=== PATIENT | female | born 1965 | race Caucasian/White ===

== ENCOUNTER 2022-11-18 12:31 | Emergency (ER) | payer BC, SELFPAY ==
[2022-11-18 12:32] VITALS: BP 146/99; PULSE 105; RESP 22; TEMP 36.8; O2SAT 97; BMI 36.6
--- NOTE | 2022-11-18 12:46 | CT_ITS ---
STUDY: CT ABDOMEN AND PELVIS WITH CONTRAST - URINARY TRACT REASON FOR EXAM: Female, 57 years old. Abdominal pain, diarrhea RADIATION DOSAGE (If Supplied By Facility): CTDIvol = ( 13.89 ) mGy, DLP = ( 1054.05 ) mGycm TECHNIQUE: IV 100mL Isovue-300 was administered. Transaxial images were obtained from the dome of the diaphragm to the symphysis pubis subsequent to intravenous contrast administration Multiplanar coronal and sagittal images were reformatted. Individualized Dose Optimization Techniques Were Used For This CT. COMPARISON: Prior study dated: May 07, 2016 FINDINGS: The visualized lung bases are unremarkable. The visualized portions of the heart are within normal limits. Normal liver. There is non-visualization of the gallbladder, which may be secondary to either contraction or a prior cholecystectomy. Normal spleen. Normal pancreas. Normal bilateral adrenal glands. There is a small hiatal hernia. Normal small intestine. There is diverticulosis, with thickening of the sigmoid colon wall, and pericolonic inflammation changes consistent with acute diverticulitis. The appendix is visualized and appears normal. There is diffuse atherosclerotic calcification of the abdominal aorta, without a demonstrated aneurysm. No retroperitoneal adenopathy. Normal right kidney. Normal left kidney. Normal urinary bladder. Normal abdominal wall. Normal osseous structures. CT/Abdomen/Pelvis W IV Cont ONLY IMPRESSION: Acute diverticulitis of the sigmoid colon. Atherosclerosis. Hiatal hernia. Electronically Signed: Deisi Falcon MD at 14:16 EDT ,
--- NOTE | 2022-11-18 12:50 | EX.ED.DYSGE1 ---
HPI <HAYDEN Mendez - Last Filed: 11/18/22 16:02> History of Present Illness Chief Complaint: Nausea/Vomiting/Diarrhea Narrative Narrative: 57-year-old female presents with diarrhea x5 weeks. After she eats anything she will have loose yellow/green stools about 10 minutes later. She states it looks watery with some sediment. She also has upper abdominal discomfort and occasional nausea and vomiting x1 every couple days. She has lost 20 pounds over the last 5 weeks. She saw her primary care doctor a week ago and had normal blood work. She cannot get in with GI until December. She had 1 episode of diverticulitis in 2009 and reports having a normal colonoscopy about 2 years ago. She is also had a cholecystectomy and bilateral tubal ligation. She denies antibiotic use or travel. No blood in her stool. <Dr. Kvng Roper DO - Last Filed: 11/18/22 16:25> History of Present Illness Informant: patient [facility] <HAYDEN Mendez - Last Filed: 11/18/22 16:02> [facility] Home Medications Darleen's wort 150 mg capsule 150 mg PO DAILY 05/07/16 [History Last Taken Unknown] ascorbic acid (vitamin C) 500 mg tablet (Vitamin C) 500 mg PO DAILY 05/07/16 [History Last Taken Unknown] omega-3s 360 ca-ljv-dft-fish oil 1,200 mg-D3 1,000 unit capsule (Fish Oil-Vit D3) 1 ea PO DAILY 05/07/16 [History Last Taken Unknown] oxycodone-acetaminophen 5 mg-325 mg tablet 1 - 2 tab PO Q4H PRN PRN Pain #20 tabs 05/07/16 [Rx Last Taken Unknown] amoxicillin 875 mg-potassium clavulanate 125 mg tablet 1 tab PO BID 7 days #14 tabs 11/18/22 [Rx Last Taken Unknown] Allergy/AdvReac Type Severity Reaction Status Date / Time avocado Allergy Mild Other Verified 11/18/22 12:38 Social History Smoking Status: Former smoker ROS <HAYDEN Mendez - Last Filed: 11/18/22 16:02> ROS ED ROS Narrative Constitutional: Negative for fever, chills, malaise. CVS: Negative for chest pain Respiratory: Negative for shortness of breath. GI: Positive for abdominal pain, nausea, vomiting, diarrhea. Negative for melena, hematochezia. : Negative for dysuria, hematuria or frequency. EXAM <HAYDEN Mendez - Last Filed: 11/18/22 16:02> Physical Exam Narrative Exam Narrative: CONST: Patient sitting in no acute distress. EYES: Normal inspection. NECK: Normal inspection. RESP: No respiratory distress, CTAB. CVS: Regular rate and rhythm, no murmur, no gallop. ABD: Soft with epigastric and left upper quadrant tenderness, no guarding or rebound, nondistended, no hepatosplenomegaly. Normal bowel sounds x4. SKIN: Color normal, no rash, warm, dry, intact. EXTREMITIES: Normal appearance, no pedal edema. NEURO: Oriented x4. PSYCH: Normal affect. Const Vital Signs: 11/18/22 12:32 11/18/22 14:46 Temperature 98.3 F Temperature Source Temporal Pulse Rate 105 H 88 Respiratory Rate 22 H 16 Blood Pressure 146/99 H 126/76 H Blood Pressure Mean 114 92 Pulse Ox 97 97 Oxygen Delivery Method Room Air Room Air <Dr. Kvng Roper DO - Last Filed: 11/18/22 16:25> Physical Exam Const Vital Signs: 11/18/22 12:32 11/18/22 14:46 Temperature 98.3 F Temperature Source Temporal Pulse Rate 105 H 88 Respiratory Rate 22 H 16 Blood Pressure 146/99 H 126/76 H Blood Pressure Mean 114 92 Pulse Ox 97 97 Oxygen Delivery Method Room Air Room Air MDM <HAYDEN Mendez - Last Filed: 11/18/22 16:02> [facility] Narrative Medical decision making narrative: Patient has 5 weeks of upper abdominal pain occasional nausea and vomiting and daily diarrhea. She appears well nontoxic. Heart rate is 105 with otherwise normal vital signs. She has mild upper abdominal tenderness with no peritoneal signs. Blood work only notable for mild hypokalemia at 3.3. She was given IV fluids and oral potassium. CT shows acute uncomplicated sigmoid diverticulitis. She was treated with Augmentin with first dose given here. I provided a GI referral to see if she can get in sooner than her other referral in December as she also should get a colonoscopy. Patient was discharged in stable condition. Differential: Cancer, stool infection, pancreatitis, electrolyte abnormalities Attending note: Patient seen and evaluated with fern cutter. I perform my own peet-ha-hock evaluation. I agree with the plan of work-up. Presents to the ED for evaluation. She states she is told to go to the ED. 5 weeks OR abdominal pain nausea and vomiting no hematemesis. She has been having diarrhea daily yellow-green in color. No blood. States when she eats within 15 minutes she did have loose stools. Colonoscopy 2 years ago. She had diverticulitis 2009 with her for colonoscopy has had a few colonoscopies since then. Her GI doctor moved to [place]. She had cholecystectomy tubal ligation. She seen her doctor a week ago had stool studies ordered however no collection kit. CT scan ordered of abdomen ordered however cannot get till the . She was referred to GI however appointment not till December through the [facility]. She states she new job position recurrent to work. She has a 20 pound weight loss in 5 weeks. Currently not nauseated. Presents here for evaluation. Exam mild tenderness mid abdomen. There is no guarding or rebound. Moist mucosal membranes. IV established we will give fluids stool studies ordered. Abdominal labs. Will obtain CT scan for further evaluation with mother's history of pancreatic cancer. Lab Data Attestation: I reviewed the patient's lab results. Labs: Laboratory Results - last 24 hr 11/18/22 12:50 WBC 10.9 RBC 5.28 Hgb 13.8 Hct 43.5 MCV 82.4 MCH 26.1 L MCHC 31.7 L RDW Std Deviation 42.3 RDW Coeff of Jose 14.3 Plt Count 298 MPV 11.1 Immature Gran % (Auto) 0.500 Neut % (Auto) 67.8 Lymph % (Auto) 22.0 [place] % (Auto) 7.6 Eos % (Auto) 1.3 Baso % (Auto) 0.8 Absolute Neuts (auto) 7.4 Absolute Lymphs (auto) 2.40 Nucleated RBC % 0 Sodium 139 Potassium 3.3 L Chloride 107 Carbon Dioxide 23.0 Anion Gap 9 BUN 8 Creatinine 0.79 Estim Creat Clear Calc 71.55 Est GFR (MDRD) Af Amer 96 Est GFR (MDRD) Non-Af 80 BUN/Creatinine Ratio 10.1 Glucose 92 Calcium 8.8 Total Bilirubin 0.60 AST 27 ALT 54 Alkaline Phosphatase 111 Total Protein 7.4 Albumin 3.6 Globulin 3.8 Albumin/Globulin Ratio 0.9 Lipase 23 Radiography Diagnostic Testing: Clinical Impression(s) from Imaging Studies Abdomen/Pelvis CT 11/18/22 12:46 IMPRESSION: Acute diverticulitis of the sigmoid colon. Atherosclerosis. Hiatal hernia. Electronically Signed: Deisi Falcon MD at 14:16 EDT , <Dr. Kvng Roper, DO - Last Filed: 11/18/22 16:25> [facility] MDM Narrative Medical decision making narrative: Patient has 5 weeks of upper abdominal pain occasional nausea and vomiting and daily diarrhea. She appears well nontoxic. Heart rate is 105 with otherwise normal vital signs. She has mild upper abdominal tenderness with no peritoneal signs. Blood work only notable for mild hypokalemia at 3.3. She was given IV fluids and oral potassium. CT shows acute uncomplicated sigmoid diverticulitis. She was treated with Augmentin with first dose given here. I provided a GI referral to see if she can get in sooner than her other referral in December as she also should get a colonoscopy. Patient was discharged in stable condition. Differential: Cancer, stool infection, pancreatitis, electrolyte abnormalities Attending note: Patient seen and evaluated with fern cutter. I perform my own nktm-yn-gtmy evaluation. I agree with the plan of work-up. Presents to the ED for evaluation. She states she is told to go to the ED. 5 weeks OR abdominal pain nausea and vomiting no hematemesis. She has been having diarrhea daily yellow-green in color. No blood. States when she eats within 15 minutes she did have loose stools. Colonoscopy 2 years ago. She had diverticulitis 2009 with her for colonoscopy has had a few colonoscopies since then. Her GI doctor moved to [place]. She had cholecystectomy tubal ligation. She seen her doctor a week ago had stool studies ordered however no collection kit. CT scan ordered of abdomen ordered however cannot get till the . She was referred to GI however appointment not till December through the [facility]. She states she new job position recurrent to work. She has a 20 pound weight loss in 5 weeks. Currently not nauseated. Presents here for evaluation. Exam mild tenderness mid abdomen. There is no guarding or rebound. Moist mucosal membranes. IV established we will give fluids stool studies ordered. Abdominal labs. Will obtain CT scan for further evaluation with mother's history of pancreatic cancer. CT findings concerning for sigmoid diverticulitis. Labs are all stable. She started on antibiotics, she is given GI referral locally to call if she wishes to see in on [facility] GI. Otherwise she will coordinate with her PCP. Lab Data Labs: Laboratory Results - last 24 hr 11/18/22 12:50 WBC 10.9 RBC 5.28 Hgb 13.8 Hct 43.5 MCV 82.4 MCH 26.1 L MCHC 31.7 L RDW Std Deviation 42.3 RDW Coeff of Jose 14.3 Plt Count 298 MPV 11.1 Immature Gran % (Auto) 0.500 Neut % (Auto) 67.8 Lymph % (Auto) 22.0 [place] % (Auto) 7.6 Eos % (Auto) 1.3 Baso % (Auto) 0.8 Absolute Neuts (auto) 7.4 Absolute Lymphs (auto) 2.40 Nucleated RBC % 0 Sodium 139 Potassium 3.3 L Chloride 107 Carbon Dioxide 23.0 Anion Gap 9 BUN 8 Creatinine 0.79 Estim Creat Clear Calc 71.55 Est GFR (MDRD) Af Amer 96 Est GFR (MDRD) Non-Af 80 BUN/Creatinine Ratio 10.1 Glucose 92 Calcium 8.8 Total Bilirubin 0.60 AST 27 ALT 54 Alkaline Phosphatase 111 Total Protein 7.4 Albumin 3.6 Globulin 3.8 Albumin/Globulin Ratio 0.9 Lipase 23 Radiography Diagnostic Testing: Clinical Impression(s) from Imaging Studies Abdomen/Pelvis CT 11/18/22 12:46 IMPRESSION: Acute diverticulitis of the sigmoid colon. Atherosclerosis. Hiatal hernia. Electronically Signed: Deisi Falcon MD at 14:16 EDT , Discharge Plan Triage Chief Complaint: Nausea/Vomiting/Diarrhea ED Midlevel Provider: Nannette Meza ED Provider: Kvng Roper Dx/Rx/DC Orders Clinical Impression: Chronic diarrhea, Diverticulitis, Hypokalemia Instructions: Diverticulitis Dc Prescriptions: New amoxicillin-pot clavulanate 875-125 mg tablet 1 tab PO BID 7 Days Qty: 14 0RF No Action ascorbic acid (vitamin C) [Vitamin C] 500 MG tablet 500 mg PO DAILY Darleen's wort 150 MG capsule 150 mg PO DAILY qtwmt-[id number]-fip-epa-fish oil-D3 [Fish Oil-Vit D3] 1 EACH capsule 1 ea PO DAILY oxycodone-acetaminophen 1 TABLET tablet 1 - 2 tab PO Q4H PRN PRN (Reason: Pain) Qty: 20 0RF Primary Care Provider: Mady Covarrubias Referrals: Juan R Haddad DO [Med Staff - Active Staff] - Care Physician,No Primary [Non-Staff] - Activity Restrictions/Additional Instructions: There is diverticulitis so I prescribed an antibiotic called Augmentin. Please follow up with GI for a colonoscopy. Disposition Disposition: Home, Self Care Discharge Date/Time: 11/18/22 14:57
[2022-11-18] MEDS: 0.9% Normal Saline 1,000 ML 999 ML IV (13:07)
[2022-11-18 13:14] LABS: Absolute Neutrophil Count 7.4 X10^3/uL (2.0-7.7); Basophil# 0.09 X10^3/uL; Basophil% 0.8 % (0-1); Eosinophil# 0.14 X10^3/uL; Eosinophils% 1.3 % (0-5); Hematocrit 43.5 % (37-47); Hemoglobin 13.8 g/dL (12.0-15.0); Mean Corp Hgb Conc 31.7 g/dL (32-36); Mean Corpuscular Hgb 26.1 pg (27.0-32.0); Mean Corpuscular Volume 82.4 fL (81-99); Mean Platelet Vol. 11.1 fl (6.2-12.0); Monocyte# 0.83 X10^3/uL; Monocyte% 7.6 % (0-10); NRBC Flagged by Analyzer 0 % (0-5); Neutrophil # 7.38 X10^3/uL (2.7-7.7); Neutrophil % 67.8 % (47-70); Platelet Count 298 K/mm3 (150-450); RBC Distribution Width CV 14.3 % (11.6-14.6); RBC Distribution Width SD 42.3 fl (35.1-43.9); Red Blood Count 5.28 M/mm3 (4.2-5.4); White Blood Count 10.9 K/mm3 (4.4-11.0)
[2022-11-18 13:27] LABS: ALB/GLOB Ratio 0.9 RATIO (0.9-2.4); AST(SGOT) 27 U/L (15-37); Alanine Aminotransfer ALT/SGPT 54 U/L (13-56); Albumin, Serum 3.6 g/dL (3.2-5.0); Alkaline Phosphatase 111 U/L (45-117); Anion Gap 9 (5-15); BUN 8 mg/dL (7-18); BUN/Creat Ratio 10.1 RATIO (10-20); Calcium,Total 8.8 mg/dL (8.5-10.1); Chloride 107 mmol/L (98-107); Creatinine, Serum 0.79 mg/dL (0.55-1.02); EST Glomerular Filtration Rate 80 mL/min (>60); Est Glom Filt Rate - Afr Amer 96 mL/min (>60); Estimated Creatinine Clearance 71.55 ml/min; Globulin 3.8 g/dL (2.2-4.2); Glucose 92 mg/dL (74-106); Lipase 23 U/L (13-75); Potassium 3.3 mmol/L (3.5-5.1); Protein, Total 7.4 g/dL (6.4-8.2); Sodium Level 139 mmol/L (136-145)
[2022-11-18] MEDS: Potassium Chloride Oral Tablet 20 MEQ 40 MEQ PO (13:42)
[2022-11-18 14:46] VITALS: BP 126/76; PULSE 88; RESP 16; O2SAT 97
[2022-11-18] MEDS: Amox/Clavulanate 875 MG Tablet PO (14:49)
== END 2022-11-18 14:57 | disposition home or self-care (01) ==
PROVIDERS: Physician Assistant; Emergency Provider Emergency Medicine; PCP Physician Assistant; Visit Provider Emergency Medicine
DX: K57.32 Diverticulitis of large intestine without perforation or abscess without bleeding (principal); Z87.891 Personal history of nicotine dependence; Z90.49 Acquired absence of other specified parts of digestive tract
CPT/HCPCS: 74177; 80053; 83690; 85025; 96360; 96361; 99284; J7030; Q9967; A4216

== ENCOUNTER 2024-09-03 05:24 | Day surgery (SDC) | payer OTHER, SELFPAY ==
[2024-09-03] VITALS (8 sets, daily range): BP systolic 109–135; BP diastolic 68–91; PULSE 63–89; RESP 14–18; TEMP 36–36.9; O2SAT 93–98; BMI 38.7
[2024-09-03] MEDS: Lactated Ringers 1,000 ML 15 ML IV (06:14)
--- NOTE | 2024-09-03 06:20 | PRE.ANES_ITS ---
ASA Classification* ASA Classification ASA Classification: 2 Assessment & Plan Anesthesia* Anesthesia Assessment Anesthesia Assessment: Discussed sedation and/or anesthesia options, risks, benefits, and alternatives with patient/parents/legal guardian/POA. Questions invited. The patient/parents/legal guardian/POA seems to understand and agrees to proceed with anesthesia plan. Reviewed the physical assessment, medical history, allergy history and patient home medications list prior to surgery/procedure/anesthetic and documented any changes. Performed airway and anesthesia risk assessments. Anesthesia Type Anesthesia Type: General History Source History Obtained from:: Patient and Chart Anesthesia Focused Assessment* Temperature: 97.5 F Pulse Rate: 89 Blood Pressure: 135/91 Respiratory Rate: 18 Pulse Ox: 97 Oxygen Delivery Method: Room Air Airway Assessment Mouth opens: >3 cm Mallampati Score: III Teeth Condition: Intact Neck Range of motion (ROM): Full ROM Focused Labs Anesthesia Preop lab: CBC WBC 10.9 K/mm3 (4.4-11.0) 11/18/22 12:50 11/18/22 RBC 5.28 M/mm3 (4.2-5.4) 11/18/22 12:50 11/18/22 Hgb 13.8 g/dL (12.0-15.0) 11/18/22 12:50 11/18/22 Hct 43.5 % (37-47) 11/18/22 12:50 11/18/22 Plt Count 298 K/mm3 (150-450) 11/18/22 12:50 11/18/22 CHEMISTRY Potassium 3.3 mmol/L (3.5-5.1) L 11/18/22 12:50 11/18/22 Sodium 139 mmol/L (136-145) 11/18/22 12:50 11/18/22 BUN 8 mg/dL (7-18) 11/18/22 12:50 11/18/22 Creatinine 0.79 mg/dL (0.55-1.02) 11/18/22 12:50 11/18/22 Glucose 92 mg/dL (74-106) 11/18/22 12:50 11/18/22 COAG Pre-Assessment Diagnosis/Proposed Procedure Planned Operative Procedure(s): COLONOSCOPY/EGD Anesthesia History Anesthesia History - needle polisher: Anesthesia History - needle polisher Hx Hospitalization No 08/29/24 10:48 Any Problems With Anesthesia No 08/29/24 10:48 Cholinesterase deficiency No 08/29/24 10:48 You/Your Family Experience No 08/29/24 10:48 fever (hyperthermia) with Relationship Recent Exposure to Contagious No 09/03/24 06:03 Disease Does patient have nerve No 08/29/24 10:48 stimulator Patient instructed to have device shut off --Does patient have Pacemaker No 09/03/24 06:03 or ICD? When Was Last Pacemaker Check QUESTION #4 FULL TEXT: You/Your Family Experience fever (hyperthermia) with Anesthesia Last Oral Intake Last Oral intake: Last Oral Intake NPO since 02:15 09/03/24 06:03 Meds taken in AM with sips of No 09/03/24 06:03 water? Meds patient instructed to take am of surgery PONV PONV - needle polisher: PONV - needle polisher Female Yes 08/29/24 10:48 HX of Motion Sickness Yes 08/29/24 10:48 HX of N/V After Surgery No 08/29/24 10:48 Non-Smoker Yes 08/29/24 10:48 Duration of Surgery greater No 08/29/24 10:48 than 60 minutes Number of Risk Factors 3 08/29/24 10:48 PONV Score Moderate Risk 08/29/24 10:48 Height & Weight Height & Weight: Anesthesia: Height & Weight Height 5 ft 5 in 09/03/24 06:03 Weight: 105.5 kg 09/03/24 06:03 Body Mass Index (BMI) 38.7 09/03/24 06:03 Respiratory Assessment Respiratory Assessment - needle polisher: Respiratory Tract Infection Hx - needle polisher Hx Respiratory Tract Infection No 08/29/24 10:48 STOP Sleep Apnea STOP Sleep Apnea - needle polisher: STOP Sleep Apnea - needle polisher Hx Hypertension No 08/29/24 10:48 Hx Sleep Apnea No 08/29/24 10:48 CPAP BIPAP Do you snore loudly (louder No 08/29/24 10:48 than talking or can be heard Do you often feel tired/ No 08/29/24 10:48 fatigued/ sleepy during daytime? Has anyone observed you stop No 08/29/24 10:48 breathing during sleep? STOP Results Negative 08/29/24 10:48 QUESTION #5 FULL TEXT : Do you snore loudly (louder than talking or can be heard through closed doors)? Tobacco Use History Tobacco Use History - needle polisher: Tobacco Use History - needle polisher Tobacco Use Smoking Status Former smoker 08/29/24 10:48 Hx Tobacco Use No 08/29/24 10:48 Years Smoking Packs Smoked per Day Smoking Cessation Date was No - quit smoking greater 08/29/24 10:48 within the last 15 years than 15 years ago Hx Smoking Cessation Date Hx Smoking Cessation Counseling Hematologic Medial History Hematologic Hx - needle polisher: Hematologic Medical Hx - edge finisher Hx of Blood Transfusion No 08/29/24 10:48 Hx of Transfusion in last 3 No 08/29/24 10:48 Months Date of Last Transfusion (if within last 3 months) Ever experience any problems No 08/29/24 10:48 with transfusion(s)? Specify any problems Hx of Preganancy in last 3 No 08/29/24 10:48 Months Nurse Filling Out Transfusion VCHRISTIN 08/29/24 10:48 & Questions: Date: 08/29/24 08/29/24 10:48 Time: 10:49 08/29/24 10:48 Patient unable to answer at this time (ie. confused, unrespo /Reproduction History /Reproductive History - needle polisher: /Reproductive Hx- needle polisher Hx Now Gestational Age (in weeks): EDC: Hx Hx Para Hx Section SAB Active Medications Active Medications: Current Medications Generic Name Dose Route Start Last Admin Trade Name Freq PRN Reason Stop Dose Admin Lactated Ringer's 1,000 mls @ 15 mls/hr 09/03/24 06:15 09/03/24 06:14 IV 15 mls/hr .Q48H JOEY Administration PFSH Medical History (Updated 08/29/24 @ 10:48 by Lizeth Ríos) Wears glasses Post-menopausal History of Clostridium difficile infection Kidney stone History of diverticulitis Former smoker History of colon polyps GERD (gastroesophageal reflux disease) Bloating Headaches due to old head injury Back pain Diverticulitis Home Medications ?Medication ?Instructions ?Recorded ?Last Taken ?Type loratadine 10 mg tablet (Claritin) 10 mg PO QDAY 06/2809/02/24 History ropinirole 2 mg tablet 2 mg PO QDAY 06/28/24 History topiramate 50 mg tablet 50 mg PO QDAY 06/28/2409/02 History Allergy/AdvReac Type Severity Reaction Status Date / Time avocado Allergy Mild Other Verified 09/03/24 06:02 Family History Brother Cancer kidney Mother Cancer pancreatic Father Heart disease Grandmother Thyroid disorder Surgical History (Updated 08/29/24 @ 10:48 by Lizeth Ríos) Hx of colonoscopy S/P tubal ligation S/P knee surgery S/P shoulder surgery S/P laparoscopic cholecystectomy Social History Smoking Status: Former smoker alcohol intake: current details: occasional Review of Systems (Anesthesia) ROS Narrative System reviewed and no additional complaints, except as documented. Physical Exam Const alert, oriented x3 and average body habitus Resp normal respiratory effort, normal air movement and clear to auscultation bilaterally Cardio regular rate, regular rhythm, no murmurs and diaphoretic
--- NOTE | 2024-09-03 06:30 | EGD_PTH ---
PATIENT: WANG HENDRICKS LOC: EN U#:[id number] AGE/SX: 59/F ROOM: RE09/03/[address]: Dr. Juan R Haddad DO : 1965 BED: DIS: 09/03/2024 SPEC #: [id number] RECD: 09/03/24 10:48 STATUS: GEOVANI HOPSON #: [id number] MARICRUZ: 09/03/24 06:[address]: Juan R Haddad DEPT: SURGICAL PATHOLOGY RECD BY: Lebron Bridges ENTERED: 09/03/24 11:51 SP TYPE: EGD BIOPSY OTHR DR: HAYDEN Carrasco Tissues: A - Esophagus, NOS B - Ileum, NOS Procedures: Surgery Specimen Level IV HEADER OPERATION: Colonoscopy with biopsies, EGD with biopsy PRE-OP DIAGNOSIS: GERD and with history of polyps in colon TISSUE SUBMITTED: A- Distal esophagus biopsy, B- Terminal ileum biopsy MICROSCOPIC DIAGNOSIS A. Esophagus, distal, biopsy: * Squamous mucosa with mild reactive change. * Columnar mucosa negative for goblet cell metaplasia. * Negative for dysplasia. B. Small bowel, terminal ileum, biopsy: * Normal villous architecture with mild acute inflammation. * Small mucosal lymphoid aggregates, favor reactive process. MICROSCOPIC DESCRIPTION Slides are reviewed. GROSS DESCRIPTION A. Received in formalin in a container labeled with the patient's name, date of , and distal esophagus biopsy are multiple early-pink fragments of mucosal tissue measuring 0.8 x 0.6 x 0.2 cm in aggregate. Submitted in toto in A1. B. Received in formalin in a container labeled with the patient's name, date of , and terminal ileum are multiple small early-pink fragments of mucosal tissue measuring 1.3 x 0.5 x 0.2 cm in aggregate. Submitted in toto in B1. [facility] 09-03-2024 CPT:33501b6
--- NOTE | 2024-09-03 06:38 | PCM.HP.STD ---
HPI - General General Date of Admission: 09/03/24 Date of Service: 09/03/24 Chief Complaint: GERD and h/o polyps in the colon HPI Narrative WANG HENDRICKS, is a 59 F who presents for an EGD and colonoscopy. Over the past year pt has been struggling with heartburn, bloating and and vomiting. Pt heartburn symptoms are worse in the evening and it often takes her hours to fall asleep. She will take TUMs on occasion but is not on daily PPI. SHe vomits in the morning on occasion but does not ever feel nauseous prior. When she eats she feels bloated and like the food is not digesting. She eats a healthy diet as she is trying to lose weight. She only drinks water, no carbonated or sugary drinks. It does not matter what she eats she will get these symptoms. She has never had an EGD. Last colonoscopy was a about years ago with hx of polyps. She is s/p cholecystectomy in 2007. Since then she has had soft stools up to 9x per day. This does not bother her because its not liquid. [facility] Medical History Wears glasses Post-menopausal History of Clostridium difficile infection Kidney stone History of diverticulitis Former smoker History of colon polyps GERD (gastroesophageal reflux disease) Bloating Headaches due to old head injury Back pain Diverticulitis Home Medications ?Medication ?Instructions ?Recorded ?Last Taken ?Type loratadine 10 mg tablet (Claritin) 10 mg PO QDAY 06/28/24 09/02/24 History ropinirole 2 mg tablet 2 mg PO QDAY 06/28/24 09/02/24 History topiramate 50 mg tablet 50 mg PO QDAY 06/28/24 09/02/24 History Allergy/AdvReac Type Severity Reaction Status Date / Time avocado Allergy Mild Other Verified 09/03/24 06:02 Family History Brother Cancer kidney Mother Cancer pancreatic Father Heart disease Grandmother Thyroid disorder Surgical History Hx of colonoscopy S/P tubal ligation S/P knee surgery S/P shoulder surgery S/P laparoscopic cholecystectomy Social History Smoking Status: Former smoker alcohol intake: current details: occasional ROS Constitutional Constitutional: Denies fatigue, fever(s), poor appetite, weight gain or weight loss Gastrointestinal Gastrointestinal: Denies belching, bloating, change in bowel habits, change in stool character, chewing difficulty, coffee ground emesis, constipation, cramping, diarrhea, dyspepsia, dysphagia, early satiety, excessive flatus, fecal incontinence, heartburn, hematemesis, hematochezia, hemorrhoids, loose stools, melena, nausea, odynophagia, rectal bleeding, tenesmus, vomiting or weight changes Vital Signs Vital Signs Vital Signs: 09/03/24 06:03 09/03/24 06:03 09/03/24 06:22 Temperature 97.5 F L 97.5 F L Temperature Source Temporal Pulse Rate 89 89 Respiratory Rate 18 18 Respiratory Pattern Normal Blood Pressure 135/91 H 135/91 H Blood Pressure Mean 105 Blood Pressure Source Monitor Blood Pressure Position Semi-Fowlers Blood Pressure Location Left Arm Pulse Ox 97 97 Oxygen Delivery Method Room Air Room Air Weight Weight: 232 lb 9.403 oz Body Mass Index (BMI) 38.7 Physical Exam Const alert, oriented x3, no apparent distress and healthy appearing General Appearance: cooperative GI normal to inspection, nondistended, normoactive bowel sounds, soft to palpation, non-tender and non-distended Percussion: normal to percussion Rectal Exam: deferred Assessment & Plan Assessment/Plan (1) Nausea: (2) History of colon polyps: (3) Bloating: (4) GERD (gastroesophageal reflux disease): PLAN: Assessment and Plan Assessment and Plan (1) GERD (gastroesophageal reflux disease): Status: Acute Plan: Pt is a 59 yo female pt here today for evaluation of heartburn, nausea and bloating worsening over the past year. She has never had an EGD and does not take daily PPI. She will be scheduled for an EGD to rule out inflammation in her esophagus or stomach. I started her on pantoprazole 40 mg daily. She will take famotidine as needed. She will have a GES to rule out gastroparesis. She has a hx of colonic polyps with last colonoscopy about 5 years ago. She will undergo colonoscopy at the same time as her EGD for colon cancer screening. -Start pantoprazole 40 mg daily -Famotidine PRN -GES -EGD and Colonoscopy -f/u after procedures (2) Bloating: Status: Acute (3) History of colon polyps: Status: Acute (4) Nausea: Status: Acute Orders: Orders Gastric Emptying Study Today K21.9 - Gastro-esophageal reflux disease without esophagitis, R14.0 - Abdominal distension (gaseous) Medications: New pantoprazole 40 mg PO QDAY 60 tabs 2RF Discontinued oxycodone-acetaminophen 5-325 mg Discontinued Reason: Pt no longer taking 1 - 2 tabs PO Q4H PRN PRN 20 tabs Pain amoxicillin-pot clavulanate 875-125 mg Discontinued Reason: Pt no longer taking 1 TAB PO BID 7 days 14 tabs 0RF
--- NOTE | 2024-09-03 07:22 | PCM.POST.ANE ---
Anesthesia: Postop Eval I Current Vital Signs Temperature: 98.4 F Pulse Rate: 64 Blood Pressure: 113/68 Respiratory Rate: 16 Pulse Ox: 97 Oxygen Delivery Method: Room Air Assessment Airway patent: Yes Spontaneous unlabored respirations: Yes Mental status: Awake nausea: No Vomiting: No Anesthesia Complication: No Fluid Hydration Crystalloid volume administer (ml): 600 Total IV fluid infused: 600 Progress Note Anesthesia document: Postop Eval 1 completed: Yes
--- NOTE | 2024-09-03 07:24 | OP.EGD_ITS ---
Patient Name: Elisabeth Foster Procedure Date: 09/03/2024 6:33 AM Date of : 1965 Age: 59 Procedure: Upper GI endoscopy Indications: Epigastric abdominal pain, Functional Dyspepsia, Indigestion, Heartburn, Esophageal reflux Providers: Juan R Haddad DO Referring MD: Mady Covarrubias Medicines: Monitored Anesthesia Care Patient Profile: This is a 59 year old female. Refer to note in patient chart for documentation of history and physical. Patient has symptoms of chronic abdominal distention, chronic epigastric abdominal pain, chronic dyspepsia, chronic heartburn, acute nausea, chronic nausea and chronic vomiting. Complications: No immediate complications. Procedure: Pre-Anesthesia Assessment: - Prior to the procedure, a History and Physical was performed, and patient medications and allergies were reviewed. The patient is competent. The risks and benefits of the procedure and the sedation options and risks were discussed with the patient. All questions were answered and informed consent was obtained. Patient identification and proposed procedure were verified by the physician in the pre-procedure area. Mental Status Examination: alert and oriented. Airway Examination: normal oropharyngeal airway and neck mobility. Respiratory Examination: clear to auscultation. CV Examination: normal. Prophylactic Antibiotics: The patient does not require prophylactic antibiotics. Prior Anticoagulants: The patient has taken no anticoagulant or antiplatelet agents except for NSAID medication. ASA Grade Assessment: II - A patient with mild systemic disease. After reviewing the risks and benefits, the patient was deemed in satisfactory condition to undergo the procedure. The anesthesia plan was to use monitored anesthesia care (MAC). Immediately prior to administration of medications, the patient was re-assessed for adequacy to receive sedatives. The heart rate, respiratory rate, oxygen saturations, blood pressure, adequacy of pulmonary ventilation, and response to care were monitored throughout the procedure. The physical status of the patient was re-assessed after the procedure. After obtaining informed consent, the endoscope was passed under direct vision. Throughout the procedure, the patient's blood pressure, pulse, and oxygen saturations were monitored continuously. The pediatric colonoscope was introduced through the mouth, and advanced to the third part of the duodenum. Small bowel enteroscopy was deemed necessary. The upper GI endoscopy was accomplished without difficulty. The patient tolerated the procedure well. Scope In: 6:53:55 AM Scope Out: 6:58:29 AM Total Procedure Duration Time 0 hours 4 minutes 34 seconds Findings: LA Grade B (one or more mucosal breaks greater than 5 mm, not extending between the tops of two mucosal folds) esophagitis with no bleeding was found 40 to 42 cm from the incisors. Biopsies were taken with a cold forceps for histology. Verification of patient identification for the specimen was done. Estimated blood loss was minimal. Bilious fluid was found in the gastric body and in the gastric antrum. No gross lesions were noted in the entire examined duodenum. Impression: - LA Grade B reflux esophagitis with no bleeding. Biopsied. - Bilious gastric fluid. - No gross lesions in the entire examined duodenum. Recommendation: - Discharge patient to home. - Resume previous diet. - Continue present medications. - Await pathology results. Procedure Code(s): --- Professional --- 86132, Small intestinal endoscopy, enteroscopy beyond second portion of duodenum, not including ileum; with biopsy, single or multiple CPT copyright 2021 [employer]. All rights reserved. The codes documented in this report are preliminary and upon tool shaper set up operator review may be revised to meet current compliance requirements. Juan R Haddad DO 09/03/2024 7:23:41 AM This report has been signed electronically. Number of Addenda: 0 Note Initiated On: 09/03/2024 6:33 AM
--- NOTE | 2024-09-03 07:24 | OP.CCLET_ITS ---
09/03/2024 Mady Covarrubias Re : Upper GI endoscopy procedure for Elisabeth Foster Dear Satish This procedure was performed on Tuesday, September 03, 2024. My impressions and recommendations are as follows: Impressions : - LA Grade B reflux esophagitis with no bleeding. Biopsied. - Bilious gastric fluid. - No gross lesions in the entire examined duodenum. Recommendations : - Discharge patient to home. - Resume previous diet. - Continue present medications. - Await pathology results. My findings are described in the full procedure note, which is enclosed. If I can be of further assistance, please feel free to contact me at . Sincerely, Juan R Haddad, 09/03/2024 7:23:41 AM This report has been signed electronically.
--- NOTE | 2024-09-03 07:58 | OP.COLON_ITS ---
Patient Name: Elisabeth Foster Procedure Date: 09/03/2024 6:58 AM Date of : 1965 Age: 59 Procedure: Colonoscopy Indications: Chronic diarrhea Providers: Juan R Haddad DO Referring MD: Mady Covarrubias Medicines: Propofol per Anesthesia, Monitored Anesthesia Care Patient Profile: This is a 59 year old female. Refer to note in patient chart for documentation of history and physical. Patient has symptoms of chronic abdominal distention, chronic epigastric abdominal pain, chronic dyspepsia, chronic heartburn, acute nausea, chronic nausea and chronic vomiting. Last Colonoscopy: 5 years ago. Complications: No immediate complications. Procedure: Pre-Anesthesia Assessment: - Prior to the procedure, a History and Physical was performed, and patient medications and allergies were reviewed. The patient is competent. The risks and benefits of the procedure and the sedation options and risks were discussed with the patient. All questions were answered and informed consent was obtained. Patient identification and proposed procedure were verified by the physician in the pre-procedure area. Mental Status Examination: alert and oriented. Airway Examination: normal oropharyngeal airway and neck mobility. Respiratory Examination: clear to auscultation. CV Examination: normal. Prophylactic Antibiotics: The patient does not require prophylactic antibiotics. Prior Anticoagulants: The patient has taken no anticoagulant or antiplatelet agents except for NSAID medication. ASA Grade Assessment: II - A patient with mild systemic disease. After reviewing the risks and benefits, the patient was deemed in satisfactory condition to undergo the procedure. The anesthesia plan was to use monitored anesthesia care (MAC). Immediately prior to administration of medications, the patient was re-assessed for adequacy to receive sedatives. The heart rate, respiratory rate, oxygen saturations, blood pressure, adequacy of pulmonary ventilation, and response to care were monitored throughout the procedure. The physical status of the patient was re-assessed after the procedure. After I obtained informed consent, the scope was passed under direct vision. Throughout the procedure, the patient's blood pressure, pulse, and oxygen saturations were monitored continuously. The pediatric colonoscope was introduced through the anus and advanced to the terminal ileum. The colonoscopy was performed without difficulty. The patient tolerated the procedure well. The quality of the bowel preparation was adequate. The terminal ileum, ileocecal valve, appendiceal orifice, and rectum were photographed. Scope In: 6:59:28 AM Scope Withdrawal Time 0 hours 7 minutes 47 seconds Scope Out: 7:09:45 AM Total Procedure Duration Time 0 hours 10 minutes 17 seconds Findings: The perianal and digital rectal examinations were normal. Pertinent negatives include normal sphincter tone. Multiple small and large-mouthed diverticula were found in the recto-sigmoid colon, sigmoid colon, descending colon, splenic flexure and transverse colon. A patchy area of the terminal ileum was congested. Estimated blood loss: none. Biopsies were taken with a cold forceps for histology. Verification of patient identification for the specimen was done by the nurse. Estimated blood loss was minimal. Impression: - Diverticulosis in the recto-sigmoid colon, in the sigmoid colon, in the descending colon, at the splenic flexure and in the transverse colon. - Congested mucosa in the terminal ileum. Biopsied. Recommendation: - Discharge patient to home. - Resume previous diet. - Continue present medications. - Await pathology results. - Repeat colonoscopy in 5 years for surveillance. Procedure Code(s): --- Professional --- 68004, Colonoscopy, flexible; with biopsy, single or multiple CPT copyright 2021 [employer]. All rights reserved. The codes documented in this report are preliminary and upon voucher clerk review may be revised to meet current compliance requirements. Juan R Haddad DO 09/03/2024 7:58:24 AM This report has been signed electronically. Number of Addenda: 0 Note Initiated On: 09/03/2024 6:58 AM
--- NOTE | 2024-09-03 07:59 | OP.CCLET_ITS ---
09/03/2024 Mady Covarrubias Re : Colonoscopy procedure for Elisabeth Foster Dear Satish This procedure was performed on Tuesday, September 03, 2024. My impressions and recommendations are as follows: Impressions : - Diverticulosis in the recto-sigmoid colon, in the sigmoid colon, in the descending colon, at the splenic flexure and in the transverse colon. - Congested mucosa in the terminal ileum. Biopsied. Recommendations : - Discharge patient to home. - Resume previous diet. - Continue present medications. - Await pathology results. - Repeat colonoscopy in 5 years for surveillance. My findings are described in the full procedure note, which is enclosed. If I can be of further assistance, please feel free to contact me at . Sincerely, Juan R Haddad, 09/03/2024 7:58:24 AM This report has been signed electronically.
--- NOTE | 2024-09-03 08:24 | PCM.POSTANE2 ---
Anesthesia Postop Eval I Sum Postop Eval Completion status Anesthesia document: Postop Eval 1 completed: Yes Anesthesia Postop Eval I Summary Anesthesia Postop Eval I Summary: Anesthesia Postop Eval I: Assessment Summary Airway patent Yes 09/03/24 07:23 [email or web address] Spontaneous unlabored Yes 09/03/24 07:23 [email or web address] respirations Mental status Awake 09/03/24 07:23 [email or web address] nausea No 09/03/24 07:23 [email or web address] Vomiting No 09/03/24 07:23 [email or web address] Anesthesia Postop Eval I: Fluid Summary Crystalloid volume administer 600 09/03/24 07:23 [email or web address] (ml) Colloids volume administered ( ml) Blood Product volume administered (ml) Total IV fluid infused 600 09/03/24 07:23 [email or web address] Anesthesia Postop Eval I: Summary Notes Anesthesia Complication No 09/03/24 07:23 [email or web address] Anesthesia Complication Comment: Post-operative progress note Anesthesia: Postop Eval II Evaluation Mental status: Awake Pain Level: 0 nausea: No Vomiting: No Complications Anesthesia Complication: No
== END 2024-09-03 08:15 | disposition home or self-care (01) ==
LOC: EN 05:24 → AC 05:25
PROVIDERS: PCP Physician Assistant; Referring Provider Physician Assistant; Visit Provider Internal Medicine Gastroenterology
PROC: 0DJD8ZZ Inspection of Lower Intestinal Tract, Via Natural or Artificial Opening Endoscopic (ICD-10-PCS; CPT 45378; principal; 2024-09-03 06:25)
DX: Z12.11 Encounter for screening for malignant neoplasm of colon (principal); K21.00 Gastro-esophageal reflux disease with esophagitis, without bleeding; K57.30 Diverticulosis of large intestine without perforation or abscess without bleeding; Z86.0100 Personal history of colon polyps, unspecified; Z87.891 Personal history of nicotine dependence; Z79.899 Other long term (current) drug therapy; K52.9 Noninfective gastroenteritis and colitis, unspecified
CPT/HCPCS: 45380; 43239; 88305; J2405

== ENCOUNTER → 2024-09-21 | Outpatient (CLI) | payer OTHER, SELFPAY ==
[2024-09-21 08:20] LABS: Erythrocyte Sedimentation Rate 13 mm/hr (0-30)
[2024-09-26 14:08] LABS: ACCA 21 units (0-90); ALCA 2 units (0-60); AMCA 52 units (0-100); gASCA 9 units (0-50)
== END | disposition home or self-care (01) ==
LOC: LAB 07:30
PROVIDERS: PCP Physician Assistant; Referring Provider Student in an Organized Health Care Education/Training Program; Visit Provider Student in an Organized Health Care Education/Training Program
DX: R19.5 Other fecal abnormalities (principal)
CPT/HCPCS: 36415; 83516; 85652; 86036; 86140; 86671

== ENCOUNTER → 2024-09-25 | Outpatient (CLI) | payer OTHER, SELFPAY ==
[2024-09-26 13:08] LABS: Calprotectin, Stool 48 ug/g (0-120)
== END | disposition home or self-care (01) ==
LOC: LABSPEC 07:25
PROVIDERS: PCP Physician Assistant; Referring Provider Student in an Organized Health Care Education/Training Program; Visit Provider Student in an Organized Health Care Education/Training Program
DX: R19.5 Other fecal abnormalities (principal)
CPT/HCPCS: 83993

== ENCOUNTER 2024-11-03 14:35 | Emergency (ER) | payer OTHER, SELFPAY ==
[2024-11-03 14:36] VITALS: BP 155/90; PULSE 94; RESP 16; TEMP 36.7; O2SAT 97; BMI 38.4
--- NOTE | 2024-11-03 15:27 | EX.ED.UPPERE ---
HPI History of Present Illness HPI Narrative: Healthy 59-year-old female was getting out of her shower yesterday she was cleaning it she slipped she fell out of the shower hit her right shoulder right hip. Said the hip feels fine she has small bruise. She does not want it x-rayed she has been walking on it. Her right shoulder and upper arm she has pain. Limited range of motion due to pain. She has had bilateral labral tears that have been surgically repaired in the past. No head injury. No LOC. No back pain. No chest or abdominal pain. This occurred around 5:00 yesterday. Chief Complaint: Upper Extremity Injury Informant: patient and spouse/S.O. Occured/Mechanism Mechanism/Context: Yes injury and Yes blunt trauma Onset/Context/Timing Onset: Yesterday Context: Sudden Onset Timing: Continuous Quality of Pain: Sharp Current Severity: Moderate Maximum Severity: Moderate Associated Symptoms Associated Symptoms: Negative for Parasthesia, Weakness or Loss of Funtion Narrative Narrative: 59-year-old [id number] female fell yesterday complaining of right shoulder and upper arm pain. Prior labral tears repaired in both upper shoulders in the past. Denies any other injuries. No head injury. No LOC. She did bruise her right hip but she has been walking on it and does not want it x-rayed. Prior similar symptoms: No Recent Illness/Hospitalization: No PFSH PFSH Medical History Wears glasses Post-menopausal History of Clostridium difficile infection Kidney stone History of diverticulitis Former smoker History of colon polyps GERD (gastroesophageal reflux disease) Bloating Headaches due to old head injury Back pain Diverticulitis Home Medications ?Medication ?Instructions ?Recorded ?Last Taken ?Type loratadine 10 mg tablet (Claritin) 10 mg PO QDAY 06/28/24 09/02/24 History ropinirole 2 mg tablet 2 mg PO QDAY 06/28/24 09/02/24 History topiramate 50 mg tablet 50 mg PO QDAY 06/28/24 09/02/24 History famotidine 40 mg tablet 40 mg PO QDAY #30 tabs 10/18/24 Unknown Rx metformin 500 mg tablet,extended 500 mg PO BID 10/24/24 Unknown History release 24 hr Allergy/AdvReac Type Severity Reaction Status Date / Time avocado Allergy Mild Other Verified 11/03/24 14:36 Family History Brother Cancer kidney Mother Cancer pancreatic Father Heart disease Grandmother Thyroid disorder Surgical History Hx of colonoscopy S/P tubal ligation S/P knee surgery S/P shoulder surgery S/P laparoscopic cholecystectomy Social History Smoking Status: Former smoker alcohol intake: current details: occasional ROS ROS ED ROS Narrative Denies recent illness. Constitutional Constitutional ED: Denies chills or fever(s) Eyes Eyes: Denies blurry vision ENT ENT ED: Denies ear pain Cardiovascular Cardiovascular: Denies chest pain Respiratory/Chest Respiratory/Chest: Denies cough or dyspnea Gastrointestinal Gastrointestinal: Denies abdominal pain Genitourinary Genitourinary ED: Denies dysuria or hematuria Musculoskeletal Musculoskeletal: Denies back pain Integumentary Denies abscess Neurologic Neurologic: Denies headache(s) Psychiatric Psychiatric: Denies anxiety Endocrine Endocrinology: Denies cold intolerance Hematologic/Lymphatic Hematologic/Lymphatic: Denies easy bleeding Allergic/Immunologic Allergic/Immunologic ED: Denies mouth swelling, tongue swelling or urticaria EXAM Physical Exam Narrative Exam Narrative: Well-appearing 59-year-old female. Vital signs are stable afebrile. Sitting up right in bed. is in a chair beside her. No distress. H EENT exam pupils round reactive light. No signs of trauma to her face or scalp. Nontender no hematoma. C-spine and neck nontender. Back and spine nontender. Lungs clear to auscultation bilaterally. Heart regular rhythm rate about 90 no murmur. Chest wall ribs nontender. Abdomen soft nontender. Pelvic girdle intact. Moving all 4 extremities. Limited range of motion of the right shoulder due to pain. I can passively raise her right shoulder over head and she can keep it up. I think the rotator cuff is intact. 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 Normal radial pulse. Left upper extremity and left lower extremity nontender she has a mild bruise on her right hip but has full flexion extension there is no shortening or rotation she can stand on it. Neurologically she is awake alert. GCS 15. Const Vital Signs: 11/03/24 14:36 Temperature 98.1 F Temperature Source Oral Pulse Rate 94 Respiratory Rate 16 Blood Pressure 155/90 H Blood Pressure Mean 111 Pulse Ox 97 Oxygen Delivery Method Room Air Positive well nourished and well developed; Negative for cachectic, contractures or unkempt General Appearance ED: well developed and NAD; Negative for unkempt, cachectic, contractures, cyanotic or diaphoretic Nutritional Appearance: Negative for cachectic HEENT Reports moist mucous membranes normocephalic and atraumatic Eyes PERRL and EOMs intact bilaterally Neck full ROM and supple General: Negative for tenderness Lymph Lymphatic: Negative for other Chest Wall inspection of chest normal and palpation of chest normal Resp normal respiratory effort Cardio regular rate, regular rhythm, S1 normal heart sound, S2 normal heart sound and no murmurs GI non-tender, non-distended and no masses Auscultation: normoactive bowel sounds Palpation: soft; Negative for tender, guarding or rebound tenderness present Back/Spine no CVA tenderness Extremity normal to inspection and full ROM Extremity Narrative: Except right shoulder proximal humerus tender. Limited range of motion. No deformity. Elbow, forearm, wrist and hand are nontender. 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 Normal radial pulse. Right hip is a small bruise. But full flexion extension. She can stand on it. There is no shortening or rotation. Neuro oriented x3, CN's II-XII intact bilaterally, moves all extremities, no focal motor deficits and no sensory deficits noted Sensorium / Orientation: alert, oriented to person, oriented to place and oriented to time Motor Exam: strength 5/5 throughout Psych mental status grossly normal Appearance: Negative for unkempt Mood & Affect: Negative for depressed, anxious or tearful Skin General Skin Exam: Negative for petechiae Lesions: no lesions Rashes: no rashes MDM MDM MDM Narrative Medical decision making narrative: 59-year-old female slipped and fell getting out of her shower today when she was cleaning up. Landed on her right shoulder complaining of pain. X-rays are being obtained of the shoulder and humerus. No other injuries other than a hip contusion. She has been walking on that and does not want an x-ray. Repeat exam patient doing well at 4:45 PM. I went over her x-rays with her. Is being treated as a shoulder contusion. Ice. Rest. Motrin and Tylenol. Follow-up if not improving. History & Record Review Discussion w/independent historian: Patient and Family Additional record(s) reviewed:: Prior inpatient record, Prior outpatient record, Prior ED visit and Prior labs Radiography Diagnostic Testing: Right shoulder x-ray, 4 views myself and radiologist shows no acute abnormality. Right humerus x-rays, 2 views, interpreted myself and radiologist shows no acute abnormality. Discharge Plan Triage Chief Complaint: Upper Extremity Injury ED Provider: Diogo Harrison Dx/Rx/DC Orders Clinical Impression: Fall, Contusion of right shoulder, Contusion of hip, right Instructions: ED Contusion, Upper Extremity Prescriptions: No Action loratadine [Claritin] 10 mg tablet 10 mg PO QDAY ropinirole 2 mg tablet 2 mg PO QDAY topiramate 50 mg tablet 50 mg PO QDAY metformin 500 mg tablet extended release 24 hr 500 mg PO BID famotidine 40 mg tablet 40 mg PO QDAY Qty: 30 2RF Primary Care Provider: Mady Covarrubias Referrals: Rosendo Mann MD [Non-Staff] - 10-14 Days if not better Mady Covarrubias PA [Primary Care Provider] - Activity Restrictions/Additional Instructions: Motrin for pain and swelling. Tylenol for pain Ice to your shoulder. Increase activity as tolerated. If not improving follow-up with orthopedics. Print Language: [place] Disposition Disposition: Home, Self Care
--- NOTE | 2024-11-03 15:40 | RAD_ITS ---
EXAM: XR Right Shoulder Complete, 2 or More Views CLINICAL INDICATION: FALL, PAIN TECHNIQUE: Two or more views of the right shoulder. COMPARISON: No relevant prior studies available. FINDINGS: BONES/JOINTS: Mild degenerative changes of the acromioclavicular and glenohumeral joints. No acute fracture. No dislocation. SOFT TISSUES: Soft tissue swelling. RAD/Shoulder min 2 Views IMPRESSION: Degenerative changes as above. Reading Location: [id number]
--- NOTE | 2024-11-03 15:40 | RAD_ITS ---
EXAM: XR Right Humerus, 2 or More Views CLINICAL INDICATION: FALL, PAIN TECHNIQUE: Frontal and lateral views of the right humerus. COMPARISON: No relevant prior studies available. FINDINGS: BONES/JOINTS: Mild degenerative changes of the visualized elbow and shoulder joints. No dislocation. No acute fracture. SOFT TISSUES: Unremarkable. RAD/Humerus min 2 Views IMPRESSION: No acute fracture. Reading Location: [id number]
--- OUTSIDE RECORDS SUMMARY | 2024-11-03 15:44 | XMS RPT_ITS | CCD ---
Author Organization [facility] CliniSyms Care Team Providers Care Management And Budget Analyst Name Role Phone Enoc Oliveira MD Primary Care Provider [phone] PHYSICIAN, NONE Primary Care Physician Frank Bashir DO, DR. MARY Attending Frank ford PHYSICIAN, NONE Primary Care Unavailable AMY PENA, DR. MARY Attending Frank ford PHYSICIAN, NONE Primary Care Unavailable Enoc Oliveira MD Primary Care Provider Enoc Oliveira MD Primary Care Provider Eric CERTIFIED MASTER SAFECRACKER.Nimco DAILEY Unavailable Mady Covarrubias PA-C Unavailable Mady Sauceda Primary Care Provider Mady Sauceda Referring Provider Vira Toribio Attending Provider Catie PENA, Dr. Pete Attending Provider Catie PENA, Dr. Pete Other Provider Vira Toribio Referring Provider ENOC OLIVEIRA Primary Care Unavailable MADY COVARRUBIAS Attending Unavailable ENOC OLIVEIRA Primary Care Unavailable SHAN VARGAS Referring Unavailable ENOC OLIVEIRA Primary Care Unavailable SELF Referring Unavailable SHAN VARGAS Attending Unavailable CAMI VENEGAS Attending Unavailable ENOC OLIVEIRA Primary Care Unavailable MADY COVARRUBIAS Referring Unavailable ENOC OLIVEIRA Primary Care Unavailable ENOC OLIVEIRA Referring Unavailable ENOC OLIVEIRA Primary Care Unavailable Knlivier CERTIFIED MASTER SAFECRACKER.Nimco DAILEY Unavailable Mady Covarrubias PA-C Unavailable Eric CERTIFIED MASTER SAFECRACKER.MOTOR VEHICLE TECHNICIAN, Nimco Unavailable Satish MARLOWC, Mady Unavailable Covarrubias PA, Mady Primary Care Unavailable Covarrubias PA, Mady Referring Unavailable Pranay Baum Attending Unavailable Covarrubias PA, Mady Primary Care Unavailable Covarrubias PA, Mady Referring Unavailable Dana PAPranay Attending Unavailable Vira Valderrama Attending Unavailable Covarrubias PA, Mady Primary Care Unavailable Covarrubias PA, Mady Referring Unavailable Covarrubias PA, Mady Primary Care Unavailable Covarrubias PA, Mady Referring Unavailable FriendJuan R Attending Unavailable Covarrubias PA, Mady Referring Unavailable Covarrubias PA, Mady Primary Care Unavailable Vira Valderrama Attending Unavailable Vira Valderrama Attending Unavailable Covarrubias PA, Mady Referring Unavailable Covarrubias PA, Mady Primary Care Unavailable Covarrubias PA, Mady Primary Care Unavailable Covarrubias PA, Mady Referring Unavailable FriendJuan R Consulting Unavailable FriendJuan R Attending Unavailable Vira Valderrama Referring Unavailable Covarrubias PA, Mady Primary Care Unavailable Vira Valderrama Attending Unavailable Vira Valderrama Attending Unavailable Vira Valderrama Referring Unavailable Covarrubias PA, Mady Primary Care Unavailable Allergies Allergy Classification Reported Allergen(s) Allergy Type Date of Onset Reaction(s) Facility (20 sources) avocado allergenic extract; Translations: [AVOCADO] Drug Allergy 12-05-2014 Anaphylaxis [facility] (1 source) avocado oil Drug Allergy 09-21-2024 [facility] Repository Medications Current Medications Medication Drug Class(es) Dates Sig (Normalized) Sig (Original) clobetasol propionate 0.0005 mg/mg topical ointment (20 sources) Corticosteroid Start: 08-06-2020 clobetasol (TEMOVATE) 0.05 % ointment Indications: Lichen sclerosus et atrophicus TO AFFECTED AREA.twice daily x 4 weeks then at night x 4 weeks then every other day x 4 weeks then taper to 1-2 times/week. 60 g 3 08/06/2020 Active Comment on above: TO AFFECTED AREA.twi ce daily x 4 weeks then at night x 4 weeks then every other day x 4 weeks then taper to 1-2 times/week. enteric contrast (will be provided with radiology test) (1 source) Start: 11-12-2022 End: 11-13-2022 enteric contrast (will be provided with radiology test) Indications: Diarrhea, unspecified type , Generalized abdominal pain , Bloating , Left lower quadrant abdominal pain , Hx of diverticulitis of colon For CT ABD/PEL W IVCON Routine order Administer, As Directed One Time Only, via Oral, Rectal, both Oral and Rectal, Enteric Tube, Stoma or Indwelling Catheter, Enteric Contrast as designated per enteric contrast guidelines 1 Each 0 11/12/2022 11/13/2022 Active Comment on above: For CT ABD/PEL W IVC ON Routine order Administer, As Directed One Time Only, via Oral, Rectal, both Oral and Rectal, Enteric Tube, Stoma or Indwelling Catheter, Enteric Contrast as designated per enteric contrast guidelines famotidine 40 mg oral tablet (4 sources) Histamine-2 Receptor Antagonist Start: 09-21-2024 End: 10-18-2024 take 1 tablet by mouth once daily Famotidine 40 mg tablet Active 40 mg PO daily October 18, 2024 3:07pm iv contrast (will be provided with radiology test) (1 source) Start: 11-12-2022 End: 11-13-2022 iv contrast (will be provided with radiology test) Indications: Diarrhea, unspecified type , Generalized abdominal pain , Bloating , Left lower quadrant abdominal pain , Hx of diverticulitis of colon CT ABD/PEL -Inject, intravenously, once for 1 dose.No IV access, insert saline lock prior to the beginning of sedation, infusion, injection of imaging exam. Discontinue saline lock post exam. If Pt. has a central line or IVAD, may access for administration according to line specific nursing protocol. Once exam is complete flush line and de-access according to line specific nursing protocol in the CT contrast administration guidelines link. 1 Each 0 11/12/2022 11/13/2022 Active Comment on above: CT ABD/PEL -Inject, intravenously, once for 1 dose.No IV access, insert saline lock prior to the beginning of sedation, infusion, injection of imaging exam. Discontinue saline lock post exam. If Pt. has a central line or IVAD, may access for administration according to line specific nursing protocol. Once exam is complete flush line and de-access according to line specific nursing protocol in the CT contrast administration guidelines link. loratadine 10 mg oral tablet (20 sources) Start: 06-09-2019 take 1 tablet by mouth once daily Loratadine (Claritin) 10 mg tablet Active 10 mg PO daily June 28, 2024 1:00am Comment on above: Take 1 tablet by chapo th once daily. As needed. 24 hr metFORMIN hydrochloride 500 mg extended release oral tablet (1 source) Biguanide Start: 10-24-2024 take 1 tablet by mouth twice daily Metformin 500 mg tablet extended release 24 hr Active 500 mg PO TWICE A DAY October 24, 2024 12:00am rOPINIRole 2 mg oral tablet (20 sources) Nonergot Dopamine Agonist Start: 05-12-2023 End: 08-16-2024 take 1 tablet by mouth once daily Ropinirole 2 mg tablet Active 2 mg PO daily June 28, 2024 1:00am Start: 08-13-2022 End: 08-16-2024 rOPINIRole (REQUIP) 1 mg tab let Take one tab 1/2 hr before long vehicle rides as needed. 90 tablet 1 08/16/2024 Active Start: 04-08-2021 End: 08-13-2022 take 1 tablet by mouth once daily at bedtime rOPINIRole (REQUIP) 2 mg tablet Take 1 tablet by mouth daily at bedtime. 90 tablet 3 08/13/2022 Active Comment on above: Take 1 tablet by chapo th daily at bedtime. Take one tab 1/2 hr before long vehicle rides as needed. topiramate 50 mg oral tablet (12 sources) Start: 06-28-2024 take 1 tablet by mouth once daily Topiramate 50 mg tablet Active 50 mg PO daily June 28, 2024 1:00am Start: 05-07-2024 End: 11-04-2024 take 1 tablet by mouth once daily at bedtime, then take 2 tablets by mouth once daily at bedtime topiramate (TOPAMAX) 25 mg tablet Indications: Prediabetes , Class 3 severe obesity with serious comorbidity and body mass index (BMI) of 40.0 to 44.9 in adult, unspecified obesity type (HCC) TAKE 1 TABLET BY MOUTH DAILY AT BEDTIME FOR 7 DAYS, THEN 2 TABLETS DAILY AT BEDTIME. 187 tablet 07/30/2024 11/04/2024 Active Completed/Discontinued Medications Medication Drug Class(es) Dates Sig (Normalized) Sig (Original) acetaminophen 325 mg / oxyCODONE hydrochloride 5 mg oral tablet (4 sources) Opioid Agonist Start: 05-07-2016 End: 06-28-2024 Oxycodone-Acetamino phen 1 TABLET tablet Discontinued 1 - 2 {tbl} PO EVERY 4 HOURS NEEDED as needed for Pain May 07, 2016 1:00am June 28, 2024 8:52am Start: 05-07-2016 take 1 tablet by chapo th every four hours as needed Oxycodone-Acetaminophen Active 1 - 2 TABLET PO EVERY 4 HOURS NEEDED May 07, 2016 1:00am amoxicillin 875 mg / clavulanate 125 mg oral tablet (4 sources) Penicillin-class Antibacterial Start: 11-18-2022 End: 06-28-2024 Amoxicillin-Pot Clavulanate 875-125 mg tablet Discontinued 1 {tbl} PO TWICE A DAY 14 November 18, 2022 12:00am June 28, 2024 8:52am Start: 11-18-2022 take 1 tablet by chapo th twice daily Amoxicillin-Pot Clavulanate Active 1 TABLET PO TWICE A DAY 14 November 18, 2022 12:00am ascorbic acid 500 mg oral tablet (4 sources) Vitamin C Start: 05-07-2016 End: 06-28-2024 take 1 tablet by mouth once daily Ascorbic Acid (Vitamin C) (Vitamin C) 500 MG tablet Discontinued 500 mg PO DAILY May 07, 2016 1:00am June 28, 2024 8:52am cephalexin 500 mg oral capsule (2 sources) Cephalosporin Antibacterial Start: 07-11-2014 End: 07-16-2014 cephalexin 500 mg oral capsule Dose : 500 mg = 1 cap(s), Oral, BID, # 10 cap(s), 0 Refill(s) Start Date: 07/11/14 Stop Date: 07/16/14 Status: Ordered colestipol hydrochloride 1000 mg oral tablet (8 sources) Bile Acid Sequestrant Start: 09-21-2024 End: 10-24-2024 Colestipol 1 gram tablet Discontinued 1 g PO daily October 18, 2024 3:05pm October 24, 2024 4:31pm Start: 11-12-2022 End: 08-16-2023 take 1 tablet by mouth twice daily colestipol (COLESTID) 1 gram tablet Take 1 tablet by mouth twice daily. 60 tablet 1 11/12/2022 08/16/2023 Discontinued Comment on above: Take 1 tablet by [facility] twice daily. dicyclomine hydrochloride 10 mg oral capsule (4 sources) Anticholinergic Start: 11-13-19 23 End: 08-16-19 24 take 1 capsule by mouth at bedtime dicyclomine (BENTYL) 10 mg capsule Take 1 capsule by mouth before meals and at bedtime. 60 capsule 0 11/12/2022 08/16/2023 Discontinued Comment on above: Take 1 capsule by [facility] before meals and at bedtime. Yulov-9s-Tif-Epa-Fish Oil-D3 (Fish Oil + D3 Softgel) 1 EACH capsule (4 sources) Start: 05-07-19 End: 06-28-19 25 take 1 capsule by mouth once daily Hvcsl-1h-Akp-Epa-Fi sh Oil-D3 (Fish Oil + D3 Softgel) 1 EACH capsule Discontinued 1 NMA PO DAILY May 07, 2016 1:00am June 28, 2024 8:52am Start: 05-07-2016 take 1 capsule by [facility] once daily Ouvix-9o-Sbn-Epa-Fish Oil-D3 (Fish Oil + D3 Softgel) 1 EACH capsule Active 1 EACH PO DAILY May 07, 2016 1:00am pantoprazole 40 mg delayed release oral tablet (3 sources) Proton Pump Inhibitor Start: 06-28-2024 End: 08-29-2024 take 1 tablet by mouth once daily Pantoprazole 40 mg tablet,delayed release (DR/EC) Discontinued 40 mg PO daily 60 June 28, 2024 1:00am August 29, 2024 10:42am Pseudoephedrine (12 sources) alpha-Adrenergi c Agonist End: 08-16-2023 PSEUDOEPHEDRINE HCL (SUDAFED ORAL) Take by mouth as needed. 0 08/16/2023 Discontinued PSEUDOEPHEDRINE HCL (SUDAFED ORAL) Take by mouth as needed. 0 Active Comment on above: Take by mouth as nee ded. Darleen's Wort (4 sources) Start: 05-07-2016 End: 06-28-2024 take 1 capsule by mouth once daily Darleen's Wort 150 MG capsule Discontinued 150 mg PO DAILY May 07, 2016 1:00am June 28, 2024 8:52am Start: 05-07-2016 take 150 mg by mouth once melania y Darleen's Wort Active 150 MG PO DAILY May 07, 2016 1:00am Problems Active Problems Problem Classification Problem Date Documented Da te Episodic/Chronic Abdominal pain (7 sources) Generalized abdominal pain; Translations: [Generalized abdominal pain] 11-12-2022 Episodic Diverticulosis and diverticulitis (20 sources) Diverticulosis of colon; Translations: [Diverticulosis of large intestine without perforation or abscess without bleeding] Onset: 0 06-25-2019 Chronic Esophageal disorders (14 sources) Gastroesophageal reflux disease; Translations: [Gastro-esophageal reflux disease without esophagitis] Onset: 5 06-28-2024 Chronic Fluid and electrolyte disorders (4 sources) Hypokalemia; Translations: [Hypokalemia] 11-18-2022 Episodic Gastritis and duodenitis (1 source) Gastritis; Translations: [Gastritis, unspecified, without bleeding] Onset: 5 09-04-2024 Episodic Headache; including migraine (3 sources) Headache; Translations: [Post-traumatic headache, unspecified, not intractable] 06-28-2024 Episodic Miscellaneous mental health disorders (20 sources) Primary insomnia; Translations: [Primary insomnia] Onset: 0 Chronic Nausea and vomiting (10 sources) Nausea; Translations: [Nausea] Onset: 5 06-28-2024 Episodic Noninfectious gastroenteritis (4 sources) Chronic diarrhea; Translations: [Noninfective gastroenteritis and colitis, unspecified] 11-18-2022 Episodic Osteoarthritis (20 sources) Arthritis of right knee; Translations: [Unilateral primary osteoarthritis, right knee] Onset: 0 06-25-2019 Chronic Other and unspecified benign neoplasm (20 sources) History of polyp of colon; Translations: [Personal history of colonic polyps] Onset: 4 08-16-2023 Episodic Other gastrointestinal disorders (2 sources) Diarrhea; Translations: [Diarrhea, unspecified] 11-12-2022 Episodic Other gastrointestinal disorders (11 sources) Abdominal bloating; Translations: [Abdominal distension (gaseous)] 11-12-2022 Episodic Other gastrointestinal disorders (1 source) History of diverticulitis; Translations: [Personal history of other diseases of the digestive system] 11-12-2022 Episodic Other gastrointestinal disorders (6 sources) Loose stool; Translations: [Other fecal abnormalities] 09-21-2024 Episodic Other gastrointestinal disorders (1 source) Other fecal abnormalities; Translations: [Other fecal abnormalities] Onset: 5 Episodic Other gastrointestinal disorders (2 sources) Abdominal distension (gaseous); Translations: [Abdominal distension (gaseous)] Onset: 5 Episodic Other hereditary and degenerative nervous system conditions (20 sources) Restless legs; Translations: [Restless legs syndrome] Onset: 0 Chronic Other hereditary and degenerative nervous system conditions (1 source) Restless legs syndrome; Translations: [RLS (restless legs syndrome)] Onset: 1 Chronic Other nutritional; endocrine; and metabolic disorders (20 sources) Obese class II; Translations: [Obesity, unspecified] Onset: 0 Chronic Other nutritional; endocrine; and metabolic disorders (1 source) Severe obesity; Translations: [Class 3 severe obesity with serious comorbidity and body mass index (BMI) of 40.0 to 44.9 in adult, unspecified obesity type (HCC)] 07-28-2024 Chronic Other nutritional; endocrine; and metabolic disorders (1 source) Body mass index 40+ - severely obese; Translations: [Obesity, Class III, BMI 40-49.9 (morbid obesity)] Onset: 5 09-21-2024 Chronic Other nutritional; endocrine; and metabolic disorders (1 source) Weight gain; Translations: [Abnormal weight gain] Episodic Regional enteritis and ulcerative colitis (1 source) Crohn's disease of large intestine without complications; Translations: [Crohn's disease of colon without complication (HCC)] Onset: 5 Chronic Spondylosis; intervertebral disc disorders; other back problems (3 sources) Backache; Translations: [Dorsalgia, unspecified] 06-28-2024 Episodic Unclassified (1 source) Patient encounter status 07-23-2024 Unclassified (1 source) Obesity, Class III, BMI 40-49.9 (morbid obesity); Translations: [Obesity, Class III, BMI 40-49.9 (morbid obesity)] Onset: 5 Unclassified (1 source) Obesity, Class II, BMI 35-39.9; Translations: [Obesity, Class II, BMI 35-39.9] Onset: 0 Unclassified (1 source) History of colonic polyps; Translations: [History of colonic polyps] Onset: 4 Unclassified (2 sources) Personal history of colon polyps, unspecified; Translations: [Personal history of colon polyps, unspecified] Onset: 5 Past or Other Problems Problem Classification Problem Date Documented Da te Episodic/Chronic Diabetes mellitus without complication (20 sources) High hemoglobin A1c level; Translations: [Other abnormal glucose] Onset: 08-07-2020 Episodic Other connective tissue disease (20 sources) Trochanteric bursitis; Translations: [Trochanteric bursitis, left hip] Onset: 07-30-2020 07-30-2020 Episodic Other infections; including parasitic (20 sources) History of Clostridium difficile intestinal infection; Translations: [Personal history of other infectious and parasitic diseases] Onset: 06-25-2019 06-25-2019 Episodic Other non-traumatic joint disorders (20 sources) Pain in left knee; Translations: [Pain in joint, lower leg] Onset: 08-03-2021 Episodic Other screening for suspected conditions (not mental disorders or infectious disease) (20 sources) Patient encounter status; Translations: [Encounter for screening mammogram for malignant neoplasm of breast] Onset: 06-09-2019 Episodic Residual codes; unclassified (20 sources) FH: Thyroid disorder; Translations: [Family history of other endocrine, nutritional and metabolic diseases] Onset: 06-09-2019 Episodic Residual codes; unclassified (19 sources) Family history of malignant neoplasm of pancreas; Translations: [Family history of malignant neoplasm of digestive organs] Onset: 08-13-2022 Episodic Residual codes; unclassified (1 source) Family history of other endocrine, nutritional and metabolic diseases; Translations: [Family history of thyroid disease] Onset: 06-09-2019 Episodic Screening and history of mental health and substance abuse codes (20 sources) Ex-smoker; Translations: [Personal history of nicotine dependence] Onset: 06-09-2019 Episodic Results Test Name Value Interpretation Reference Range Facility Gastroenterology Visit Repor ton 10-24-2024 Gastroenterology Visit Report [facility] [place] [address] OFFICE VISIT Date of Service: 10/24/24 MR#: [id number] Acct: [id number] Name: ELISABETH HENDRICKS Rep #: [id number] : 1965 Provider: HAYDEN Rain Age/Sex: 59/F Location[place] [facility] [email or web address] Status: Signed Intake Vital Signs 09/03/24 06:03 Height 5 ft 5 in Intake Visit Reasons: 1 M FU Chief Complaint: heartburn Allergies avocado Allergy (Mild, Verified 09/21/24 06:54) Other Medications ???Medication ???Instructions ???Recorded ???Confirmed ???Type loratadine 10 mg tablet (Claritin) 10 mg PO QDAY 06/28/24 10/24/24 History ropinirole 2 mg tablet 2 mg PO QDAY 06/28/24 10/24/24 His tory topiramate 50 mg tablet 50 mg PO QDAY 06/28/24 09/21/24 Hi story famotidine 40 mg tablet 40 mg PO QDAY #30 tabs 10/18/24 Rx metformin 500 mg tablet,extended 500 mg PO BID 10/24/24 10/24/24 Hi story release 24 hr Nurse's Note: OV 10/24/24 Pt here for a f/u and reports she is doing well. Reports she has diarrhea depending on what she eats but otherwise is feeling well. Continues famotidine as needed. [facility] Medical History Wears glasses Post-menopausal History of Clostridium difficile infection Kidney stone History of diverticulitis Former smoker History of colon polyps GERD (gastroesophageal reflux disease) Bloating Headaches due to old head injury Back pain Diverticulitis Surgical History Hx of colonoscopy S/P tubal ligation S/P knee surgery S/P shoulder surgery S/P laparoscopic cholecystectomy Family History Brother Cancer kidney Mother Cancer pancreatic Father Heart disease Grandmother Thyroid disorder Social History Smoking Status: Former smoker alcohol intake: current details: occasional HPI HPI Chief Complaint: heartburn Details: ELISABETH HENDRICKS, is a 59 F who presents to the office today for f/u. [facility] established in Jun 2024 with heartburn, bloating and vomiting. Symptoms worse in the evening and affect her ability to sleep. Takes Tums PRN. Hx of colonoscopy with polyps. S/p cholecystomy in 2007 with loose stools since but does not bother her. EGD .09.23; LA Grade B reflux esophagitis with no bleeding. Biopsied. - Bilious gastric fluid. - No gross lesions in the entire examined duodenum. Colonoscopy .09.23: - Diverticulosis in the recto-sigmoid colon, in the sigmoid colon, in the descending colon, at the splenic flexure and in the transverse colon. - Congested mucosa in the terminal ileum. Biopsied OV 09.21.24 Pt here today to review results of her upper and lower endoscopy. Pt continues to struggle with epigastric pain and intermittent diarrhea. SHe started PPI but it gave her severe urgent loose stools so she discontinued it. SHe is still recovering from the loose stools but feels it is getting back to normal. She endorses flares of diarrhea intermittently for many years. Start famotidine and colestipol Biochemical work up 09.26.24; CRP H, ESR wnl IBD serology wnl OV 10.24.25 Pt doing well today. She has episodes of heartburn a few times per week which resolves with Pepcid 40 mg daily. She did not start the colestipol. She has been working on her diet which she feels has helped with her reflux symptoms. ROS Const Constitutional: No anorexia, fatigue, fever(s), weight change or sleep problems Eyes Eyes: No change in vision ENT ENT: No abnormal hearing, difficulty swallowing, mouth lesions, tongue swelling or throat swelling Resp Respiratory: No cough or shortness of breath Cardio Cardiology: No chest pain at rest, chest pain with exertion, shortness of breath or dyspnea on exertion Gastro GI: Positive for heartburn; No difficulty swallowing Genitourinary-Female: No difficulty urinating or burning urination Musc Musculoskeletal: Positive for restless legs and leg pain at night Skin Skin: No hair loss in leg, yellowing of the eye, itchy eyes, rash, skin ulcer or skin swelling Neuro Neurology: Positive for restless legs; No abnormal hearing, confusion or memory loss Psych Psychiatric: No anxiety, No confusion and No memory loss Endo Endocrine: No fatigue or weight change Aller/Imm Allergy/Immunologic: No itchy eyes, throat swelling or tongue swelling Jeff/Lymp Hematologic/Lymphatic : No easy bleeding, easy bruising or enlarged lymph nodes Exam Const General: cooperative and healthy appearing Orientation: alert HENSD Head: normal to inspection Eyes General: appearance normal, both eyes and all related structures Neck Neck: normal visual inspecti (more content not included)... Normal [facility] Calprotectin, Stoolon [address] 48 ug/g Normal 0-120 [facility] Comment on above: Result Comment: Conc entration Interpretation Follow-Up < 5 - 50 ug/g Normal None >50 -120 ug/g Borderline Re-evaluate in 4-6 weeks >120 ug/g Abnormal Repeat as clinically indicated Performed at: [facility] Lab[address] [id number] Shank Piece Tacker: Marah Arreaga MD, Phone: [phone] Performed By: #### L [id number] #### [facility] [address] [place], [address] [id number] 09-26-2024 ACCA 21 units Normal 0-90 [facility] Comment on above: Result Comment: Nega tive: <80 Equivocal: 80-90 Positive: >90 Performed By: #### L [id number], L2100.0000, [id number] #### [facility] [address] [place], [address] ALCA 2 units Normal 0-60 [facility] Comment on above: Result Comment: Nega tive:<55 Equivocal: 55-60 Positive: >60 Performed By: #### L [id number], L2100.0000, [id number] #### [facility] [address] [place], [address] AMCA 52 units Normal 0-100 [facility] Comment on above: Result Comment: Nega tive: <90 Equivocal: 90-100 Positive: >100 This test was developed and its performance characteristics determined by [facility]. It has not been cleared or approved by the Food and Drug Administration. The FDA has determined that such clearance or approval is not necessary. Performed By: #### L [id number], L2100.0000, L101.9900 #### [facility] [address] [place], [address] Atypical pANCA Negative Normal Negative [facility] Comment on above: Performed By: #### L [id number], L2100.0000, [id number] #### [facility] [address] [place], [address] COMMENT Comment Normal . [facility] Comment on above: Result Comment: Rosa kassie is not suggestive of Inflammatory Bowel Disease Performed at: [address] [id number] Shank Piece Tacker: Marah Arreaga MD, Phone: [id number] Performed By: #### L 501.6710, L2100.0000, L101.9900 #### [facility] [address] [place], [address] Deepak 9 units Normal 0-50 [facility] Comment on above: Result Comment: Nega tive: <45 Equivocal: 45-50 Positive: >50 Performed By: #### L 501.6710, L2100.0000, L101.9900 #### [facility] [address] [place], [address] Calprotectin stoolOrdered By : Vira Valderrama on 09-25-2024 Calprotectin stool 48 ug/g 0-120 [facility] Comment on above: Concentration Interp retation Follow-Up< 5 - 50 ug/g Normal None>50 -120 ug/g Borderline Re-evaluate in 4-6 weeks >120 ug/g Abnormal Repeat as clinically indicatedPerformed at: [address] [id number] Director: Marah Arreaga MD, Phone: [phone] Atypical P-ANCA titerOrdered By: Vira Valderrama on 09-21-2024 Neutrophil cytoplasmic Ab.perinuclear.atypica l IF (S) [Titer] Negative Negative [facility] CNOVon 09-21-2024 CNOV Office Visit (ENDOCC ) RUTHIEELISABETH Tiffany ([id number]) 1965 F Date Time Provider Department 09/21/24 4:30 PM CAMI VENEGAS [facility] During your visit today, we recorded the following information about you: Pulse Blood pressure Weight Height 85/minute 120/84 108.7 kg 1.61 m Cami Venegas, 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 Pertinent associated health conditions include RLS, elevated A1c, former smoker, insomnia From initial consult 05/07/2024: Previous attempt for weight loss: eating healthy lost weigh tin 2022, went down to 213 but regained weight (more sedentary work ) Current weight: 240 lbs Lifestyle Factors Diet and Eating behaviors 24h food recall: -- B: skips -- L: left over -- D: chicken or pork salad -- S: sweets -- sugary beverages: --Can improve reducing sugar Appetite Control -- --appetite control/portion control: she feels she overeats -- cravings sweets -- binge eating: n -- late night eating: n -- emotional eating: n Exercise -- no -- physical limitations: no 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 Snoring Do you snore loudly (louder than talking or loud enough to be heard through closed doors)? NO 2. Tired Do you often feel tired, fatigued, or sleepy during daytime? NO 3. Observed Has anyone observed you stop breathing during your sleep? NO 4. Blood Pressure Do you have or are you being treated for high blood pressure? NO 5. BMI BMI more than 35 kg/m2? 41 YES 6. Age Age over 50 yr old? 59 year old YES 7. Neck circumference Neck circumference greater than 40 cm? NO 8. Gender Gender male? female NO * Neck circumference is measured by staff High risk of FELISHA: answering yes to three or more items Low risk of FELISHA: answering yes to less than three items Stress -- manageable Social History Alcohol: y Smoking: Tobacco Use: .5 packs/day Quit 05/02/2007. Types: Cigarettes Recreational Drugs: n Starting weight - 05/07/2024 : 240 lb Recommended metformin or phentermine Previous experience with weight loss medication(s): Topamax Contraindications to weight loss medication(s): Interval HPI Last seen by endocrinology weight management 05/07/2024 - by Dr Vargas Current HPI Weight Management: - Previously prescribed Topamax with no perceived benefit. - Engages in regular exercise, including walking 1.5 miles daily and using the Merku po for chair aerobics. - Reports frustration with lack of weight loss despite consistent exercise and dietary efforts. - Consumes a high-protein diet, including protein shakes and bars, lean proteins, and vegetables. - Avoids eating after 19:00. - Experiences cravings for sweets, particularly after dinner. - Drinks at least 120 oz of water daily, sometimes flavored with sugar-free additives. - Family history of obesity; sister underwent bariatric surgery. - has lost significant weight on metformin and an injectable medication for diabetes. - Recent colonoscopy led to a diagnosis of Crohn's disease. - Previously tried a gluten-free diet with no significant improvement in symptoms. Current weight loss medication(s): Topamax Side effects with treatment: Na Weight graph: Cooking healthy for Diabetic 24 hr recall: B- 45 g protein shake and coffee S - protein bar - choice brand L- left overs - chicken veggie/rice D- cooking at home protein, starch, veggie Snacks: Desserts: Beverages: water Exercise / Physical Activity: Walking neighborhood - [place] Exercise bands Lazy fit po Knee pain Sleep: Sleeping ok Stress: Manageable / functional Review of Systems: Per HPI and/or patient questionnaire. Past History, Allergies, Medications PAST MEDICAL HISTORY Diagnosis Date Adhesive capsulitis of right shoulder 12/26/2014 Arthritis of right knee 06/25/2019 Bankart lesion of right shoulder 12/26/2014 Diverticulosis of colon 06/25/2019 Ex-smoker 06/09/2019 Started at age 15 up to 1 PPD and quit at 33 Family history of thyroid disease 06/09/2019 History of Clostridioides difficile colitis 06/25/2019 Impingement syndrome of right shoulder 12/26/2014 Obesity, Class II, BMI 35-39.9 06/25/2019 Other specified disorder of gallbladder 04/16/2008 Primary insomnia 06/25/2019 RLS (restless legs syndrome) 11/05/2019 Well adult exam 06/09/2019 PAST SURGICAL HISTORY Procedure Laterality Date ABDOMINAL SURGERY HX COLONOSCOPY 09/03/2024 diverticulosis- Dr. Haddad COLONOSCOPY GEN ANES 09/22/2020 Repeat in 3 years DIAGNOSTIC ARTHROSCOPY SHOULDER +- SYNOVIAL BX Right 12/25/2014 Right shoulder (more content not included)... Normal [facility] CRPon 09-21-2024 C-REACTIVE PROT 23.00 mg/L High 0.0-3.0 [facility] Comment on above: Performed By: #### L 501.6710, L2100.0000, L101.9900 #### [facility] [address] [place], [place], [id number] Chitobioside IgA antibody as sayOrdered By: Vira Valderrama on 09-21-2024 Chitobioside IgA IA Qn 21 units 0-90 [facility] Comment on above: Negative: <80 Equivo deangelo: 80-90 Positive: >90 Erythrocyte Sed Rateon 09-21 SED RATE 13 mm/hr Normal 0-30 [facility] Comment on above: Performed By: #### L 501.6710, L2100.0000, L101.9900 #### [facility] [address] [place], [place], [id number] Erythrocyte sedimentation ra teOrdered By: Vira Valderrama on 09-21-2024 ESR (Bld) [Velocity] 13 mm/h 0-30 [facility] Gastroenterology Visit Repor ton 09-21-2024 Gastroenterology Visit Report [facility] Gastroenterology [address] [place] [address] OFFICE VISIT Date of Service: 09/21/24 MR#: [id number] Acct: [id number] Name: ELISABETH HENDRICKS Rep #: [id number] : 1965 Provider: HAYDEN Rain Age/Sex: 59/F Location: [facility] Status: Signed Intake Vital Signs 09/03/24 06:03 Height 5 ft 5 in Intake Visit Reasons: Test Result Chief Complaint: heartburn Allergies avocado Allergy (Mild, Verified 09/21/24 06:54) Other Medications ???Medication ???Instructions ???Recorded ???Confirmed ???Type loratadine 10 mg tablet (Claritin) 10 mg PO QDAY 06/28/24 09/21/24 History ropinirole 2 mg tablet 2 mg PO QDAY 06/28/24 09/21/24 His tory topiramate 50 mg tablet 50 mg PO QDAY 06/28/24 09/21/24 Hi story colestipol 1 gram tablet 1 g PO QDAY #30 tabs 09/21/2408/31 Rx famotidine 40 mg tablet 40 mg PO QDAY #30 tabs 09/21/24 Rx Nurse's Note: Pt reports she stopped taking the Pantoprazole because it gave her uncontrollable diarrhea. Continues to have heartburn, belching and gas. PFSH Medical History Wears glasses Post-menopausal History of Clostridium difficile infection Kidney stone History of diverticulitis Former smoker History of colon polyps GERD (gastroesophageal reflux disease) Bloating Headaches due to old head injury Back pain Diverticulitis Surgical History Hx of colonoscopy S/P tubal ligation S/P knee surgery S/P shoulder surgery S/P laparoscopic cholecystectomy Family History Brother Cancer kidney Mother Cancer pancreatic Father Heart disease Grandmother Thyroid disorder Social History Smoking Status: Former smoker alcohol intake: current details: occasional HPI HPI Chief Complaint: heartburn Details: ELISABETH HENDRICKS, is a 59 F who presents to the office today for f/u. BGI established in Jun 2024 with heartburn, bloating and vomiting. Symptoms worse in the evening and affect her ability to sleep. Takes Tums PRN. Hx of colonoscopy with polyps. S/p cholecystomy in 2007 with loose stools since but does not bother her. EGD 09.03.24; LA Grade B reflux esophagitis with no bleeding. Biopsied. - Bilious gastric fluid. - No gross lesions in the entire examined duodenum. Colonoscopy 09.03.24: - Diverticulosis in the recto-sigmoid colon, in the sigmoid colon, in the descending colon, at the splenic flexure and in the transverse colon. - Congested mucosa in the terminal ileum. Biopsied OV 09.21.24 Pt here today to review results of her upper and lower endoscopy. Pt continues to struggle with epigastric pain and intermittent diarrhea. SHe started PPI but it gave her severe urgent loose stools so she discontinued it. SHe is still recovering from the loose stools but feels it is getting back to normal. She endorses flares of diarrhea intermittently for many years. ROS Const Constitutional: No fatigue, fever(s) or weight change ENT ENT: No difficulty swallowing Gastro GI: Positive for abdominal pain, bloating, heartburn and excessive flatus; No belching, change in bowel habits, change in stool character, coffee ground emesis, constipation, cramping, diarrhea, difficulty swallowing, feeling full early, incontinent of stools, Vomiting blood/hematemesis, Blood in stool, loose stools, Black,tarry stools, nausea/dyspepsia, pain with swallowing, vomiting or other Musc Musculoskeletal: Positive for joint pain, numbness, tingling, restless legs and leg pain at night Skin Skin: No yellowing of the eye or itchy eyes Neuro Neurology: Positive for numbness, tingling and restless legs Psych Psychiatric: No anxiety and No depression Endo Endocrine: No fatigue or weight change Aller/Imm Allergy/Immunologic: No itchy eyes Jeff/Lymp Hematologic/Lymphatic : No easy bleeding or easy bruising Exam Const General: cooperative and healthy appearing Orientation: alert HENMT Head: normal to inspection Eyes General: appearance normal, both eyes and all related structures Neck Neck: normal visual inspection Chest Chest palpation inspection: normal inspection of the chest Resp Effort Inspection: normal respiratory effort GI Inspection: normal to inspection Assessment and Plan Assessment and Plan (1) Loose stools: Status: Acute (2) GERD (gastroesophageal reflux disease): Status: Acute Plan: Elisabeth is a 59 yo female pt here today for f/u after her upper and lower endoscopy. EGD showing esophagitis and excess bile in her stomach. SHe was started on PPI however she was unable to tolerate due to loose stools. I have s (more content not included)... Normal [facility] - Miscellaneous t estsOrdered By: Vira Valderrama on 09-21-2024 Laboratory comment Francois (Report) Comment . [facility] Comment on above: Pattern is not sugge stive of Inflammatory Bowel DiseasePerformed at: [facility] [id number] Director: Marah Arreaga MD, Phone: [phone] Laminaribioside carbohydrate IgG antibody assayOrdered By: Vira Valderrama on 09-21-2024 Laminaribioside IgG IA Qn 2 units 0-60 [facility] Comment on above: Negative:<55 Equivoc al: 55-60 Positive: >60 Serum or plasma C reactive p rotein measurement (mass/volume)Ordered By: Vira Valderrama on 09-21-2024 CRP [Mass/Vol] 23.00 mg/L High 0.0-3.0 [facility] Serum or plasma mannobioside IgG antibody assay by immunoassay (units/volume)Ordered By: Vira Valderrama on 09-21-2024 Mannobioside IgG IA Qn 52 units 0-100 [facility] Comment on above: Negative: <90 Equivo deangelo: 90-100 Positive: >100 This test was developed and its performance characteristics determined by [facility]. It has not been cleared or approved by the Food and Drug Administration. The FDA has determined that such clearance or approval is not necessary. Colonoscopy Reporton 025 Colonoscopy Report [facility] Medical Records Department [address] [place] [address] Colonoscopy Report MR#: [id number] Acct: [id number] Name: ELISABETH HENDRICKS Rep #: [id number] : 1965 59 From: Juan R Haddad DO PCP: HAYDEN Carrasco Status:REG [facility] Patient Name: Elisabeth Hendricks Procedure Date: 09/03/2024 6:58 AM Date of : 1965 Age: 59 Procedure: Colonoscopy Indications: Chronic diarrhea Providers: Juan R Haddad DO Referring MD: Mady Covarrubias Medicines: Propofol per Anesthesia, Monitored Anesthesia Care Patient Profile: This is a 59 year old female. Refer to note in patient chart for documentation of history and physical. Patient has symptoms of chronic abdominal distention, chronic epigastric abdominal pain, chronic dyspepsia, chronic heartburn, acute nausea, chronic nausea and chronic vomiting. Last Colonoscopy: 5 years ago. Complications: No immediate complications. Procedure: Pre-Anesthesia Assessment: - Prior to the procedure, a History and Physical was performed, and patient medications and allergies were reviewed. The patient is competent. The risks and benefits of the procedure and the sedation options and risks were discussed with the patient. All questions were answered and informed consent was obtained. Patient identification and proposed procedure were verified by the physician in the pre-procedure area. Mental Status Examination: alert and oriented. Airway Examination: normal oropharyngeal airway and neck mobility. Respiratory Examination: clear to auscultation. CV Examination: normal. Prophylactic Antibiotics: The patient does not require prophylactic antibiotics. Prior Anticoagulants: The patient has taken no anticoagulant or antiplatelet agents except for NSAID medication. ASA Grade Assessment: II - A patient with mild systemic disease. After reviewing the risks and benefits, the patient was deemed in satisfactory condition to undergo the procedure. The anesthesia plan was to use monitored anesthesia care (MAC). Immediately prior to administration of medications, the patient was re-assessed for adequacy to receive sedatives. The heart rate, respiratory rate, oxygen saturations, blood pressure, adequacy of pulmonary ventilation, and response to care were monitored throughout the procedure. The physical status of the patient was re-assessed after the procedure. After I obtained informed consent, the scope was passed under direct vision. Throughout the procedure, the patient's blood pressure, pulse, and oxygen saturations were monitored continuously. The pediatric colonoscope was introduced through the anus and advanced to the terminal ileum. The colonoscopy was performed without difficulty. The patient tolerated the procedure well. The quality of the bowel preparation was adequate. The terminal ileum, ileocecal valve, appendiceal orifice, and rectum were photographed. Scope In: 6:59:28 AM Scope Withdrawal Time 0 hours 7 minutes 47 seconds Scope Out: 7:09:45 AM Total Procedure Duration Time 0 hours 10 minutes 17 seconds Findings: The perianal and digital rectal examinations were normal. Pertinent negatives include normal sphincter tone. Multiple small and large-mouthed diverticula were found in the recto-sigmoid colon, sigmoid colon, descending colon, splenic flexure and transverse colon. A patchy area of the terminal ileum was congested. Estimated blood loss: none. Biopsies were taken with a cold forceps for histology. Verification of patient identification for the specimen was done by the nurse. Estimated blood loss was minimal. Impression: - Diverticulosis in the recto-sigmoid colon, in the sigmoid colon, in the descending colon, at the splenic flexure and in the transverse colon. - Congested mucosa in the terminal ileum. Biopsied. Recommendation: - Discharge patient to home. - Resume previous diet. - Continue present medications. - Await pathology results. - Repeat colonoscopy in 5 years for surveillance. Procedure Code(s): --- Professional --- 89052, Colonoscopy, flexible; with biopsy, single or multiple CPT copyright 2021 [employer]. All rights reserved. The codes documented in this report are preliminary and upon medical biller/coder review may be revised to meet current compliance requirements. Juan R Haddad DO 09/03/2024 7:58:24 AM This report has been signed electronically. Number of Addenda: 0 Note Initiated On: 09/03/2024 6:58 AM 09/03/24 0758 Date Juan R Haddad DO Cosigner Signature: Date (if indicated) CC: Juan R Haddad DO; HAYDEN Carrasco Date Dictated: 09/03/24 0658 Date Transcribed: Wood Engraver: BRIANA Signed Normal [facility] EGD Reporton 09-03-2024 EGD Report [facility] Medical Records Department [address] [place] [address] EGD Report MR#: [id number] Acct: [id number] Name: ELISABETH HENDRICKS Rep #: [id number] : 1965 59 From: Juan R Haddad DO PCP: HAYDEN Carrasco Status:REG [facility] Patient Name: Elisabeth Hendricks Procedure Date: 09/03/2024 6:33 AM Date of : 1965 Age: 59 Procedure: Upper GI endoscopy Indications: Epigastric abdominal pain, Functional Dyspepsia, Indigestion, Heartburn, Esophageal reflux Providers: Juan R Haddad DO Referring MD: Mady Covarrubias Medicines: Monitored Anesthesia Care Patient Profile: This is a 59 year old female. Refer to note in patient chart for documentation of history and physical. Patient has symptoms of chronic abdominal distention, chronic epigastric abdominal pain, chronic dyspepsia, chronic heartburn, acute nausea, chronic nausea and chronic vomiting. Complications: No immediate complications. Procedure: Pre-Anesthesia Assessment: - Prior to the procedure, a History and Physical was performed, and patient medications and allergies were reviewed. The patient is competent. The risks and benefits of the procedure and the sedation options and risks were discussed with the patient. All questions were answered and informed consent was obtained. Patient identification and proposed procedure were verified by the physician in the pre-procedure area. Mental Status Examination: alert and oriented. Airway Examination: normal oropharyngeal airway and neck mobility. Respiratory Examination: clear to auscultation. CV Examination: normal. Prophylactic Antibiotics: The patient does not require prophylactic antibiotics. Prior Anticoagulants: The patient has taken no anticoagulant or antiplatelet agents except for NSAID medication. ASA Grade Assessment: II - A patient with mild systemic disease. After reviewing the risks and benefits, the patient was deemed in satisfactory condition to undergo the procedure. The anesthesia plan was to use monitored anesthesia care (MAC). Immediately prior to administration of medications, the patient was re-assessed for adequacy to receive sedatives. The heart rate, respiratory rate, oxygen saturations, blood pressure, adequacy of pulmonary ventilation, and response to care were monitored throughout the procedure. The physical status of the patient was re-assessed after the procedure. After obtaining informed consent, the endoscope was passed under direct vision. Throughout the procedure, the patient's blood pressure, pulse, and oxygen saturations were monitored continuously. The pediatric colonoscope was introduced through the mouth, and advanced to the third part of the duodenum. Small bowel enteroscopy was deemed necessary. The upper GI endoscopy was accomplished without difficulty. The patient tolerated the procedure well. Scope In: 6:53:55 AM Scope Out: 6:58:29 AM Total Procedure Duration Time 0 hours 4 minutes 34 seconds Findings: LA Grade B (one or more mucosal breaks greater than 5 mm, not extending between the tops of two mucosal folds) esophagitis with no bleeding was found 40 to 42 cm from the incisors. Biopsies were taken with a cold forceps for histology. Verification of patient identification for the specimen was done. Estimated blood loss was minimal. Bilious fluid was found in the gastric body and in the gastric antrum. No gross lesions were noted in the entire examined duodenum. Impression: - LA Grade B reflux esophagitis with no bleeding. Biopsied. - Bilious gastric fluid. - No gross lesions in the entire examined duodenum. Recommendation: - Discharge patient to home. - Resume previous diet. - Continue present medications. - Await pathology results. Procedure Code(s): --- Professional --- 11622, Small intestinal endoscopy, enteroscopy beyond second portion of duodenum, not including ileum; with biopsy, single or multiple CPT copyright 2021 [employer]. All rights reserved. The codes documented in this report are preliminary and upon medical biller/coder review may be revised to meet current compliance requirements. Juan R Haddad DO 09/03/2024 7:23:41 AM This report has been signed electronically. Number of Addenda: 0 Note Initiated On: 09/03/2024 6:33 AM 09/03/24 0724 Date Juan R Rodriguez Signature: Date (if indicated) CC: Juan R Haddad DO; HAYDEN Carrasco Date Dictated: 09/03/24632 Date Transcribed: Wood Engraver: BRIANA Signed [facility] MR/POSTOP.ANEon 09-03-2024 MR/POSTOP.[facility] Medical Records Department [address] [place] [address] Anesthesia Postop Eval I 09/03/24721 MR#: [id number] Acct: [id number] Name: ELISABETH HENDRICKS Rep #: [id number] : 1965 59 From: Lincoln Varghese PCP: HAYDEN Carrasco Status:[facility] Y Race: C Location: [place] [address] Anesthesia: Postop Eval I Current Vital Signs Temperature: 98.4 F Pulse Rate: 64 Blood Pressure: 113/68 Respiratory Rate: 16 Pulse Ox: 97 Oxygen Delivery Method: Room Air Assessment Airway patent: Yes Spontaneous unlabored respirations: Yes Mental status: Awake nausea: No Vomiting: No Anesthesia Complication: No Fluid Hydration Crystalloid volume administer (ml): 600 Total IV fluid infused: 600 Progress Note Anesthesia document: Postop Eval 1 completed: Yes 09/03/24722 Date Lincoln Garcia Signature: Date CC: Signed [facility] [id number] 09-03-2024 MR/POSTOPAN2 [facility] Medical Records Department [address] [place] [address] Anesthesia Postop Eval II 09/03/24823 MR#: [id number] Acct: [id number] Name: ELISABETH HENDRICKS Rep #: [id number] : 1965 59 From: Nakul Nugent MD PCP: HAYDEN Carrasco Status:DEP [facility] Y Race: C Location: [place] Anesthesia Postop Eval I Sum Postop Eval Completion status Anesthesia document: Postop Eval 1 completed: Yes Anesthesia Postop Eval I Summary Anesthesia Postop Eval I Summary: Anesthesia Postop Eval I: Assessment Summary Airway patent Yes 09/03/24 07:23 [email or web address] Spontaneous unlabored Yes 09/03/24 07:23 [email or web address] respirations Mental status Awake 09/03/24 07:23 [email or web address] nausea No 09/03/24 07:23 [email or web address] Vomiting No 09/03/24 07:23 [email or web address] Anesthesia Postop Eval I: Fluid Summary Crystalloid volume administer 600 09/03/24 07:23 [email or web address] (ml) Colloids volume administered ( ml) Blood Product volume administered (ml) Total IV fluid infused 600 09/03/24 07:23 [email or web address] Anesthesia Postop Eval I: Summary Notes Anesthesia Complication No 09/03/24 07:23 [email or web address] Anesthesia Complication Comment: Post-operative progress note Anesthesia: Postop Eval II Evaluation Mental status: Awake Pain Level: 0 nausea: No Vomiting: No Complications Anesthesia Complication: No 09/03/24823 Date Nakul Nugent MD Cosigner Signature: Date CC: Signed Normal [facility] Surgery Specimen Level Ronni 09-03-2024 Surgery Specimen Level IV -------- Patient Age/Sex Location Account Attending Physician -------- ELISABETH HENDRICKS Tiffany 59/F EN [id number] Juan R Haddad DO -------- Specimen: [id number] Received: 09/03/24 Status: GEOVANI De Los Santos Num: [id number] Spec Type: EGD BIOPSY Subm Dr: Juan R Haddad DO HEADER OPERATION: Colonoscopy with biopsies, EGD with biopsy PRE-OP DIAGNOSIS: GERD and with history of polyps in colon TISSUE SUBMITTED: A- Distal esophagus biopsy, B- Terminal ileum biopsy -------- MICROSCOPIC DIAGNOSIS A. Esophagus, distal, biopsy: * Squamous mucosa with mild reactive change. * Columnar mucosa negative for goblet cell metaplasia. * Negative for dysplasia. B. Small bowel, terminal ileum, biopsy: * Normal villous architecture with mild acute inflammation. * Small mucosal lymphoid aggregates, favor reactive process. MICROSCOPIC DESCRIPTION Slides are reviewed. GROSS DESCRIPTION A. Received in formalin in a container labeled with the patient's name, date of , and distal esophagus biopsy are multiple early-pink fragments of mucosal tissue measuring 0.8 x 0.6 x 0.2 cm in aggregate. Submitted in toto in A1. B. Received in formalin in a container labeled with the patient's name, date of , and terminal ileum are multiple small early-pink fragments of mucosal tissue measuring 1.3 x 0.5 x 0.2 cm in aggregate. Submitted in toto in B1. [facility] 09-03-2024 CPT:[id number] -------- Patient Age/Sex Location Account Attending Physician -------- ELISABETH HENDRICKS 59/F EN [id number] Juan R Haddad DO -------- Signed (signature on file) Dr. Perri Walters MD 09/11/24 0816 -------- Normal [facility] Comment on above: Performed By: #### P SUIV #### [facility] Tommie Bolanos. [place], [place], [id number] CBC W Auto Differential pane l (Bld)on 08-16-2024 Basophils (Bld) [#/Vol] 0.1 10*3/uL [facility] Basophils/100 WBC (Bld) 1 % [facility] Differential cell count method Nom (Bld) Auto [facility] Eosinophils (Bld) [#/Vol] 0.32 10*3/uL [facility] Eosinophils/100 WBC (Bld) 3.2 % [facility] Erythrocyte distribution width (RBC) [Ratio] 15.5 % High 11.5 - 15.0 % [facility] Hematocrit (Bld) [Volume fraction] 40.9 % 36.0 - 46.0 % [facility] Hemoglobin (Bld) [Mass/Vol] 13.4 g/dL 11.5 - 15.5 g/dL [facility] Immature granulocytes (Bld) [#/Vol] 0.04 10*3/uL [facility] Immature granulocytes/100 WBC (Bld) 0.4 % [facility] Interpretation and review of laboratory results Abnormal [facility] Lymphocytes (Bld) [#/Vol] 2.7 10*3/uL [facility] Lymphocytes/100 WBC (Bld) 27.4 % [facility] MCH (RBC) [Entitic mass] 26.6 pg 26.0 - 34.0 pg [facility] MCHC (RBC) [Mass/Vol] 32.8 g/dL 30.5 - 36.0 g/dL [facility] MCV (RBC) [Entitic vol] 81.3 fL 80.0 - 100.0 fL [facility] Monocytes (Bld) [#/Vol] 0.78 10*3/uL [facility] Monocytes/100 WBC (Bld) 7.9 % [facility] Neutrophils (Bld) [#/Vol] 5.93 10*3/uL [facility] Neutrophils/100 WBC (Bld) 60.1 % [facility] Nucleated RBC (Bld) [#/Vol] [facility] Nucleated RBC/100 WBC (Bld) [Ratio] 0 % /100 WBC [facility] Platelet mean volume (Bld) [Entitic vol] 9.9 fL 9.0 - 12.7 fL [facility] Platelets (Bld) [#/Vol] 342 10*3/uL [facility] RBC (Bld) [#/Vol] 5.03 10*6/uL 3.90 - 5.2 0 m/uL [facility] WBC (Bld) [#/Vol] 9.87 10*3/uL [facility] Basophils (Bld) [#/Vol] 0.10 10*3/uL Normal <0.11 [facility] Comment on above: Order Comment: Speci men Type: BLOOD SPECIMEN Ordering Facility: [facility] Address: [address] [place] [address] Performed By: #### 5 7021-8 #### [facility] [id number] [address] [place] [address] [place] Basophils/100 WBC (Bld) 1.0 % Normal [facility] Comment on above: Order Comment: Speci men Type: BLOOD SPECIMEN Ordering Facility: [facility] Address: [address] [place] [address] Performed By: #### 5 7021-8 #### [facility] [id number] [address] [place] [address] [place] Differential cell count method Nom (Bld) Auto Normal [facility] Comment on above: Order Comment: Speci men Type: BLOOD SPECIMEN Ordering Facility: [facility] Address: [address] [place] [address] Performed By: #### 5 7021-8 #### [facility] [id number] [address] [place] [address] [place] Eosinophils (Bld) [#/Vol] 0.32 10*3/uL Normal <0.46 [facility] Comment on above: Order Comment: Speci men Type: BLOOD SPECIMEN Ordering Facility: [facility] Address: [address] [place] [address] [place] [address] Performed By: #### 5 7021-8 #### [facility] CLIA [id number] [address] [place] [address] [place] Eosinophils/100 WBC (Bld) 3.2 % Normal [facility] Comment on above: Order Comment: Speci men Type: BLOOD SPECIMEN Ordering Facility: [facility] Address: [address] [place] [address] Performed By: #### 5 7021-8 #### [facility] CLIA [id number] [address] [place] [address] [place] Erythrocyte distribution width (RBC) [Ratio] 15.5 % High 11.5-15.0 [facility] Comment on above: Order Comment: Speci men Type: BLOOD SPECIMEN Ordering Facility: [facility] Address: [address] [place] [address] Performed By: #### 5 7021-8 #### [facility] CLIA [id number] [address] [place] [address] [place] Hematocrit (Bld) [Volume fraction] 40.9 % Normal 36.0-46.0 [facility] Comment on above: Order Comment: Speci men Type: BLOOD SPECIMEN Ordering Facility: [facility] Address: [address] [place] [address] Performed By: #### 5 7021-8 #### [facility] CLIA [id number] [address] [place] [address] [place] Hemoglobin (Bld) [Mass/Vol] 13.4 g/dL Normal 11.5-15.5 [facility] Comment on above: Order Comment: Speci men Type: BLOOD SPECIMEN Ordering Facility: [facility] Address: [address] [place] [address] Performed By: #### 5 7021-8 #### [facility] CLIA [id number] [address] [place], [place] [address] [place] Immature granulocytes (Bld) [#/Vol] 0.04 10*3/uL Normal <0.10 [facility] Comment on above: Order Comment: Speci men Type: BLOOD SPECIMEN Ordering Facility: [facility] Address: [address] [place] [address] Performed By: #### 5 7021-8 #### [facility] CLIA [id number] [address] [place] [address] [place] Immature granulocytes/100 WBC (Bld) 0.4 % Normal [facility] Comment on above: Order Comment: Speci men Type: BLOOD SPECIMEN Ordering Facility: [facility] Address: [address] [place] [address] Performed By: #### 5 7021-8 #### [facility] CLIA [id number] [address] [place] [address] [place] Lymphocytes (Bld) [#/Vol] 2.70 10*3/uL Normal 1.00-4.00 [facility] Comment on above: Order Comment: Speci men Type: BLOOD SPECIMEN Ordering Facility: [facility] Address: [address] [place] [address] Performed By: #### 5 7021-8 #### [facility] CLIA [id number] [address] [place] [address] [place] Lymphocytes/100 WBC (Bld) 27.4 % Normal [facility] Comment on above: Order Comment: Speci men Type: BLOOD SPECIMEN Ordering Facility: [facility] Address: [address] [place] [address] Performed By: #### 5 7021-8 #### [facility] CLIA [id number] [address] [place] [address] [place] MCH (RBC) [Entitic mass] 26.6 pg Normal 26.0-34.0 [facility] Comment on above: Order Comment: Speci men Type: BLOOD SPECIMEN Ordering Facility: [facility] Address: [address] [place] [address] Performed By: #### 5 7021-8 #### [facility] CLIA [id number] [address] [place] [address] [place] MCHC (RBC) [Mass/Vol] 32.8 g/dL Normal 30.5-36.0 [facility] Comment on above: Order Comment: Speci men Type: BLOOD SPECIMEN Ordering Facility: [facility] Address: [address] [place] [address] Performed By: #### 5 7021-8 #### [facility] CLIA [id number] [address] [place] [address] [place] MCV (RBC) [Entitic vol] 81.3 fL Normal 80.0-100.0 [facility] Comment on above: Order Comment: Speci men Type: BLOOD SPECIMEN Ordering Facility: [facility] Address: [address] [place] [address] Performed By: #### 5 7021-8 #### [facility] CLIA [id number] [address] [place] [address] [place] Monocytes (Bld) [#/Vol] 0.78 10*3/uL Normal <0.87 [facility] Comment on above: Order Comment: Speci men Type: BLOOD SPECIMEN Ordering Facility: [facility] Address: [address] [place] [address] Performed By: #### 5 7021-8 #### [facility] CLIA [id number] [address] [place] [address] [place] Monocytes/100 WBC (Bld) 7.9 % Normal [facility] Comment on above: Order Comment: Speci men Type: BLOOD SPECIMEN Ordering Facility: [facility] Address: [address] [place] [address] Performed By: #### 5 7021-8 #### [facility] CLIA [id number] [address] [place] [address] [place] Neutrophils (Bld) [#/Vol] 5.93 10*3/uL Normal 1.45-7.50 [facility] Comment on above: Order Comment: Speci men Type: BLOOD SPECIMEN Ordering Facility: [facility] Address: [address] [place] [address] Performed By: #### 5 7021-8 #### [facility] CLIA [id number] [address] [place] [address] [place] Neutrophils/100 WBC (Bld) 60.1 % Normal [facility] Comment on above: Order Comment: Speci men Type: BLOOD SPECIMEN Ordering Facility: [facility] Address: [address] [place] [address] Performed By: #### 5 7021-8 #### [facility] CLIA [id number] [address] [place] [address] [place] Nucleated RBC (Bld) [#/Vol] 10*3/uL Normal <0.01 [facility] Comment on above: Order Comment: Speci men Type: BLOOD SPECIMEN Ordering Facility: [facility] Address: [address] [place] [address] Performed By: #### 5 7021-8 #### [facility] CLIA [id number] [address] [place] [address] [place] Nucleated RBC/100 WBC (Bld) [Ratio] 0.0 /100 WBC Normal [facility] Comment on above: Order Comment: Speci men Type: BLOOD SPECIMEN Ordering Facility: [facility] Address: [address] [place] [address] Performed By: #### 5 7021-8 #### [facility] CLIA [id number] [address] [place] [address] [place] Platelet mean volume (Bld) [Entitic vol] 9.9 fL Normal 9.0-12.7 [facility] Comment on above: Order Comment: Speci men Type: BLOOD SPECIMEN Ordering Facility: [facility] Address: [address] [place] [address] Performed By: #### 5 7021-8 #### [facility] CLIA [id number] [address] [place] [address] [place] Platelets (Bld) [#/Vol] 342 10*3/uL Normal 150-400 [facility] Comment on above: Order Comment: Speci men Type: BLOOD SPECIMEN Ordering Facility: [facility] Address: [address] [place] [address] Performed By: #### 5 7021-8 #### [facility] CLIA [id number] [address] [place] [address] [place] RBC (Bld) [#/Vol] 5.03 10*6/uL Normal 3.90-5.20 [facility] Comment on above: Order Comment: Speci men Type: BLOOD SPECIMEN Ordering Facility: [facility] Address: [address] [place] [address] Performed By: #### 5 7021-8 #### [facility] CLIA [id number] [address] [place] [address] [place] WBC (Bld) [#/Vol] 9.87 10*3/uL Normal 3.70-11.00 [facility] Comment on above: Order Comment: Speci men Type: BLOOD SPECIMEN Ordering Facility: [facility] Address: [address] [place] [address] Performed By: #### 5 7021-8 #### [facility] CLIA [id number] [address] [place] [address] [place] CNOVon 08-16-2024 CNOV Office Visit (FAMPWS ) ELISABETH HENDRICKS ([id number]) 1965 F Date Time Provider Department 08/16/24 1:20 PM MADY COVARRUBIAS During your visit today, we recorded the following information about you: Temperature Pulse Respiration Blood pressure 97.8 degrees 84/minute 18/minute 120/88 Weight Height Last Period 107.5 kg 1.61 m 06/02/21 Mady Covarrubias PA-C 08/16/2024 2:13 PM Signed Chief Complaint Patient presents with: Yearly Exam HPI Elisabeth Hendricks is a 59 year old female who presents here today for physical. Patient with RLS, elevated A1c, former smoker, RLS, insomnia, obesity, and those as below. Restless Leg Syndrome: - Currently managed with medication which is effective. - Uses an additional 1 mg dose PRN for long rides (>45 minutes) and flights. - Does not use the extra dose daily - 2 mg dose at night helps with sleep by relaxing legs. Weight Management: - Has lost 3 lbs since May while taking Topamax. - Frustrated with lack of significant weight loss; expected to lose 40 lbs by September. - Exercises 3-4 days a week, including walking a mile and doing stretching exercises. - Reports hip pain during exercise but continues to walk. - Diet includes high protein and fiber, with limited carbs and sugars. - Eats two hard-boiled eggs and V8 juice for breakfast, leftovers for lunch, and healthy dinners. - Rarely eats fast food or desserts; drinks alcohol occasionally. - has lost significant weight since being diagnosed with diabetes and starting Ozempic and metformin. - Denies smoking or e-cigarette use. Preventive Care: - Scheduled for a colonoscopy on September 03. - Mammogram scheduled for this afternoon. Past medical history, appointments, medications, allergies reviewed. Previous Medical History PAST MEDICAL HISTORY Diagnosis Date Adhesive capsulitis of right shoulder 12/26/2014 Arthritis of right knee 06/25/2019 Bankart lesion of right shoulder 12/26/2014 Diverticulosis of colon 06/25/2019 Ex-smoker 06/09/2019 Started at age 15 up to 1 PPD and quit at 33 Family history of thyroid disease 06/09/2019 History of Clostridioides difficile colitis 06/25/2019 Impingement syndrome of right shoulder 12/26/2014 Obesity, Class II, BMI 35-39.9 06/25/2019 Other specified disorder of gallbladder 04/16/2008 Primary insomnia 06/25/2019 RLS (restless legs syndrome) 11/05/2019 Well adult exam 06/09/2019 Previous Surgical History PAST SURGICAL HISTORY Procedure Laterality Date ABDOMINAL SURGERY HX COLONOSCOPY GEN ANES 09/22/2020 Repeat in 3 years DIAGNOSTIC ARTHROSCOPY SHOULDER +- SYNOVIAL BX Right 12/25/2014 Right shoulder arthroscopic labral repair SAD, Lysis of adhesions and manipulation under anethesia EYE SURGERY HX KNEE SURGERY HX Left 04/01/2022 LAPS SURG CHOLECYSTECTOMY W/CHOLANGIOGRAPHY 05/01/2008 Normal IOC LIG/TRNSXJ FLP TUBE ABDL/VAG APPR UNI/BI 1994 Tubal ligation PAST SURGICAL HISTORY OF Left 2017 labreal repair PAST SURGICAL HISTORY OF Right 12/25/2014 labreal repair Family History FAMILY HISTORY Problem Relation Age of Onset Pancreatic Cancer Mother other (AAA) Father GI Sister GB Thyroid Sister other (RLS) Sister GI Sister GB other (RLS) Sister Coronary Artery Disease Brother Heart Brother pacemaker Hypertension Brother Hyperlipidemia Brother other (kidney cancer) Brother Hypertension Brother Hyperlipidemia Brother other (AAA) Brother Hypertension Brother Alzheimer's Disease No Family History Colon Cancer No Family History Prostate Cancer No Family History Breast Cancer No Family History Ovarian cancer No Family History Diabetes No Family History Kidney Disease No Family History Seizures No Family History Stroke No Family History Patient Allergies ALLERGIES Allergen Reactions Avocado Anaphylaxis Current Medications Current Outpatient Medications on File Prior to Visit Medication Sig topiramate (TOPAMAX) 25 mg tablet TAKE 1 TABLET BY MOUTH DAILY AT BEDTIME FOR 7 DAYS, THEN 2 TABLETS DAILY AT BEDTIME. clobetasol (TEMOVATE) 0.05 % ointment TO AFFECTED AREA.twice daily x 4 weeks then at night x 4 weeks then every other day x 4 weeks then taper to 1-2 times/week. loratadine (CLARITIN) 10 mg tablet Take 1 tablet by mouth once daily. As needed. No current facility-administered medications on file prior to visit. Social History Social History Tobacco Use Smoking status: Former Current packs/day: 0.00 Types: Cigarettes Quit date: 05/02/2007 Years since quittin.3 Smokeless tobacco: Never Vaping Use Vaping status: Never Used Substance Use Topics Alcohol use: Yes Comment: occasional 1-2 per month Drug use: No Review of Symptoms REVIEW OF SYSTEMS GENERAL: No weight loss, malaise or fevers HEENT: No changes in hearing or vision, no nose bleeds or other nasal problems (more content not included)... Normal [facility] metabolic 2000 panelOrdered By: Shakila Car on 08-16-2024 Albumin [Mass/Vol] 4.2 g/dL 3.9 - 4.9 g/dL [facility] ALP [Catalytic activity/Vol] 121 U/L 34 - 123 U/L [facility] ALT [Catalytic activity/Vol] 15 U/L 7 - 38 U/L [facility] Anion gap [Moles/Vol] 8 mmol/L 8 - 15 mmol/L [facility] AST [Catalytic activity/Vol] 15 U/L 13 - 35 U/L [facility] Bilirubin [Mass/Vol] 0.3 mg/dL 0.2 - 1 .3 mg/dL [facility] Calcium [Mass/Vol] 9.3 mg/dL 8.5 - 10. 2 mg/dL [facility] Chloride [Moles/Vol] 108 mmol/L High 98 - 10 7 mmol/L [facility] CO2 [Moles/Vol] 21 mmol/L Low 22 - 30 mmol/L [facility] Creatinine [Mass/Vol] 0.72 mg/dL 0.58 - 0.96 mg/dL [facility] GFR/1.73 sq M.predicted among non-blacks MDRD (S/P/Bld) [Vol rate/Area] 97 mL/min/{1.73_m2} - PINF [facility] Comment on above: Estimated Glomerular Filtration Rate (eGFR) is calculated using the 2020 CKD-EPI creatinine equation. This equation utilizes serum creatinine, sex, and age as parameters. The creatinine assay has traceable calibration to isotope dilution-mass spectrometry. Refer to KDIGO guidelines for clinical interpretation. In patients with unstable renal function, e.g. those with acute kidney injury, the eGFR may not accurately reflect actual GFR. Glucose [Mass/Vol] 95 mg/dL 74 - 99 mg/dL [facility] Comment on above: The [place] [employer] (ADA) provides guidance for cutoff values for fasting glucose and random glucose. The ADA defines fasting as no caloric intake for at least 8 hours. Fasting plasma glucose results between 100 to 125 mg/dL indicate increased risk for diabetes (prediabetes). Fasting plasma glucose results greater than or equal to 126 mg/dL meet the criteria for diagnosis of diabetes. In the absence of unequivocal hyperglycemia, results should be confirmed by repeat testing. In a patient with classic symptoms of hyperglycemia or hyperglycemic crisis, random plasma glucose results greater than or equal to 200 mg/dL meet the criteria for diagnosis of diabetes. Reference: Standards of Medical Care in Diabetes 2016, [place] [employer]. Diabetes Care. 2016.39(Suppl 1). Interpretation and review of laboratory results Abnormal [facility] Potassium [Moles/Vol] 3.9 mmol/L 3.7 - 5.1 mmol/L [facility] Protein [Mass/Vol] 7.1 g/dL 6.3 - 8.0 g/dL [facility] Sodium [Moles/Vol] 137 mmol/L 136 - 144 mmol/L [facility] Urea nitrogen [Mass/Vol] 15 mg/dL 7 - 21 mg/dL [facility] Comprehensive metabolic 2000 panelon 08-16-2024 Albumin [Mass/Vol] 4.2 g/dL Normal 3.9-4.9 [facility] Comment on above: Order Comment: Speci riley Type: BLOOD SPECIMEN Order[facility] Facility[facility] Address: [address] [place] [address] Performed By: #### 5 7021-8 #### [facility] CLIA [id number] [address] [place] [address] [place] ALP [Catalytic activity/Vol] 121 U/L Normal 34-123 [facility] Comment on above: Order Comment: Speci men Type: BLOOD SPECIMEN Ordering Facility: [facility] Address: [address] [place] [address] Performed By: #### 5 7021-8 #### [facility] CLIA [id number] [address] [place] [address] [place] ALT [Catalytic activity/Vol] 15 U/L Normal 7-38 [facility] Comment on above: Order Comment: Speci men Type: BLOOD SPECIMEN Ordering Facility: [facility] Address: [address] [place] [address] Performed By: #### 5 7021-8 #### [facility] CLIA [id number] [address] [place] [address] [place] Anion gap [Moles/Vol] 8 mmol/L Normal 8-15 [facility] Comment on above: Order Comment: Speci men Type: BLOOD SPECIMEN Ordering Facility: [facility] Address: [address] [place] [address] Performed By: #### 5 7021-8 #### [facility] CLIA [id number] [address] [place] [address] [place] AST [Catalytic activity/Vol] 15 U/L Normal 13-35 [facility] Comment on above: Order Comment: Speci men Type: BLOOD SPECIMEN Ordering Facility: [facility] Address: [address] [place] [address] Performed By: #### 5 7021-8 #### [facility] CLIA [id number] [address] [place] [address] [place] Bilirubin [Mass/Vol] 0.3 mg/dL Normal 0.2-1.3 [facility] Comment on above: Order Comment: Speci men Type: BLOOD SPECIMEN Ordering Facility: [facility] Address: [address] [place] [address] Performed By: #### 5 7021-8 #### [facility] CLIA [id number] [address] [place] [address] [place] Calcium [Mass/Vol] 9.3 mg/dL Normal 8.5-10.2 [facility] Comment on above: Order Comment: Speci men Type: BLOOD SPECIMEN Ordering Facility: [facility] Address: [address] [place] [address] Performed By: #### 5 7021-8 #### [facility] CLIA [id number] [address] [place] [address] [place] Chloride [Moles/Vol] 108 mmol/L High 98-107 [facility] Comment on above: Order Comment: Speci men Type: BLOOD SPECIMEN Ordering Facility: [facility] Address: [address] [place] [address] Performed By: #### 5 7021-8 #### [facility] CLIA [id number] [address] [place] [address] [place] CO2 [Moles/Vol] 21 mmol/L Low 22-30 [facility] Comment on above: Order Comment: Speci men Type: BLOOD SPECIMEN Ordering Facility: [facility] Address: [address] [place] [address] Performed By: #### 5 7021-8 #### [facility] CLIA [id number] [address] [place] [address] [place] Creatinine [Mass/Vol] 0.72 mg/dL Normal 0.58-0.96 [facility] Comment on above: Order Comment: Speci men Type: BLOOD SPECIMEN Ordering Facility: [facility] Address: [address] [place] [address] Performed By: #### 5 7021-8 #### [facility] [id number] [address] [place] [address] [facility] Creatinine and Glomerular filtration rate.predicted panel (S/P/Bld) 97 mL/min/1.73m??? Normal >=60 [facility] Comment on above: Order Comment: Speci men Type: BLOOD SPECIMEN Ordering Facility: [facility] Address: [address] [place] [address] Result Comment: Luci mated Glomerular Filtration Rate (eGFR) is calculated using the 2020 CKD-EPI creatinine equation. This equation utilizes serum creatinine, sex, and age as parameters. The creatinine assay has traceable calibration to isotope dilution-mass spectrometry. Refer to KDIGO guidelines for clinical interpretation. In patients with unstable renal function, e.g. those with acute kidney injury, the eGFR may not accurately reflect actual GFR. Performed By: #### 5 7021-8 #### [facility] [id number] [address] [place] [address] [place] Glucose [Mass/Vol] 95 mg/dL Normal 74-99 [facility] Comment on above: Order Comment: Speci men Type: BLOOD SPECIMEN Ordering Facility: [facility] Address: [address] [place], [place] [address] Result Comment: The [place] Diabetes Association (ADA) provides guidance for cutoff values for fasting glucose and random glucose. The ADA defines fasting as no caloric intake for at least 8 hours. Fasting plasma glucose results between 100 to 125 mg/dL indicate increased risk for diabetes (prediabetes). Fasting plasma glucose results greater than or equal to 126 mg/dL meet the criteria for diagnosis of diabetes. In the absence of unequivocal hyperglycemia, results should be confirmed by repeat testing. In a patient with classic symptoms of hyperglycemia or hyperglycemic crisis, random plasma glucose results greater than or equal to 200 mg/dL meet the criteria for diagnosis of diabetes. Reference: Standards of Medical Care in Diabetes 2016, [place] Diabetes Association. Diabetes Care. 2016.39(Suppl 1). Performed By: #### 5 7021-8 #### [facility] [id number] [address] [place] [address] [place] Potassium [Moles/Vol] 3.9 mmol/L Normal 3.7-5.1 [facility] Comment on above: Order Comment: Haydeei men Type: BLOOD SPECIMEN Ordering Facility: [facility] Address: [address] [place] [address] Performed By: #### 5 7021-8 #### [facility] [id number] [address] [place] [address] [place] Protein [Mass/Vol] 7.1 g/dL Normal 6.3-8.0 [facility] Comment on above: Order Comment: Haydeei men Type: BLOOD SPECIMEN Ordering Facility: [facility] Address: [address] [place], [place] [address] Performed By: #### 5 7021-8 #### [facility] CLIA [id number] [address] [place] [address] [place] Sodium [Moles/Vol] 137 mmol/L Normal 136-144 [facility] Comment on above: Order Comment: Speci men Type: BLOOD SPECIMEN Ordering Facility: [facility] Address: [address] [place] [address] Performed By: #### 5 7021-8 #### [facility] [id number] [address] [place] [address] [place] Urea nitrogen [Mass/Vol] 15 mg/dL Normal 7-21 [facility] Comment on above: Order Comment: Speci men Type: BLOOD SPECIMEN Ordering Facility: [facility] Address: [address] [place] [address] Performed By: #### 5 7021-8 #### [facility] [id number] [address] [place] [address] [place] HbA1c (Bld)on 08-16-2024 Average glucose Estimated from glycated hemoglobin (Bld) [Mass/Vol] 123 mg/dL Normal [facility] Comment on above: Order Comment: Speci men Type: BLOOD SPECIMEN Ordering Facility: [facility] Address: [address] [place] [address] Result Comment: eAG: (Estimated average glucose) is a calculated value from HgbA1c and is petroleum products sales representative of the average blood glucose level in the last 2-3 month period. Performed By: #### 5 7021-8 #### [facility] [id number] [address] [place] [address] [place] HbA1c (Bld) [Mass fraction] 5.9 % High 4.3-5.6 [facility] Comment on above: Order Comment: Speci men Type: BLOOD SPECIMEN Ordering Facility: [facility] Address: [address] [place] [address] Result Comment: [facility] Diabetes Association guidelines indicate that patients with HgbA1c in the range 5.7-6.4% are at increased risk for development of diabetes, and intervention by lifestyle modification may be beneficial. HgbA1c greater or equal to 6.5% is considered diagnostic of diabetes. Performed By: #### 5 7021-8 #### [facility] CLIA [id number] [address] [place] [address] [place] LIPID PANEL, NONFASTINGon Cholesterol [Mass/Vol] 200 mg/dL High <200 [facility] Comment on above: Order Comment: Alber lin Type: BLOOD SPECIMEN Ordering Facility: [facility] Address: [address] [place] [address] Result Comment: <200 mg/dL, Desirable 200-239 mg/dL, Borderline high >239 mg/dL, High Performed By: #### 5 7021-8 #### [facility] CLIA [id number] [address] [place] [address] [place] HDL CHOLESTEROL, NF 46 mg/dL Normal >39 [facility] Comment on above: Order Comment: Alber lin Type: BLOOD SPECIMEN Ordering Facility: [facility] Address: [address] [place] [address] Result Comment: 40-5 9 mg/dL, Acceptable >59 mg/dL, High: Negative risk factor for coronary heart disease <40 mg/dL, Low: Positive risk factor for coronary heart disease Performed By: #### 5 7021-8 #### [facility] CLIA [id number] [address] [place] [address] [place] LDL CHOLESTEROL, NF 132 mg/dL High <100 [facility] Comment on above: Order Comment: Alber lin Type: BLOOD SPECIMEN Ordering Facility: [facility] Address: [address] [place] [address] Result Comment: <100 mg/dL, Optimal 100-129 mg/dL, Near optimal/above optimal 130-159 mg/dL, Borderline high 160-189 mg/dL, High >189 mg/dL, Very high Secondary prevention optimal LDL Cholesterol levels are recommended to be < 70 mg/dL Performed By: #### 5 7021-8 #### [facility] CLIA [id number] [address] [place] [address] [place] LDL/HDL RATIO, NF 2.87 mg/dL High <2.54 [facility] Comment on above: Order Comment: Alber lin Type: BLOOD SPECIMEN Ordering Facility: [facility] Address: [address] [place] [address] Result Comment: Refe rence: 1. National Cholesterol Education Program ATP III Guideline At-A-Glance Quick Desk Reference: National Heart, Lung, and Blood [place]. National Institutes of Health. 2001: NIH Publication No. 01-3305. 2. An International Atherosclerosis Society position paper: global recommendations for the management of dyslipidemia: executive summary, Atherosclerosis. 2014: 232(2):410-413. Performed By: #### 5 7021-8 #### [facility] [id number] [address] [place] [address] [place] NON HDL CHOL, NF 154 mg/dL High <130 [facility] Comment on above: Order Comment: Alber lin Type: BLOOD SPECIMEN Ordering Facility: [facility] Address: [address] [place] [address] Result Comment: <130 mg/dL, Optimal 130-159 mg/dL, Near optimal/above optimal 160-189 mg/dL, Borderline high 190-219 mg/dL, High >219 mg/dL, Very high Secondary prevention optimal non HDL Cholesterol levels are recommended to be <100 mg/dL Performed By: #### 5 7021-8 #### [facility] [id number] [address] [place] [address] [place] T CHOL/HDL RATIO NF 4.35 mg/dL Normal <5.10 [facility] Comment on above: Order Comment: Alber lin Type: BLOOD SPECIMEN Ordering Facility: [facility] Address: [address] [place] [address] Performed By: #### 5 7021-8 #### [facility] CLIA [id number] [address] [place] [address] [place] TRIGLYCERIDES, NF 108 mg/dL Normal <150 [facility] Comment on above: Order Comment: Speci men Type: BLOOD SPECIMEN Ordering Facility: [facility] Address: [address] [place], [place] [address] Result Comment: <150 mg/dL, Normal 150-199 mg/dL, Borderline high 200-499 mg/dL, High >499 mg/dL, Very high Performed By: #### 5 7021-8 #### [facility] [id number] [address] [place] [address] [place] VLDL CHOLESTEROL, NF 22 mg/dL Normal <30 [facility] Comment on above: Order Comment: Speci men Type: BLOOD SPECIMEN Ordering Facility: [facility] Address: [address] [place] [id number] Performed By: #### 5 7021-8 #### [facility] CLIA [id number] [address] [place] [address] [place] BEATRICE SCREENING W TOMOon 08-16 BEATRICE SCREENING W WALTER * * *Final Report* * * DATE OF EXAM: Aug 16 2024 2:51PM [facility] 0582 - BEATRICE SCREENING W WALTER / PROCEDURE REASON: Encounter for screening mammogram for breast cancer * * * * Physician Interpretation * * * * RESULT: [facility] [address] [place] [address] #[id number] - BEATRICE SCREENING W WALTER HISTORY: 59 year-old patient seen for screening. Patient is asymptomatic in both breasts. Patient states no personal history of breast cancer. COMPARISON STUDIES: The present examination has been compared to prior imaging studies dated 08/06/2020 (mammogram) and 08/07/2021 (mammogram). MAMMOGRAM TECHNIQUE: The study was acquired using full field digital technology and interpreted from soft copy. Digital Breast Tomosynthesis (DBT) images were obtained and used to assist in the interpretation of this examination. MAMMOGRAM FINDINGS: There are scattered areas of fibroglandular density. No suspicious masses, calcifications or other abnormalities are seen in either breast. There are no significant interval changes. IMPRESSION: There is no mammographic evidence of malignancy in either breast. Routine screening mammogram is recommended. Annual mammogram will be due in 1 year. BI-RADS Category 1: Negative RISK: Based on the Tyrer-Cuzick (TC) risk assessment model, this patient has a 7.3% lifetime risk of developing breast cancer, meaning they are at average risk for developing breast cancer. However, this is only an estimate based on available history provided on the patient's questionnaire. We encourage all patients to talk with their providers about these results, further recommendations for managing breast health, and appropriate supplemental screening options if the patient has dense breast tissue. Interpreting Radiologist: Blanca Vance M.D. Electronically signed on: 08/17/2024 Wood Engraver: ARISTEO Transcribe Date/Time: Aug 16 2024 2:29P Dictated by: BLANCA VANCE MD This examination was interpreted and the report reviewed and electronically signed by: BLANCA VANCE MD on Aug 17 2024 8:21AM EST [id number] Normal [facility] TSH SerPl-aCncon 08-16-2024 TSH Qn 1.630 m[IU]/L Normal 0.270-4.200 [facility] Comment on above: Order Comment: Speci men Type: BLOOD SPECIMEN Order[facility] Facility[facility] Address: [address] [place] [address] Performed By: #### 5 7021-8 #### [facility] [id number] [address] [place] [address] [place] Gastroenterology Visit Repor ton 06-28-2024 Gastroenterology Visit Report [facility] [address] [place] [id number] OFFICE VISIT Date of Service: 06/28/24 MR#: [id number] Acct: [id number] Name: ELISABETH HENDRICKS #: [id number] : 1965 Provider: HAYDEN Rain Age/Sex: 59/F [place] [facility] Status: Signed Intake Vital Signs 11/02/23 11:46 Height 5 ft 5 in Intake Visit Reasons: Hernia Chief Complaint: heartburn Investigative Research Specialist Required: No Is patient in pain?: No Allergies avocado Allergy (Mild, Verified 06/28/24 07:52) Other Medications ???Medication ???Instructions ???Recorded ???Confirmed ???Type loratadine 10 mg tablet (Claritin) 10 mg PO QDAY 06/28/24 History pantoprazole 40 mg tablet,delayed 40 mg PO QDAY #60 tabs 06/28/24 0 06/28/24 Rx release ropinirole 2 mg tablet 2 mg PO QDAY 06/28/24 History topiramate 50 mg tablet 50 mg PO QDAY 06/28/24 History Have you fallen in the past year?: No Nurse's Note: 06/28/24 OV- New pt needs EGD d/t bloating, belching, reflux issues but no PPI. Pt states she has a mid abd hernia she wants evaluated. Pt is past due for her 3 yr c-scope for hx of polyps. Last done approx 2019 at [facility]. Pt has no lower complaints. [facility] Medical History History of colon polyps GERD (gastroesophageal reflux disease) Bloating Headaches due to old head injury Back pain Diverticulitis Surgical History S/P tubal ligation S/P knee surgery S/P shoulder surgery S/P laparoscopic cholecystectomy Family History Brother Cancer kidney Mother Cancer pancreatic Father Heart disease Grandmother Thyroid disorder Social History Smoking Status: Former smoker alcohol intake: current details: occasional HPI HPI Chief Complaint: heartburn Details: ELISABETH HENDRICKS, is a 59 F who presents to the office today for establishment with [facility]. Over the past year pt has been struggling with heartburn, bloating and and vomiting. Pt heartburn symptoms are worse in the evening and it often takes her hours to fall asleep. She will take TUMs on occasion but is not on daily PPI. SHe vomits in the morning on occasion but does not ever feel nauseous prior. When she eats she feels bloated and like the food is not digesting. She eats a healthy diet as she is trying to lose weight. She only drinks water, no carbonated or sugary drinks. It does not matter what she eats she will get these symptoms. She has never had an EGD. Last colonoscopy was a about years ago with hx of polyps. She is s/p cholecystectomy in 2007. Since then she has had soft stools up to 9x per day. This does not bother her because its not liquid. ROS Const Constitutional: No anorexia, body ache, chills, excessive sweating, fatigue, fever(s), frequent falls, headache(s), decreased energy, malaise, night sweats, weakness, weight change, sleep problems, abnormal sleep pattern, change in appetite or other Eyes Eyes: No blurry vision, change in vision, double vision, irritation, discharge, vision loss, dry eyes, bulging eyes, floaters, visual disturbances, eye pain, Light sensitivity, spots in vision, tunnel vision or other ENT ENT: No abnormal hearing, ear or mastoid pain, ear discharge, ear pressure, hearing loss, tinnitus, dizziness/vertigo, balance problems, nosebleed/epistaxis, nasal congestion, nasal obstruction, nose pain, sinus pressure, sinus pain, nasal discharge, post nasal drip, headache(s), facial pain, dental pain, dry mouth, bad breath, hoarseness, lip swelling, mouth lesions, mouth pain, neck pain, sore throat, tongue swelling, throat swelling or other Cardio Cardiology: No excessive sweating Gastro GI: Positive for belching, bloating, heartburn and nausea/dyspepsia Musc Musculoskeletal: Positive for numbness and tingling; No neck pain Skin Skin: Positive for dry skin and itchy eyes Neuro Neurology: Positive for numbness and tingling; No abnormal hearing, weakness, frequent falls, headache(s) or visual disturbances Psych Psychiatric: No abnormal sleep pattern and No change in appetite Endo Endocrine: No excessive sweating, fatigue, weight change or other Aller/Imm Allergy/Immunologic: Positive for itchy eyes; No lip swelling, throat swelling or tongue swelling Exam Const General: cooperative and comfortable Nutritional Appearance: average body habitus and well nourished HENMT Head: normal to inspection Ears: hearing grossly normal bilaterally Nose: external nose normal Face and sinus: normal facial exam Eyes General: appearance normal, both eyes and all related structures Neck Neck: normal visual inspection Chest Chest palpation inspection: normal inspection of t (more content not included)... Normal [facility] HbA1c (Bld)on 05-12-2024 Average glucose Estimated from glycated hemoglobin (Bld) [Mass/Vol] 123 mg/dL Normal [facility] Comment on above: Order Comment: Alber lin Type: BLOOD SPECIMEN Order[facility] Address: [address] [place] [address] Result Comment: eAG: (Estimated average glucose) is a calculated value from HgbA1c and is petroleum products sales representative of the average blood glucose level in the last 2-3 month period. Performed By: #### 5 5454-3 #### [facility] CLIA [id number] [address] [place] [address] [place] HbA1c (Bld) [Mass fraction] 5.9 % High 4.3-5.6 [facility] Comment on above: Order Comment: Alber lin Type: BLOOD SPECIMEN Ordering Facility: [facility] Address: [address] [place] [address] Result Comment: [place] Diabetes Association guidelines indicate that patients with HgbA1c in the range 5.7-6.4% are at increased risk for development of diabetes, and intervention by lifestyle modification may be beneficial. HgbA1c greater or equal to 6.5% is considered diagnostic of diabetes. 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 Chief Complaint: work physical Allergies avocado Allergy (Mild, Verified 11/18/22 12:38) Other Office Procedures [facility] Billing Sheet Testing Breath Alcohol in [facility]: Yes Pre-Employment Drug Screen: Yes 11/07/23726 Date Pranay BLAKE Cosigner Signature: Date (if applicable) CC: Normal [facility] Office Visit Report [facility] [address] [place] [address] OFFICE VISIT Date of Service: 11/02/23 MR#: [id number] Acct: [id number] Patient: ELISABETH HENDRICKS Rep #: [id number] : 1965 Provider: HAYDEN Cai Age/Sex: 58/F Location: [facility] Status: Signed Intake Vital Signs 11/18/22 12:32 11/02/23 11:46 Height 1.65 m 1.65 m Weight: 99.875 kg BMI 36.6 BP 146/99 H Respiration 22 H Pulse 105 H Temp 98.3 F Temp Source Temporal Pulse Oximetry (%) 97 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 11/02/23 1257 Date Pranay BLAKE Cosigner Signature: Date (if applicable) CC: Normal [facility] Comprehensive metabolic 2000 panelon 08-16-2023 Albumin [Mass/Vol] 4.3 g/dL 3.9 - 4.9 g/dL [facility] ALP [Catalytic activity/Vol] 119 U/L 34 - 123 U/L [facility] ALT [Catalytic activity/Vol] 15 U/L 7 - 38 U/L [facility] Anion gap [Moles/Vol] 13 mmol/L 9 - 18 mmol/L [facility] AST [Catalytic activity/Vol] 23 U/L 13 - 35 U/L [facility] Bilirubin [Mass/Vol] 0.3 mg/dL 0.2 - 1 .3 mg/dL [facility] Calcium [Mass/Vol] 9.6 mg/dL 8.5 - 10. 2 mg/dL [facility] Chloride [Moles/Vol] 105 mmol/L 97 - 10 5 mmol/L [facility] CO2 [Moles/Vol] 23 mmol/L 22 - 30 mmol/L [facility] Creatinine [Mass/Vol] 0.66 mg/dL 0.58 - 0.96 mg/dL [facility] Estimated Glomerular Filtration Rate 102 mL/min/1.73m >=60 mL/min/1.73m [facility] Glucose [Mass/Vol] 90 mg/dL 74 - 99 mg/dL [facility] Potassium [Moles/Vol] 4.1 mmol/L 3.7 - 5.1 mmol/L [facility] Protein [Mass/Vol] 7.1 g/dL 6.3 - 8.0 g/dL [facility] Sodium [Moles/Vol] 141 mmol/L 136 - 144 mmol/L [facility] Urea nitrogen [Mass/Vol] 10 mg/dL 7 - 21 mg/dL [facility] LIPID PANEL, NONFASTINGon Cholesterol [Mass/Vol] 200 mg/dL High <200 mg/dL [facility] HDL Cholesterol, Nonfasting 48 mg/dL >39 mg/dL [facility] LDL Cholesterol, Nonfasting 136 mg/dL High <100 mg/dL [facility] LDL/HDL Ratio, Nonfasting 2.83 mg/dL High <2.54 mg/dL [facility] Non HDL Cholesterol, Nonfasting 152 mg/dL High <130 mg/dL [facility] Total Chol/HDL Ratio, Nonfasting 4.17 mg/dL <5.10 mg/dL [facility] Triglycerides, Nonfasting 80 mg/dL <150 mg/dL [facility] VLDL Cholesterol, Nonfasting 16 mg/dL <30 mg/dL [facility] THYROID STIMULATING HORMONEo n 08-16-2023 TSH Qn 1.330 m[IU]/L 0.270 - 4.200 mIU/L [facility] Absolute lymphocyte countOrd ered By: Nannettecyndy Meza on 11-18-2022 Lymphocytes Auto (Unsp spec) [#/Vol] 2.40 10*3/uL 0.83-4.51 [facility] Basophil percentageOrdered B y: Nannette Susana on 11-18-2022 Basophils/100 WBC (Bld) 0.8 % 0-1 [facility] Bilirubin [Mass/Vol] 0.60 mg/dL 0.20-1.00 [facility] Comment on above: For patients on eltr ombopag therapy, use of Dimension [place] TBIL is not recommended. Chloride [Moles/Vol] 107 mmol/L 98-107 [facility] Eosinophils/100 WBC (Bld) 1.3 % 0-5 [facility] Glucose [Mass/Vol] 92 mg/dL 74-106 [facility] Neutrophils (Bld) [#/Vol] 7.4 10*3/uL 2.0-7.7 [facility] Neutrophils/100 WBC (Bld) 67.8 % 47-70 [facility] Potassium [Moles/Vol] 3.3 mmol/L 3.5-5.1 [facility] Protein [Mass/Vol] 7.4 g/dL 6.4-8.2 [facility] Sodium [Moles/Vol] 139 mmol/L 136-145 [facility] WBC (Bld) [#/Vol] 10.9 10*3/uL 4.4-11.0 [facility] Blood erythrocytes count (nu mber/volume)Ordered By: Nannette Meza on 11-18-2022 RBC (Bld) [#/Vol] 5.28 10*6/uL 4.2-5.4 [facility] Blood hemoglobin measurement (mass/volume)Ordered By: Nannette Meza on 11-18-2022 Hemoglobin (Bld) [Mass/Vol] 13.8 g/dL 12.0-15.0 [facility] Blood lymphocytes/100 leukoc ytesOrdered By: Nannette Meza on 11-18-2022 Lymphocytes/100 WBC (Bld) 22.0 % 19-41 [facility] Blood monocytes/100 leukocyt esOrdered By: Nannette Meza on 11-18-2022 Monocytes/100 WBC (Bld) 7.6 % 0-10 [facility] Blood platelet mean volumeOr dered By: Nannette Meza on 11-18-2022 Platelet mean volume (Bld) [Entitic vol] 11.1 fL 6.2-12.0 [facility] Determination of erythrocyte mean corpuscular volume (MCV)Ordered By: Nannette Meza on 11-18-2022 MCV (RBC) [Entitic vol] 82.4 fL 81-99 [facility] Hematocrit Auto (Bld) [Volum e fraction]Ordered By: Nannette Meza on 11-18-2022 Hematocrit (Bld) [Volume fraction] 43.5 % 37-47 [facility] Laboratory - Chemistry and C hemistry - challengeOrdered By: Nannette Meza on 11-18-2022 ALP [Catalytic activity/Vol] 111 U/L 45-117 [facility] ALT [Catalytic activity/Vol] 54 U/L 13-56 [facility] CO2 [Moles/Vol] 23.0 mmol/L 21.0-32.0 [facility] Globulin (S) [Mass/Vol] 3.8 g/dL 2.2-4.2 [facility] Lipase [Catalytic activity/Vol] 23 U/L 13-75 [facility] Comment on above: Please note:LIPASE r evised reference range effective 22. New Lipase methodology. Expected to produce lower values than the previous assay method. NEW Reference Range: 13 - 75 U/L Urea nitrogen/Creatinine [Mass ratio] 10.1 mg/mg 10-20 [facility] Laboratory - Hematology and Cell countsOrdered By: Nannette Meza on 11-18-2022 Erythrocyte distribution width (RBC) [Entitic vol] 42.3 fL 35.1-43.9 [facility] Erythrocyte distribution width (RBC) [Ratio] 14.3 % 11.6-14.6 [facility] Immature granulocytes/100 WBC (Bld) 0.500 % 0.0-0.9 [facility] Comment on above: IG% - Immature Granu locytes (promyelocytes, myelocytes and metamyelocytes) > 1% indicates that a LEFT SHIFT is Present. MCH (RBC) [Entitic mass] 26.1 pg 27.0-32.0 [facility] Nucleated RBC/100 WBC (Bld) [Ratio] 0 % 0-5 [facility] MCHC Auto (RBC) [Mass/Vol]Or dered By: Nannette Meza on 11-18-2022 MCHC (RBC) [Mass/Vol] 31.7 g/dL 32-36 [facility] No Panel InformationOrdered By: Nannette Meza on 11-18-2022 Estimated Creatinine Clearance Calc 71.55 ml/min [facility] Estimated GFR (MDRD) Amer 96 mL/min >60 [facility] Comment on above: GFR Calc Estimated GFR (MDRD) Non-Af Amer 80 mL/min >60 [facility] Comment on above: Non- GFR Calc Platelets bldOrdered By: Genna Meza on 11-18-2022 Platelets (Bld) [#/Vol] 298 10*3/uL 150-450 [facility] Serum or plasma albumin nishant urement (mass/volume)Ordered By: Nannette Meza on 11-18-2022 Albumin [Mass/Vol] 3.6 g/dL 3.2-5.0 [facility] Serum or plasma albumin/glob ulin mass ratioOrdered By: Nannette Meza on 11-18-2022 Albumin/Globulin [Mass ratio] 0.9 {ratio} 0.9-2.4 [facility] Serum or plasma calcium nishant urement (mass/volume)Ordered By: Nannette Meza on 11-18-2022 Calcium [Mass/Vol] 8.8 mg/dL 8.5-10.1 [facility] Serum or plasma creatinine m easurement (mass/volume)Ordered By: Nannette Meza on 11-18-2022 Creatinine [Mass/Vol] 0.79 mg/dL 0.55-1.02 [facility] Comment on above: The validity of the calculated GFR & GFRAA in patients over 70 years has not been determined. Clinical correlation is essential. Serum or plasma urea nitroge n measurement (mass/volume)Ordered By: Nannette Meza on 11-18-2022 Urea nitrogen [Mass/Vol] 8 mg/dL 7-18 [facility] Thin prep Papanicolaou smear with manual screeningOrdered By: Nannette Meza on 11-18-2022 Thin prep Papanicolaou smear with manual screening 27 U/L 15-37 [facility] Thin prep Papanicolaou smear with manual screening 9 5-15 [facility] CBC W Auto Differential pane l (Bld)on 11-12-2022 Basophils (Bld) [#/Vol] 0.09 10*3/uL <0.11 k/uL [facility] Basophils/100 WBC (Bld) 1.0 % [facility] Differential cell count method Nom (Bld) Auto [facility] Eosinophils (Bld) [#/Vol] 0.14 10*3/uL <0.46 k/uL [facility] Eosinophils/100 WBC (Bld) 1.5 % [facility] Erythrocyte distribution width (RBC) [Ratio] 14.0 % 11.5 - 15.0 % [facility] Hematocrit (Bld) [Volume fraction] 43.5 % 36.0 - 46.0 % [facility] Hemoglobin (Bld) [Mass/Vol] 14.5 g/dL 11.5 - 15.5 g/dL [facility] Immature granulocytes (Bld) [#/Vol] 0.03 10*3/uL <0.10 k/uL [facility] Immature granulocytes/100 WBC (Bld) 0.3 % [facility] Lymphocytes (Bld) [#/Vol] 2.51 10*3/uL 1.00 - 4.00 k/uL [facility] Lymphocytes/100 WBC (Bld) 27.4 % [facility] MCH (RBC) [Entitic mass] 26.7 pg 26.0 - 34.0 pg [facility] MCHC (RBC) [Mass/Vol] 33.3 g/dL 30.5 - 36.0 g/dL [facility] MCV (RBC) [Entitic vol] 80.1 fL 80.0 - 100.0 fL [facility] Monocytes (Bld) [#/Vol] 0.80 10*3/uL <0.87 k/uL [facility] Monocytes/100 WBC (Bld) 8.7 % [facility] Neutrophils (Bld) [#/Vol] 5.60 10*3/uL 1.45 - 7.50 k/uL [facility] Neutrophils/100 WBC (Bld) 61.1 % [facility] Nucleated RBC (Bld) [#/Vol] <0.01 k/uL [facility] Nucleated RBC/100 WBC (Bld) [Ratio] 0.0 /100 WBC [facility] Platelet mean volume (Bld) [Entitic vol] 11.3 fL 9.0 - 12.7 fL [facility] Platelets (Bld) [#/Vol] 326 10*3/uL 150 - 400 k/uL [facility] RBC (Bld) [#/Vol] 5.43 10*6/uL High 3.90 - 5.2 0 m/uL [facility] WBC (Bld) [#/Vol] 9.17 10*3/uL 3.70 - 11. 00 k/uL [facility] ESR Westergren method (Bld) [Velocity]on 11-12-2022 ESR (Bld) [Velocity] 12 mm/h 0 - 20 mm/hr [facility] .Auto Diffon 03-03-2022 Basophil, Absolute 0.1 10 3/mcL Normal 0.0-0.2 [facility] ([place]) Comment on above: Performed By: #### G , BMP #### Shanti [address] [address] Basophils/100 WBC (Bld) 0.7 % Normal 0.0-2.5 [facility] ([place]) Comment on above: Performed By: #### G FR, BMP #### [address] [address] Eosinophil, Absolute 0.4 10 3/mcL Normal 0.0-0.4 [facility] ([place]) Comment on above: Performed By: #### G FR, BMP #### [address] [address] Eosinophils/100 WBC (Bld) 3.7 % Normal 0.0-7.0 [facility] ([place]) Comment on above: Performed By: #### Tam FR, BMP #### [address] [address] Lymphocyte, Absolute 2.4 10 3/mcL Normal 0.8-3.9 [facility] ([place]) Comment on above: Performed By: #### Tam FR, BMP #### [address] [address] Lymphocytes/100 WBC (Bld) 23.3 % Normal 10.0-50.0 [facility] ([place]) Comment on above: Performed By: #### Tam FR, BMP #### [address] [address] Monocyte, Absolute 0.8 10 3/mcL Normal 0.2-1.0 [facility] ([place]) Comment on above: Performed By: #### G FR, BMP #### [address] [address] Monocytes/100 WBC (Bld) 7.9 % Normal 1.7-13.0 [facility] ([place]) Comment on above: Performed By: #### G FR, BMP #### [address] [address] Neutrophils/100 WBC (Bld) 64.4 % Normal 37.0-80.0 [facility] ([place]) Comment on above: Performed By: #### G FR, BMP #### [address] [address] .GFRon 03-03-2022 GFR 90 ml/min/1.73sqm Normal [facility] ([place]) Comment on above: Result Comment: GFR Population mean for , Non- Americans Ages 20-29 = 116 mL/min/1.73 sq.m. Ages 30-39 = 107 mL/min/1.73 sq.m. Ages 40-49 = 99 mL/min/1.73 sq.m. Ages 50-59 = 93 mL/min/1.73 sq.m. Ages 60-69 = 85 mL/min/1.73 sq.m. Ages 70+ = 75 mL/min/1.73 sq.m. Chronic Kidney Disease: Less than 60 mL/min/1.73 square meters End Stage Renal Disease: Less than 15 mL/min/1.73 square meters Performed By: #### G , BMP #### [address] [address] GFR Non- 74 ml/min/1.73sqm Normal [facility] ([place]) Comment on above: Result Comment: GFR Population mean for , Non- Americans Ages 20-29 = 116 mL/min/1.73 sq.m. Ages 30-39 = 107 mL/min/1.73 sq.m. Ages 40-49 = 99 mL/min/1.73 sq.m. Ages 50-59 = 93 mL/min/1.73 sq.m. Ages 60-69 = 85 mL/min/1.73 sq.m. Ages 70+ = 75 mL/min/1.73 sq.m. Chronic Kidney Disease: Less than 60 mL/min/1.73 square meters End Stage Renal Disease: Less than 15 mL/min/1.73 square meters Performed By: #### G , BMP #### [address] [address] .NEUABSon 03-03-2022 Neutrophil, Absolute 6.7 10 3/mcL High 2.9-6.2 [facility] ([place]) Comment on above: Performed By: #### G , BMP #### [address] [address] BMPon 03-03-2022 BUN/Creatinine Ratio 19 ratio Normal 7-27 [facility] ([place]) Comment on above: Performed By: #### Tam MALDONADO, BMP #### [address] [address] Calcium [Mass/Vol] 8.9 mg/dL Normal 8.4-10.2 [facility] Comment on above: Performed By: #### Tam MALDONADO, BMP #### [address] [address] Chloride [Moles/Vol] 106 mmol/L Normal 98-107 [facility] ([place]) Comment on above: Performed By: #### Tam MALDONADO, BMP #### [address] [address] CO2 [Moles/Vol] 27 mmol/L Normal 22-29 [facility] ([place]) Comment on above: Performed By: #### Tam MALDONADO, BMP #### [address] [address] Creatinine [Mass/Vol] 0.80 mg/dL Normal 0.55-1.02 [facility] ([place]) Comment on above: Performed By: #### Tam MALDONADO, BMP #### [address] [address] Electrolyte Balance 10.0 mEq/L Normal 4.0-15.0 [facility] ([place]) Comment on above: Performed By: #### Tam MALDONADO, BMP #### [address] [address] Glucose [Mass/Vol] 93 mg/dL Normal 70-105 [facility] Comment on above: Performed By: #### Tam MALDONADO, BMP #### [address] [address] Potassium [Moles/Vol] 4.4 mmol/L Normal 3.5-5.1 [facility] ([place]) Comment on above: Performed By: #### Tam MALDONADO, BMP #### [address] [address] Sodium [Moles/Vol] 143 mmol/L Normal 136-145 [facility] Comment on above: Performed By: #### Tam MALDONADO, BMP #### [address] [address] Urea nitrogen [Mass/Vol] 15 mg/dL Normal 7-18 [facility] ([place]) Comment on above: Performed By: #### Tam MALDONADO, BMP #### [address] [address] CBCon 03-03-2022 Erythrocyte distribution width (RBC) [Ratio] 14.3 % Normal 11.5-14.5 [facility] ([place]) Comment on above: Performed By: #### Tam MALDONADO, BMP #### [address] [address] Hematocrit (Bld) [Volume fraction] 38.8 % Normal 37.0-47.0 [facility] ([place]) Comment on above: Performed By: #### Tam MALDONADO, BMP #### [address] [address] Hgb 12.8 G/dL Normal 12.0-16.0 [facility] ([place]) Comment on above: Performed By: #### Tam MALDONADO, BMP #### [address] [address] MCH (RBC) [Entitic mass] 27.3 pg Normal 27.0-31.2 [facility] ([place]) Comment on above: Performed By: #### Tam MALDONADO, BMP #### [address] [address] MCHC 33.1 G/dL Normal 33.0-37.0 [facility] ([place]) Comment on above: Performed By: #### Tam MALDONADO, BMP #### [address] [address] MCV (RBC) [Entitic vol] 82.4 fL Normal 80.0-94.0 [facility] ([place]) Comment on above: Performed By: #### Tam MALDONADO, BMP #### [address] [address] Platelet 305 10 3/mcL Normal 130-400 [facility] ([place]) Comment on above: Performed By: #### G , BMP #### [address] [address] Platelet mean volume (Bld) [Entitic vol] 8.3 fL Normal 7.4-10.4 [facility] ([place]) Comment on above: Performed By: #### Tam MALDONADO, BMP #### [address] [address] RBC 4.70 10 6/mcL Normal 4.20-5.40 [facility] ([place]) Comment on above: Performed By: #### G , BMP #### [address] [address] WBC 10.5 10 3/mcL Normal 4.6-10.8 [facility] ([place]) Comment on above: Performed By: #### Tam MALDONADO, BMP #### [address] [address] LABORATORYOrdered By: Shante Martinez on 03-03-2022 Basophil, Absolute 0.1 103/mcL Invalid Interpretation Code 0.0 - 0.2 10^3/mcL AO Workflow SS Basophils/100 WBC (Bld) 0.7 % Invalid Interpretation Code 0.0 - 2.5 % AO Workflow SS Eosinophil, Absolute 0.4 103/mcL Invalid Interpretation Code 0.0 - 0.4 10^3/mcL AO Workflow SS Eosinophils/100 WBC (Bld) 3.7 % Invalid Interpretation Code 0.0 - 7.0 % AO Workflow SS Erythrocyte distribution width (RBC) [Ratio] 14.3 % Invalid Interpretation Code 11.5 - 14.5 % AO Workflow SS Hematocrit (Bld) [Volume fraction] 38.8 % Invalid Interpretation Code 37.0 - 47.0 % AO Workflow SS Hemoglobin (Bld) [Mass/Vol] 12.8 G/dL Invalid Interpretation Code 12.0 - 16.0 G/dL AO Workflow SS Lymphocyte, Absolute 2.4 103/mcL Invalid Interpretation Code 0.8 - 3.9 10^3/mcL AO Workflow SS Lymphocytes/100 WBC (Bld) 23.3 % Invalid Interpretation Code 10.0 - 50.0 % AO Workflow SS MCH (RBC) [Entitic mass] 27.3 pg Invalid Interpretation Code 27.0 - 31.2 pg AO Workflow SS MCHC 33.1 G/dL Invalid Interpretation Code 33.0 - 37.0 G/dL AO Workflow SS MCV (RBC) [Entitic vol] 82.4 fL Invalid Interpretation Code 80.0 - 94.0 fL AO Workflow SS Monocyte, Absolute 0.8 103/mcL Invalid Interpretation Code 0.2 - 1.0 10^3/mcL AO Workflow SS Monocytes/100 WBC (Bld) 7.9 % Invalid Interpretation Code 1.7 - 13.0 % AO Workflow SS Neutrophil, Absolute 6.7 103/mcL Invalid Interpretation Code 2.9 - 6.2 10^3/mcL AO Workflow SS Neutrophils/100 WBC (Bld) 64.4 % Invalid Interpretation Code 37.0 - 80.0 % AO Workflow SS Platelet mean volume (Bld) [Entitic vol] 8.3 fL Invalid Interpretation Code 7.4 - 10.4 fL AO Workflow SS Platelets (Bld) [#/Vol] 305 103/mcL Invalid Interpretation Code 130 - 400 10^3/mcL AO Workflow SS RBC (Bld) [#/Vol] 4.70 106/mcL Invalid Interpretation Code 4.20 - 5.40 10^6/mcL AO Workflow SS WBC (Bld) [#/Vol] 10.5 103/mcL Invalid Interpretation Code 4.6 - 10.8 10^3/mcL AO Workflow SS LABORATORYOrdered By: Maria Elena Marrufo on 03-03-2022 Calcium [Mass/Vol] 8.9 mg/dL Invalid Interpretation Code 8.4 - 10.2 mg/dL AO ADM SS Chloride [Moles/Vol] 106 mmol/L Invalid Interpretation Code 98 - 107 mmol/L AO ADM SS CO2 [Moles/Vol] 27 mmol/L Invalid Interpretation Code 22 - 29 mmol/L AO ADM SS Creatinine [Mass/Vol] 0.80 mg/dL Invalid Interpretation Code 0.55 - 1.02 mg/dL AO ADM SS Electrolyte Balance 10.0 mEq/L Invalid Interpretation Code 4.0 - 15.0 mEq/L AO ADM SS Glucose [Mass/Vol] 93 mg/dL Invalid Interpretation Code 70 - 105 mg/dL AO ADM SS Potassium [Moles/Vol] 4.4 mmol/L Invalid Interpretation Code 3.5 - 5.1 mmol/L AO ADM SS Sodium [Moles/Vol] 143 mmol/L Invalid Interpretation Code 136 - 145 mmol/L AO ADM SS Urea nitrogen [Mass/Vol] 15 mg/dL Invalid Interpretation Code 7 - 18 mg/dL AO ADM SS Urea nitrogen/Creatinine [Mass ratio] 19 ratio Invalid Interpretation Code 7 - 27 ratio AO ADM SS LABORATORYOrdered By: SYSTEM SYSTEM on 03-03-2022 GFR 90 ml/min/1.73sqm Invalid Interpretation Code AO Chemistry S GFR Non- 74 ml/min/1.73sqm Invalid Interpretation Code AO Chemistry S MRI KNEE W/O CONTRAST LEFTon 12-18-2021 MRI KNEE W/O CONTRAST LEFT ORIGINAL EXAMINATION: MRI OF THE LEFT KNEE WITHOUT CONTRAST12/18/2021 3:33 pm TECHNIQUE: Multiplanar multisequence MRI of the left knee was performed without the administration of intravenous contrast. COMPARISON: None available. HISTORY: ORDERING SYSTEM PROVIDED HISTORY: Reason for Exam: Unilateral primary osteoarthritis, left knee. Pain of left knee. FINDINGS: MUSCLES, TENDONS, AND LIGAMENTS: The anterior cruciate ligament is intact. The posterior cruciate ligament is intact. A thickened morphology with intermediate intrasubstance signal and periligamentous edema is present of the medial collateral ligament. The lateral collateral ligament complex is intact. The popliteus and biceps femoris tendons, iliotibial band, and extensor mechanism are intact. Suspect magic angle artifact of the patellar tendon. MENISCI: There is a blunted morphology involving the inner free edge of the body and posterior horn segments of medial meniscus with small displaced meniscal flap noted in to the inferior aspect of the medial femorotibial recess, best seen on coronal image 14/33. The lateral meniscus is intact. OSSEOUS STRUCTURES AND JOINTS: No fracture or dislocation is evident. No visualized marrow replacing osseous lesions. Small bone island of posterior aspect of medial femoral condyle. Low-grade articular cartilage thinning is present of the medial femorotibial compartment with intermediate grade thinning focally at the posterior weight-bearing medial femoral condyle. Low-grade articular cartilage thinning is present of the lateral femorotibial compartment. Low-grade articular cartilage thinning and fissuring is present the median patellar ridge extending to the adjacent central aspects medial and lateral patellar facets. Low-grade articular cartilage thinning is also present of the inferior aspect of medial femoral trochlea. The articular cartilage of the femoral trochlea is otherwise unremarkable. There is lateral subluxation of patella. Normal morphology of the trochlear groove and normal tibial tuberosity-trochlear groove distance. Trace volume effusion. SOFT TISSUES: Small volume Mclean's cyst with element of partial rupture. Fluid tracks along the pes anserine tendon insertion. IMPRESSION: 1. Flap tear of medial meniscal body segment with displaced fragment into the inferior aspect of medial femorotibial recess. Inner free edge blunting also of the body and posterior horn segments of medial meniscus are compatible with inner free edge radial tearing. 2. Low-grade sprain of medial collateral ligament. 3. Tricompartmental osteoarthrosis, most pronounced of the medial femorotibial compartment. Trace volume effusion. 4. Small volume Mclean's cyst with element of partial rupture. 5. Low-grade sprain of medial collateral ligament. Interpreted by: Rolf Moore DO Preliminary Report By: Rolf Moore DO Electronically signed By Rolf Moore DO Dictated Date: 12/18/2021 3:40:32 PM Prelim Date: 12/18/2021 3:59:30 PM Sign Date: 12/18/2021 3:59:30 PM Ordering Provider: TYRA REYES [facility] ([place]) Vital Signs Date Time Vital Sign Value Performing Clinician Facility 09-03-2024 07:30-0400 Body temperature 96.8 [degF] Mady BLAKE Work Phone: [facility] 09-03-2024 07:30-0400 Diastolic blood pressure 83 mm[Hg] Mady BLAKE Work Phone: [facility] 09-03-2024 07:30-0400 Heart rate 63 /min Mady BLAKE Work Phone: [facility] 09-03-2024 07:30-0400 Respiratory rate 14 /min Mady BLAKE Work Phone: [facility] 09-03-2024 07:30-0400 SaO2% (BldA) [Mass fraction] 96 % Mady BLAKE Work Phone: [facility] 09-03-2024 07:30-0400 Systolic blood pressure 109 mm[Hg] Mady Covarrubias PA Work Phone: [facility] 09-03-2024 06:03-0400 Body height 165.1 cm Mady Covarrubias PA Work Phone: [facility] 09-03-2024 06:03-0400 Body mass index (BMI) [Ratio] 38.7 kg/m2 Mady Covarrubias PA Work Phone: [facility] 09-03-2024 06:03-0400 Body weight 105.5 kg Mady Covarrubias PA Work Phone: [facility] 08-16-2024 13:14-0400 Body height 161 cm Mady Covarrubias PA-C Work Phone: [facility] 08-16-2024 13:14-0400 Body mass index (BMI) [Ratio] 41.47 kg/m2 Mady Covarrubias PA-C Work Phone: [facility] 08-16-2024 13:14-0400 Body temperature 97.81 [degF] Mady Covarrubias PA-C Work Phone: [facility] 08-16-2024 13:14-0400 Body weight 107.5 kg Mady Covarrubias PA-C Work Phone: [facility] 08-16-2024 13:14-0400 Diastolic blood pressure 88 mm[Hg] Mady Covarrubias PA-C Work Phone: [facility] 08-16-2024 13:14-0400 Heart rate 84 /min Mady Covarrubias PA-C Work Phone: [facility] 08-16-2024 13:14-0400 Respiratory rate 18 /min Mady Covarrubias PA-C Work Phone: [facility] 08-16-2024 13:14-0400 SaO2% (BldA) [Mass fraction] 99 % Mady Covarrubias PA-C Work Phone: [facility] 08-16-2024 13:14-0400 Systolic blood pressure 120 mm[Hg] Mady Covarrubias PA-C Work Phone: [facility] 08-16-2023 13:22-0400 Diastolic blood pressure 77 mm[Hg] Mady Covarrubias PA-C Work Phone: [facility] 08-16-2023 13:22-0400 Systolic blood pressure 115 mm[Hg] Mady Covarrubias PA-C Work Phone: [facility] 08-16-2023 13:08-0400 Body height 163 cm Madyignacia Covarrubias PA-C Work Phone: [facility] 08-16-2023 13:08-0400 Body temperature 97.39 [degF] Mady Covarrubias PA-C Work Phone: [facility] 08-16-2023 13:08-0400 Body weight 98.43 kg Mady Covarrubias PA-C Work Phone: [facility] 08-16-2023 13:08-0400 Heart rate 78 /min Mady Covarrubias PA-C Work Phone: [facility] 08-16-2023 13:08-0400 Respiratory rate 16 /min Mady Covarrubias PA-C Work Phone: [facility] 08-16-2023 13:08-0400 SaO2% (BldA) [Mass fraction] 98 % Mady Covarrubias PA-C Work Phone: [facility] 11-18-2022 14:46-0400 Diastolic blood pressure 76 mm[Hg] [facility] 11-18-2022 14:46-0400 Heart rate 88 /min [facility] 11-18-2022 14:46-0400 Respiratory rate 16 /min [facility] 11-18-2022 14:46-0400 SaO2% (BldA) [Mass fraction] 97 % [facility] 11-18-2022 14:46-0400 Systolic blood pressure 126 mm[Hg] [facility] 11-18-2022 12:32-0400 Body height 165.1 cm [facility] 07-20-2023 12:32-0400 Body mass index (BMI) [Ratio] 36.6 kg/m2 [facility] 11-18-2022 12:32-0400 Body temperature 98.3 [degF] [facility] 11-18-2022 12:32-0400 Body weight 99.87 kg [facility] 11-12-2022 11:28-0400 Body temperature 98.91 [degF] Mady Covarrubias PA-C Work Phone: [facility] 11-12-2022 11:28-0400 Body weight 99.79 kg Mady Covarrubias PA-C Work Phone: [facility] 11-12-2022 11:28-0400 Diastolic blood pressure 86 mm[Hg] Mady Covarrubias PA-C Work Phone: [facility] 11-12-2022 11:28-0400 Heart rate 90 /min Mady Covarrubias PA-C Work Phone: [facility] 11-12-2022 11:28-0400 Respiratory rate 18 /min Mady Covarrubias PA-C Work Phone: [facility] 11-12-2022 11:28-0400 Systolic blood pressure 120 mm[Hg] Mady Covarrubias PA-C Work Phone: [facility] 08-13-2022 13:24-0400 Diastolic blood pressure 81 mm[Hg] Mady Covarrubias PA-C Work Phone: [facility] 08-13-2022 13:24-0400 Heart rate 90 /min Mady Covarrubias PA-C Work Phone: [facility] 08-13-2022 13:24-0400 Systolic blood pressure 133 mm[Hg] Mady Covarrubias PA-C Work Phone: [facility] 08-13-2022 12:52-0400 Body temperature 98.6 [degF] Mady Covarrubias PA-C Work Phone: [facility] 08-13-2022 12:52-0400 Body weight 104.33 kg Mady Covarrubias PA-C Work Phone: [facility] 08-13-2022 12:52-0400 Respiratory rate 18 /min Mady Covarrubias PA-C Work Phone: [facility] 08-03-2021 14:00-0400 Body height 161.5 cm Mady Covarrubias PA-C Work Phone: [facility] 08-03-2021 14:00-0400 Body temperature 97.9 [degF] Mady Covarrubias PA-C Work Phone: [facility] 08-03-2021 14:00-0400 Body weight 101.15 kg Mady Covarrubias PA-C Work Phone: [facility] 08-03-2021 14:00-0400 Diastolic blood pressure 88 mm[Hg] Mady Covarrubias PA-C Work Phone: [facility] 08-03-2021 14:00-0400 Heart rate 80 /min Mady Covarrubias PA-C Work Phone: [facility] 08-03-2021 14:00-0400 Respiratory rate 20 /min Mady Covarrubias PA-C Work Phone: [facility] 08-03-2021 14:00-0400 Systolic blood pressure 126 mm[Hg] Mady Covarrubias PA-C Work Phone: [facility] Encounters Encounter Date Encounter Type Care Provider Facility Start: 10-24-2024 End: 10-24-2024 Patient encounter procedure Vira BLAKE -[facility] Work Phone: Start: 10-24-2024 End: 10-24-2024 ambulatory Mady Covarrubias PA Work Phone: [facility] Work Phone: Start: 09-25-2024 End: 09-25-2024 ambulatory Mady Covarrubias PA Work Phone: [facility] Work Phone: Start: 09-25-2024 End: 09-25-2024 Patient encounter procedure Vira BLAKE -Laboratory Specimen Work Phone: Start: 09-25-2024 End: 09-25-2024 ambulatory Vira Valderrama Facility:[facility] Start: 09-21-2024 End: 09-21-2024 ambulatory CAMI Anitra SHELBYANDRZEJ Facility:[facility] Start: 09-21-2024 End: 09-21-2024 Patient encounter procedure Vira BLAKE -[facility] Work Phone: Start: 09-21-2024 End: 09-21-2024 ambulatory Mady BLAKE Work Phone: [facility] Work Phone: Start: 09-21-2024 End: 09-21-2024 ambulatory Vira Valderrama Facility:[facility] Start: 09-03-2024 ambulatory Mady BLAKE Fac ility:[facility] Start: 09-03-2024 [facility] Start: 09-03-2024 End: 09-03-2024 Admission to same day surgery center Juan R Haddad DO -Endoscopy Work Phone: Start: 09-03-2024 End: 09-03-2024 ambulatory Mady BLAKE Facility:[facility] Start: 08-17-2024 End: 10-17-2024 Follow-up encounter Mady Covarrubias PA-C Work Phone: [facility] Comment on above: Results Start: 08-16-2024 End: 08-16-2024 ambulatory MADY COVARRUBIAS Facility:[facility] Start: 08-16-2024 End: 08-16-2024 Subsequent hospital visit by physician Screen Mammo [facility] Mammogram Comment on above: Encounter for screen ing mammogram for breast cancer [Z12.31] Start: 08-16-2024 Encounter for genera l adult medical examination without abnormal findings MADY COVARRUBIAS [facility] Start: 08-16-2024 End: 08-16-2024 Patient encounter procedure Mady Covarrubias PA-C Work Phone: [facility] Comment on above: Well adult exam ([facility] Dx); RLS (restless legs syndrome); Obesity, Class II, BMI 35-39.9; Elevated hemoglobin A1c; Screening for depression; Encounter for screening examination for other mental health and behavioral disorders; Family history of thyroid disease; History of colonic polyps; Encounter for lipid screening for cardiovascular disease Start: 08-16-2024 End: 08-16-2024 Patient encounter status Mady Covarrubias PA-C Work Phone: [facility] Start: 08-16-2024 End: 08-16-2024 ambulatory ENOC OLIVEIRA Facility:[facility] Start: 07-28-2024 End: 07-30-2024 Refill Shan Vargas MD Work Phone: Endocrinology Comment on above: Refill Request Start: 07-03-2024 End: 08-03-2024 ambulatory Enoc Oliveira MD Work Phone: [facility] Start: 06-28-2024 End: 06-28-2024 [facility]: Start: 06-28-2024 End: 06-28-2024 Refill Enoc Oliveira MD Work Phone: [facility] Start: 05-20-2024 End: 05-21-2024 ambulatory Shan Vargas MD Work Phone: Endocrinology Comment on above: Weight loss Start: 05-12-2024 End: 05-12-2024 ambulatory ENOC OLIVEIRA Facility:[facility] Start: 05-07-2024 End: 05-07-2024 ambulatory Shan Vragas MD Work Phone: Endocrinology Comment on above: Obesity, Class II, B RI 35-39.9 (Primary Dx); Prediabetes Start: 05-07-2024 End: 05-07-2024 Telemedicine consultation with patient Shan Vargas MD Work Phone: Endocrinology Start: 05-01-2024 End: 06-01-2024 Admission to same day surgery center Enoc Oliveira MD Work Phone: Ambulatory Surgery Comment on above: Outpatient [place] py (Patijent overdue for colorectal cancer screening. Please schedule open access colonoscopy) Start: 05-01-2024 End: 06-01-2024 ambulatory Enoc Oliveira MD Work Phone: Ambulatory Surgery Start: 11-02-2023 Encounter for genera l adult medical examination without abnormal findings Pranay BLAKE [facility] Start: 11-02-2023 Physical examination Mady BLAKE Work Phone: [facility] Start: 11-02-2023 End: 11-02-2023 ambulatory Mady BLAKE Facility[facility] Start: 08-17-2023 Telephone encounter Mady landers PA-C Work Phone: [facility] Comment on above: Results Start: 08-16-2023 End: 08-16-2023 Patient encounter procedure Mady Covarrubias PA-C Work Phone: [facility] Comment on above: Well adult exam ([facility] Dx); RLS (restless legs syndrome); History of colonic polyps; Elevated hemoglobin A1c; Obesity, Class II, BMI 35-39.9; Ex-smoker; Primary insomnia; Encounter for lipid screening for cardiovascular disease; Family history of thyroid disease Start: 08-16-2023 End: 08-16-2023 Patient encounter status Mady Covarrubias PA-C Work Phone: [facility] Work Phone: Start: 08-03-2023 ambulatory Enoc blanchard MD Work Phone: [facility] [place] Start: 11-18-2022 End: 11-18-2022 Emergency department patient visit [facility] Work Phone: Start: 11-17-2022 ambulatory Mady womack PA-C Work Phone: [facility] Comment on above: Diarrhea Start: 11-12-2022 End: 11-12-2022 Patient encounter procedure Mady Covarrubias PA-C Work Phone: [facility] Comment on above: Diarrhea, unspecifie d type (Primary Dx); Generalized abdominal pain; Bloating; Left lower quadrant abdominal pain; Hx of diverticulitis of colon Start: 11-09-2022 ambulatory Enoc blanchard MD Work Phone: [facility] Comment on above: Diarrhea; stomach pa in Start: 08-16-2022 Telephone encounter Mady landers PA-C Work Phone: [facility] Comment on above: Results Start: 08-13-2022 End: 08-13-2022 Patient encounter procedure Mady Covarrubias PA-C Work Phone: [facility] Comment on above: Well adult exam ([facility] moises Dx); Obesity, Class II, BMI 35-39.9; Elevated hemoglobin A1c; Encounter for screening mammogram for breast cancer; Family history of pancreatic cancer; Family history of thyroid disease; Encounter for lipid screening for cardiovascular disease Start: 08-13-2022 End: 08-13-2022 Patient encounter status Mady Covarrubias PA-C Work Phone: [facility] Start: 05-10-2022 Refill Enoc blanchard MD Work Phone: [facility] Comment on above: Refill Request Start: 03-03-2022 End: 03-04-[address] TYRA REYES DO Facility:[facility] Start: 03-03-2022 End: 03-03-[address] TYRA REYES DO [facility] Start: 12-18-2021 End: 12-19-[address] TYRA REYES DO Facility:[facility] Start: 12-18-2021 End: 12-18-[address] TYRA REYES DO [facility] Start: 08-10-2021 Telephone encounter Enoc Oliveira MD Work Phone: [facility] Comment on above: Results Start: 08-08-2021 Documentation procedure Mammog machelle Coordinator [facility] Start: 08-08-2021 Letter encounter Mammography Coordinator [facility] Department Start: 08-04-2021 Telephone encounter Mady landers PA-C Work Phone: [facility] [place] Comment on above: Results Start: 08-03-2021 End: 08-03-2021 Patient encounter procedure Mady Covarrubias PA-C Work Phone: [facility] Comment on above: Well adult exam ([facility] moises Dx); RLS (restless legs syndrome); Obesity, Class II, BMI 35-39.9; Primary insomnia; Elevated hemoglobin A1c; Arthralgia of left knee; Weight gain; Screening mammogram for breast cancer; Encounter for screening for diabetes mellitus; Family history of thyroid disease; Encounter for lipid screening for cardiovascular disease; Ex-smoker Start: 08-03-2021 End: 08-03-2021 Patient encounter status Mady Covarrubias PA-C Work Phone: [facility] Procedures Date Procedure Procedure Detail Performing Clinician Start: 09-21-2024 Measurement of funga l antibody Mady BLAKE Work Phone: Comment on above: Negative: <45 Equivo deangelo: 45-50 Positive: >50 Start: 08-16-2024 Adult depression screening assessment Mady Covarrubias PA-C Work Phone: Start: 08-16-2024 Lipid 1996 panel - S lauren or Plasma Screen [facility] Start: 08-16-2023 Adult depression screening assessment Shan Vargas MD Work Phone: Start: 08-16-2023 Lipid 1996 panel - S lauren or Plasma Mady Covarrubias PA-C Work Phone: Start: 11-18-2022 Computed tomography of abdomen and pelvis with intravenous contrast Start: 08-13-2022 Lipid 1996 panel - S lauren or Plasma Enoc Oliveira MD Work Phone: Start: 08-07-2021 Mammography Mammograph y Coordinator Start: 09-22-2020 Colonoscopy Mady landers PA-C Work Phone: Start: 08-06-2020 Mammography Mady landers PA-C Work Phone: Plan of Treatment Date Care Activity Detail Author Start: 09-03-2029 Screening for malignant neoplasm of cervix Cervical Cancer Screening [facility] Start: 08-16-2029 Lipid panel Lipid Screening [facility] Start: 08-15-2028 Lipid panel Lipid Screening [facility] Start: 08-17-2027 Diabetes Screening Diabetes Screening [facility] Start: 08-14-2027 Lipid panel Lipid Screening [facility] Start: 08-14-2027 LIPID SCREEN LIPID SCREEN [facility] Start: 05-12-2027 Diabetes Screening Diabetes Screening [facility] Start: 08-15-2026 Diabetes Screening Diabetes Screening [facility] Start: 08-03-2026 LIPID SCREEN LIPID SCREEN [facility] Start: 11-12-2025 DIABETES SCREEN DIABETES SCREEN [facility] Start: 11-12-2025 Diabetes Screening Diabetes Screening [facility] Start: 08-16-2025 Anxiety Screening Anxiety Screening [facility] Start: 08-16-2025 Covid-19 Vaccine ( season) Covid-19 Vaccine () [facility] Comment on above: Postponed from 01/01/2024 (Declined at t his time) Start: 08-16-2025 Depression Screening Depression Screening [facility] Start: 08-16-2025 Pneumococcal Vaccine: 50+ (1 of 1 - PCV) Pneumococcal Vaccine: 50+ (1 of 1 - PCV) [facility] Comment on above: Postponed from 01/10/2016 (Declined at t his time) Start: 08-16-2025 Screening for malignant neoplasm of breast Mammogram Screening [facility] Start: 08-16-2025 Shingrix Vaccine (1 of 2) Shingrix Vaccine (1 of 2) [facility] Comment on above: Postponed from 01/10/2016 (Declined at t his time) Start: 08-13-2025 DIABETES SCREEN DIABETES SCREEN [facility] Start: 08-06-2025 HPV TESTING HPV TESTING [facility] Start: 08-06-2025 LIPID SCREEN LIPID SCREEN [facility] Start: 08-06-2025 PAP TESTING PAP TESTING [facility] Start: 08-06-2025 Screening for malignant neoplasm of cervix [facility] Start: 12-31-2024 Influenza vaccination Influenza Vaccine (Season Ended) [facility] Start: 11-08-2024 End: 11-08-2024 Patient encounter procedure 11/08/2024 4:30 PM EDT Office Visit Endocrinology [address] [place] [address] Cami Venegas APRN.[employer]ICIAN [address] [place] [address] 5.23 appt follow up; weight managment Endocrinology Comment on above: 5.23 appt follow up; weight managment Start: 10-29-2024 Influenza vaccination Influenza Vaccine (#1) [facility] Comment on above: Postponed from 01/01/2024 (Declined at t his time) Start: 10-04-2024 Urine microalbumin profile [facility] Start: 09-03-2024 Colonoscopy w/biopsy single/multiple COLONOSCOPY AND BIOPSY [facility] Start: 09-03-2024 Egd transoral biopsy single/multiple EGD BIOPSY SINGLE/MULTIPLE [facility] Start: 09-03-2024 Patient discharge [facility] Start: 08-17-2024 End: 08-17-2024 ambulatory 08/17/2024 3:40 PM EDT [facility] [address] [place] [address] Shan Vargas MD [address] [place] [address] Weight loss Endocrinology Comment on above: Weight loss Start: 08-16-2024 End: 08-16-2024 Patient encounter procedure 08/16/2024 2:50 PM EDT Appointment Mammogram [address] [place] [address] Mammogram Start: 08-16-2024 End: 11-15-2024 Hemoglobin A1c in Blood [facility] Work Phone: Comment on above: Expected: 08/16/2024, Expires: Start: 08-16-2024 End: 11-15-2024 LIPID PANEL, NONFASTING [facility] Comment on above: Expected: 08/16/2024, Expires: Start: 08-16-2024 End: 11-15-2024 Thyrotropin [Units/volume] in Serum or Plasma [facility] Comment on above: Expected: 08/16/2024, Expires: Start: 08-16-2024 End: 08-16-2024 Patient encounter procedure 08/16/2024 1:20 PM EDT Office [facility] [address] [place] [address] Mady Covarrubias PA-C [address] [place], [place] [id number] [facility] Comment on above: Physical Start: 08-15-2024 Anxiety Screening Anxiety Screening [facility] Start: 08-15-2024 Covid-19 Vaccine () Covid-19 Vaccine () [facility] Comment on above: Postponed from 12/31/2022 (Declined at t his time) Start: 08-15-2024 Depression Screening Depression Screening [facility] Start: 08-15-2024 Hepatitis B Vaccine (1 of 3 - 19+ 3-dose series) Hepatitis B Vaccine (1 of 3 - 19+ 3-dose series) [facility] Comment on above: Postponed from 1985 (Declined at t his time) Start: 08-15-2024 Shingrix Vaccine (1 of 2) Shingrix Vaccine (1 of 2) [facility] Comment on above: Postponed from 01/10/2016 (Declined at t his time) Start: 08-03-2024 DIABETES SCREEN DIABETES SCREEN [facility] Start: 05-07-2024 End: 08-06-2024 Hemoglobin A1c in Blood HEMOGLOBIN A1C Lab Routine Obesity, Class II, BMI 35-39.9 Prediabetes Expected: 05/07/2024, Expires: 08/06/2024 [facility] Work Phone: Comment on above: Expected: 05/07/2024, Expires: Start: 01-01-2024 Covid-19 Vaccine () Covid-19 Vaccine () [facility] Start: 01-01-2024 Influenza vaccination [facility] Start: 09-23-2023 Colonoscopy COLONOSCOPY [facility] Start: 09-23-2023 COLORECTAL CANCER SCREENING COLORECTAL CANCER SCREENING [facility] Start: 09-23-2023 Screening for malignant neoplasm of colon [facility] Start: 08-16-2023 End: 11-15-2023 Hemoglobin A1c in Blood [facility] Work Phone: Comment on above: Expected: 08/16/2023, Expires: Start: 08-14-2023 COVID-19 VACCINE (3 - Booster for Pfizer series) COVID-19 VACCINE (3 - Booster for Pfizer series) [facility] Comment on above: Postponed from 10/04/2020 (Declined at t his time) Start: 08-14-2023 COVID-19 VACCINE (3 - Pfizer series) COVID-19 VACCINE (3 - Pfizer series) [facility] Comment on above: Postponed from 10/04/2020 (Declined at t his time) Start: 08-14-2023 HEPATITIS B (1 of 3 - 3-dose series) HEPATITIS B (1 of 3 - 3-dose series) [facility] Comment on above: Postponed from 1966 (Declined at t his time) Start: 08-14-2023 Hepatitis B Vaccine (1 of 3 - 19+ 3-dose series) Hepatitis B Vaccine (1 of 3 - 19+ 3-dose series) [facility] Comment on above: Postponed from 1985 (Declined at t his time) Start: 08-14-2023 SHINGRIX VACCINE (1 of 2) SHINGRIX VACCINE (1 of 2) [facility] Comment on above: Postponed from 01/10/2016 (Declined at t his time) Start: 08-07-2023 DIABETES SCREEN DIABETES SCREEN [facility] Start: 05-02-2023 Behavioral Health Screening Behavioral Health Screening [facility] Start: 05-01-2023 DEPRESSION ASSESSMENT DEPRESSION ASSESSMENT [facility] Comment on above: Postponed from 05/02/2022 (Declined at t his time) Start: 12-31-2022 Covid-19 Vaccine () Covid-19 Vaccine () [facility] Start: 12-31-2022 Influenza vaccination [facility] Start: 11-18-2022 End: 01-18-2023 C reactive protein [Mass/volume] in Serum or Plasma C-REACTIVE PROTEIN (CRP) Lab Routine Diarrhea, unspecified type Bloating Generalized abdominal pain Expected: 11/18/2022, Expires: 01/18/2023 [facility] Work Phone: Comment on above: Expected: 11/18/2022, Expires: 3 Start: 11-18-2022 End: 01-18-2023 CBC W Auto Differential panel - Blood CBC + DIFF Lab Routine Diarrhea, unspecified type Bloating Generalized abdominal pain Expected: 11/18/2022, Expires: 01/18/2023 [facility] Work Phone: Comment on above: Expected: 11/18/2022, Expires: 3 Start: 11-18-2022 End: 01-18-2023 Comprehensive metabolic 2000 panel - Serum or Plasma COMP METABOLIC PANEL Lab Routine Diarrhea, unspecified type Bloating Generalized abdominal pain Expected: 11/18/2022, Expires: 01/18/2023 [facility] Work Phone: Comment on above: Expected: 11/18/2022, Expires: 3 Start: 11-18-2022 Enteric precautions [facility] Start: 11-12-2022 End: 01-12-2023 Amylase [Enzymatic activity/volume] in Serum or Plasma [facility] Work Phone: Comment on above: Expected: 11/12/2022, Expires: 3 Start: 11-12-2022 End: 01-12-2023 C reactive protein [Mass/volume] in Serum or Plasma [facility] Work Phone: Comment on above: Expected: 11/12/2022, Expires: 3 Start: 11-12-2022 End: 01-12-2023 Comprehensive metabolic 2000 panel - Serum or Plasma [facility] Work Phone: Comment on above: Expected: 11/12/2022, Expires: 3 Start: 11-12-2022 End: 01-12-2023 Lipase [Enzymatic activity/volume] in Serum or Plasma [facility] Work Phone: Comment on above: Expected: 11/12/2022, Expires: 3 Start: 08-13-2022 End: 10-13-2022 Comprehensive metabolic 2000 panel - Serum or Plasma [facility] Work Phone: Comment on above: Expected: 08/13/2022, Expires: 3 Start: 08-13-2022 End: 10-13-2022 Hemoglobin A1c in Blood [facility] Work Phone: Comment on above: Expected: 08/13/2022, Expires: 3 Start: 08-13-2022 End: 10-13-2022 LIPID PANEL, NONFASTING [facility] Work Phone: Comment on above: Expected: 08/13/2022, Expires: 3 Start: 08-13-2022 End: 10-13-2022 Thyrotropin [Units/volume] in Serum or Plasma [facility] Work Phone: Comment on above: Expected: 08/13/2022, Expires: 3 Start: 08-07-2022 Mammography MAMMOGRAM [facility] Start: 08-07-2022 Screening for malignant neoplasm of breast Mammogram Screening [facility] Start: 05-02-2022 DEPRESSION ASSESSMENT DEPRESSION ASSESSMENT [facility] Start: 12-31-2021 Influenza vaccination INFLUENZA (#1) [facility] Start: 08-06-2021 Mammography MAMMOGRAM [facility] Start: 08-03-2021 End: 10-03-2021 Comprehensive metabolic 2000 panel - Serum or Plasma [facility] Work Phone: Comment on above: Expected: 08/03/2021, Expires: 2 Start: 08-03-2021 End: 10-03-2021 Hemoglobin A1c/Hemoglobin.total in Blood [facility] Work Phone: Comment on above: Expected: 08/03/2021, Expires: 2 Start: 08-03-2021 End: 10-03-2021 LIPID PANEL, NONFASTING [facility] Work Phone: Comment on above: Expected: 08/03/2021, Expires: 2 Start: 08-03-2021 End: 10-03-2021 Thyrotropin [Units/volume] in Serum or Plasma [facility] Work Phone: Comment on above: Expected: 08/03/2021, Expires: 2 Start: 2021 COVID-19 VACCINE (3 - Booster for Pfizer series) COVID-19 VACCINE (3 - Booster for Pfizer series) [facility] Start: 10-04-2020 COVID-19 VACCINE (3 - Booster for Pfizer series) COVID-19 VACCINE (3 - Booster for Pfizer series) [facility] Start: 01-10-2016 Pneumococcal Vaccine: 50+ (1 of 1 - PCV) Pneumococcal Vaccine: 50+ (1 of 1 - PCV) [facility] Start: 01-10-2016 SHINGRIX VACCINE (1 of 2) SHINGRIX VACCINE (1 of 2) [facility] Start: 2011 COLOGUARD (FIT-DNA) COLOGUARD (FIT-DNA) [facility] Start: [address] COLONOGRAPHY [facility] Start: 2011 FECAL OCCULT BLOOD FECAL OCCULT BLOOD [facility] Start: 2011 Screening for malignant neoplasm of colon [facility] Start: 2011 SIGMOIDOSCOPY SIGMOIDOSCOPY [facility] Start: 1985 Hepatitis B Vaccine (1 of 3 - 19+ 3-dose series) Hepatitis B Vaccine (1 of 3 - 19+ 3-dose series) [facility] Start: 1966 HEPATITIS B (1 of 3 - 3-dose series) HEPATITIS B (1 of 3 - 3-dose series) [facility] Clostridioides diffi cile DNA [Presence] in Unspecified specimen by CRISTINA with probe detection [facility] Clostridioides diffi cile toxin genes [Presence] in Stool by CRISTINA with probe detection C. DIFFICILE PCR Lab Routine Diarrhea, unspecified type Generalized abdominal pain Bloating Ordered: 11/12/2022 [facility] Work Phone: Comment on above: Ordered: 11/12/2022 End: 12-12-2023 Ct abdomen & pelvis w/contrast material CT ABD/PEL W IVCON Radiology Routine Diarrhea, unspecified type Generalized abdominal pain Bloating Left lower quadrant abdominal pain Hx of diverticulitis of colon 1 Occurrences starting 11/12/2022 until 12/12/2023 [facility] Work Phone: Comment on above: 1 Occurrences starting 11/12/2022 until 12/12/2023 End: 08-02-2025 DBT Breast - bilateral screening BEATRICE SCREENING W WALTER Radiology Routine Encounter for screening mammogram for breast cancer 1 Occurrences starting 07/03/2024 until 08/02/2025 [facility] [facility] Work Phone: Comment on above: 1 Occurrences starting 07/03/2024 until 08/02/2025 DBT Breast - bilater al screening BEATRICE SCREENING W AWLTER Radiology Routine Encounter for screening mammogram for breast cancer 08/16/2024 2:51 PM EDT [facility] Work Phone: ENTERIC BACTERIAL PA MCKENNA BY PCR ENTERIC BACTERIAL PANEL BY PCR Lab Routine Diarrhea, unspecified type Generalized abdominal pain Bloating Ordered: 11/12/2022 [facility] Work Phone: Comment on above: Ordered: 11/12/2022 FAT, FECAL QUAL FAT, FECAL QUAL Lab Routine Diarrhea, unspecified type Generalized abdominal pain Bloating Ordered: 11/12/2022 [facility] Work Phone: Comment on above: Ordered: 11/12/2022 FECAL LACTOFERRIN/LEUKOCYTES FECAL LACTOFERRIN/LEUKOCYTES Lab Routine Diarrhea, unspecified type Generalized abdominal pain Bloating Ordered: 11/12/2022 [facility] Work Phone: Comment on above: Ordered: 11/12/2022 Gastrointestinal pathogens panel - Stool by CRISTINA with probe detection [facility] Lactoferrin [Presenc e] in Stool by Immunoassay [facility] End: 09-12-2023 BEATRICE SCREENING BEATRICE SCREENING Radiology Routine Encounter for screening mammogram for breast cancer 1 Occurrences starting 08/13/2022 until 09/12/2023 [facility] Work Phone: Comment on above: 1 Occurrences starting 08/13/2022 until 09/12/2023 End: 09-01-2024 MG Breast Screening BEATRICE SCREENING Radiology Routine Encounter for screening mammogram for breast cancer 1 Occurrences starting 08/03/2023 until 09/01/2024 [facility] Work Phone: Comment on above: 1 Occurrences starting 08/03/2023 until 09/01/2024 Ova and parasites identified in Unspecified specimen by Light microscopy [facility] Patient Education Diverticulitis [facility] Work Phone: Patient referral [facility] Work Phone: Radionuclide gastric emptying study [facility] End: 09-02-2022 Screening mammography bi 2-view breast inc cad BEATRICE SCREENING Radiology Routine Screening mammogram for breast cancer 1 Occurrences starting 08/03/2021 until 09/02/2022 [facility] Work Phone: Comment on above: 1 Occurrences starting 08/03/2021 until 09/02/2022 [facility] Immunizations Immunization Date Immunization Notes Care Provider Fa [facility] 03-10-2021 influenza, injectabl e, quadrivalent, contains preservative Mady Covarrubias PA-C Work Phone: [facility] 03-10-2021 influenza virus vaccine, unspecified formulation Enoc Oliveira MD Work Phone: [facility] 07-18-2020 COVID-19 vaccine, ag e 12+ yr ([employer] - PURPLE TOP) Mady Covarrubias PA-C Work Phone: [facility] Work Phone: 02-05-2020 influenza, seasonal, injectable Mady Covarrubias PA-C Work Phone: [facility] Work Phone: 06-09-2019 influenza, injectabl e, quadrivalent, contains preservative Mady Covarrubias PA-C Work Phone: [facility] 02-20-2015 influenza, injectabl e, quadrivalent, contains preservative Mady Covarrubias PA-C Work Phone: [facility] 10-04-2014 tetanus toxoid, redu jamari diphtheria toxoid, and acellular pertussis vaccine, adsorbed Mady Covarrubias PA-C Work Phone: [facility] Work Phone: 07-11-2014 tetanus toxoid, redu jamari diphtheria toxoid, and acellular pertussis vaccine, adsorbed DR TYRA REYES DO [facility] 07-02-2006 tetanus and diphther ia toxoids, adsorbed, preservative free, for adult use (2 Lf of tetanus toxoid and 2 Lf of diphtheria toxoid) Mady Covarrubias PA-C Work Phone: [facility] Payers Date Payer Category Payer Private Health Insurance [facility] [id number] [address] [facility] [id number] 2023 Self-pay [id number] 2023 Private Health Insurance [id number] 2021 Unknown [id number] 2018 Unknown [employer] PPO OOS [id number] 2018-Present [phone] [address] [place] [address] PPO [id number] 2018 Unknown [employer] C[employer] PPO OOS [id number] 2018-Present [phone] [address] [place] [address] PPO [id number] 1965 Unknown [id number] 1965 Unknown [id number] Private Health Insurance [facility] [id number] Unknown SELF INSURED [facility] OTHER [id number] Unknown [id number] Unknown [id number] Unknown [id number] Unknown [id number] Unknown [id number] Unknown [id number] Unknown [id number] Unknown [id number] Unknown [id number] Social History Date Type Detail Facility Start: 04-10-2013 End: 08-29-2024 Tobacco smoking status NHIS Ex-smoker [facility] End: 05-02-2007 History of tobacco use Current smoker [facility] Work Phone: End: 05-02-2007 History of tobacco use Cigarette Smoker [facility] Work Phone: Start: 08-03-2021 End: 08-16-2024 Alcohol intake Current drinker of alcohol (finding) [facility] Start: 12-19-2014 History SDOH Alcohol Comment occasional 1-2 per month [facility] Start: 1965 Sex Assigned At Not on file [facility] Start: 07-24-2021 End: 08-07-2021 Exposure to SARS-CoV-2 (event) Not sure [facility] Sex Assigned At Sex [facility] Start: 04-10-2013 End: 11-12-2022 Cigarettes smoked current (pack per day) - Reported 0.5 [facility] Work Phone: Start: 04-10-2013 End: 08-16-2024 Tobacco use and exposure Smokeless tobacco non-user [facility] Work Phone: Start: 08-13-2022 End: 11-12-2022 Tobacco use panel [facility] Work Phone: National Score (1-10 0), lower number is lower risk 57 [facility] Work Phone: Start: 11-18-2022 Tobacco smoking stat [facility] Unknown if ever smoked [facility] Start: 1965 Sex Assigned At Female [facility] Start: 05-22-2024 Gender identity Identifies as female gender (finding) [facility] Has the Vahna, [employer], oil, or water Bedloo threatened to shut off services in your home in past 12Mo No [facility] Are you now , , , , never or living with a partner? [facility] How often to you hav e a drink containing alcohol? 2-4 times a month [facility] How many standard drinks containing alcohol do you have on a typical day? 1 or 2 [facility] How often do you hav e 6 or more drinks on 1 occasion? Never [facility] Do you feel stress - tense, restless, nervous, or anxious, or unable to sleep at night because your mind is troubled all the time - these days [OSQ] Not at all [facility] (I/We) worried whesharron er (my/our) food would run out before (I/we) got money to buy more. Never true [facility] Medical Equipment Procedure Code Equipment Code Equipment Origin al Text Equipment Identifier Dates Anchr Sut 3.5mm Suturebridge - [id number] Start: 12-25-2014 Comment on above: Description: Suture [place] [employer] Push Lock Goals Date Patient Goal Desired Activity /State Functional Status Date Assessment Result Facility 08-16-2024 Total score [AUDIT-C] 2 08/17/19 6:41 AM EDT UserSuzette [facility] 08-16-2024 Within the last year , have you been humiliated or emotionally abused in other ways by your partner or ex-partner? No 08/16/2024 6:41 AM EDT UserSuzette No [facility] 08-16-2024 Within the last year , have you been afraid of your partner or ex-partner? No 08/16/2024 6:41 AM EDT User, Suzette No [facility] 08-16-2024 Within the last year , have you been raped or forced to have any kind of sexual activity by your partner or ex-partner? No 08/16/2024 6:41 AM EDT UserSuzette No [facility] 08-16-2024 Within the last year , have you been kicked, hit, slapped, or otherwise physically hurt by your partner or ex-partner? No 08/16/2024 6:41 AM EDT User, Suzette No [facility] 08-16-2024 How often to you hav e a drink containing alcohol? 2-4 times a month 08/16/2024 6:41 AM EDT User, Marybetht 2-4 times a month [facility] 08-16-[address] inks containing alcohol do you have on a typical day? 1 or 2 08/16/2024 6:41 AM EDT User, Marybetht 1 or 2 [facility] 08-16-2024 How often do you hav e 6 or more drinks on 1 occasion? Never 08/16/2024 6:41 AM EDT UserMarybetht Never [facility] 12-05-2014 Are you deaf, or do you have serious difficulty hearing No 12/05/2014 8:23 AM Briana Cleary (Rn) (Hist), RN No [facility] 12-05-2014 Are you blind, or do you have serious difficulty seeing, even when wearing glasses No 12/05/2014 8:23 AM Briana ClearyRn) (Hist), RN No [facility] 12-05-2014 Do you have serious difficulty walking or climbing stairs No 12/05/2014 8:23 AM EDT Briana Sams (Rn) (Hist), RN No [facility] 12-05-2014 Do you have difficul ty dressing or bathing Yes 12/05/2014 8:23 AM EDT Briana SamsRn) (Hist), RN Yes [facility] 12-05-2014 Because of a physica l, mental, or emotional condition, do you have difficulty doing errands alone such as visiting a physician's office or shopping No 12/05/2014 8:23 AM EDT Briana Sams (Rn) (Hist), RN No [facility] Mental Status Date Assessment Result Facility 09-03-2024 Cognitive function Voice/Name [facility] Work Phone: 12-05-2014 Because of a physica l, mental, or emotional condition, do you have serious difficulty concentrating, remembering, or making decisions No 12/05/2014 8:23 AM EDBriana RamRn) (Hist), RN No [facility] Clinical Notes 08-03-2021 to 09-21-2024 Result Encounter Note - Esperanza Whitmore MA - 08/24/2024 2:15 PM EDTResult Encounter Note - Esperanza Whitmore MA - 08/24/2024 2:15 PM Priscila Seo Mammo Tech - 08/16/2024 2:50 PM EDT Note Date & Type Note Facility 09-21-2024 Note HNO ID: [id number] Author: CAMI VENEGAS APRN.MOTOR VEHICLE TECHNICIAN Service: ? Author Type: Nurse Practitioner Type: Progress Notes Filed: 09/21/2024 17:24 Note Text: Endocrinology Weight Management Follow Up Subjective History of Present Illness Name: Elisabeth Allen Ruthie : 1965 Patient comes today for follow up of weight management. Pertinent associated health conditions include RLS, elevated A1c, former smoker, insomnia From initial consult 05/07/2024: Previous attempt for weight loss: eating healthy lost weigh tin 2022, went down to 213 but regained weight (more sedentary work ) Current weight: 240 lbs Lifestyle Factors Diet and Eating behaviors 24h food recall: -- B: skips -- L: left over -- D: chicken or pork salad -- S: sweets -- sugary beverages: --Can improve reducing sugar Appetite Control -- --appetite control/portion control: she feels she overeats -- cravings sweets -- binge eating: n -- late night eating: n -- emotional eating: n Exercise -- no -- physical limitations: no 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 Snoring Do you snore loudly (louder than talking or loud enough to be heard through closed doors)? NO 2. Tired Do you often feel tired, fatigued, or sleepy during daytime? NO 3. Observed Has anyone observed you stop breathing during your sleep? NO 4. Blood Pressure Do you have or are you being treated for high blood pressure? NO 5. BMI BMI more than 35 kg/m2? 41 YES 6. Age Age over 50 yr old? 59 year old YES 7. Neck circumference Neck circumference greater than 40 cm? NO 8. Gender Gender male? female NO * Neck circumference is measured by staff High risk of FELISHA: answering yes to three or more items Low risk of FELISHA: answering yes to less than three items Stress -- manageable Social History Alcohol: y Smoking: Tobacco Use: .5 packs/day Quit 05/02/2007. Types: Cigarettes Recreational Drugs: n Starting weight - 05/07/2024 : 240 lb Recommended metformin or phentermine Previous experience with weight loss medication(s): Topamax Contraindications to weight loss medication(s): Interval HPI Last seen by endocrinology weight management 05/07/2024 - by Dr Vargas Current [facility] Weight Management: - Previously prescribed Topamax with no perceived benefit. - Engages in regular exercise, including walking 1.5 miles daily and using the Merku po for chair aerobics. - Reports frustration with lack of weight loss despite consistent exercise and dietary efforts. - Consumes a high-protein diet, including protein shakes and bars, lean proteins, and vegetables. - Avoids eating after 19:00. - Experiences cravings for sweets, particularly after dinner. - Drinks at least 120 oz of water daily, sometimes flavored with sugar-free additives. - Family history of obesity; sister underwent bariatric surgery. - has lost significant weight on metformin and an injectable medication for diabetes. - Recent colonoscopy led to a diagnosis of Crohn's disease. - Previously tried a gluten-free diet with no significant improvement in symptoms. Current weight loss medication(s): Topamax Side effects with treatment: Na Weight graph: Cooking healthy for Diabetic 24 hr recall: B- 45 g protein shake and coffee S - protein bar - choice brand L- left overs - chicken veggie/rice D- cooking at home protein, starch, veggie Snacks: Desserts: Beverages: water Exercise / Physical Activity: Walking neighborhood - [place] Exercise bands Lazy fit po Knee pain Sleep: Sleeping ok Stress: Manageable / functional Review of Systems: Per HPI and/or patient questionnaire. Past History, Allergies, Medications PAST MEDICAL HISTORY Diagnosis Date Adhesive capsulitis of right shoulder 12/26/2014 Arthritis of right knee 06/25/2019 Bankart lesion of right shoulder 12/26/2014 Diverticulosis of colon 06/25/2019 Ex-smoker 06/09/2019 Started at age 15 up to 1 PPD and quit at 33 Family history of thyroid disease 06/09/2019 History of Clostridioides difficile colitis 06/25/2019 Impingement syndrome of right shoulder 12/26/2014 Obesity, Class II, BMI 35-39.9 06/25/2019 Other specified disorder of gallbladder 04/16/2008 Primary insomnia 06/25/2019 RLS (restless legs syndrome) 11/05/2019 Well adult exam 06/09/2019 PAST SURGICAL HISTORY Procedure Laterality Date ABDOMINAL SURGERY HX COLONOSCOPY 09/03/2024 diverticulosis- Dr. Haddad COLONOSCOPY GEN ANES 09/22/2020 Repeat in 3 years DIAGNOSTIC ARTHROSCOPY SHOULDER +- SYNOVIAL BX Right 12/25/2014 Right shoulder arthroscopic labral repair SAD, Lysis of adhesions and manipulation under anethesia EGD [facility] SPEC VARICIES INJ 09/03/2024 Dr. Haddad EYE SURGERY HX KNEE SURGERY HX Left 04/01/2022 LAPS SURG CHOLECYSTECTOMY W/CHOLANGIOGRAPHY 05/01/2008 Norm (more content not included)... [facility] 09-03-2024 Note [facility] Medical Records Department [address] [place] [address] History Physical Exam 09/03/24 0638 MR#: [id number] Acct: [id number] Name: ELISABETH HENDRICKS Rep #: [id number] : 1965 59 From: Juan R Haddad DO PCP: HAYDEN Carrasco Status:[facility] Location: [place] [address] HPI - General General Date of Admission: 09/03/24 Date of Service: 09/03/24 Chief Complaint: GERD and h/o polyps in the colon HPI Narrative ELISABETH HENDRICKS, is a 59 F who presents for an EGD and colonoscopy. Over the past year pt has been struggling with heartburn, bloating and and vomiting. Pt heartburn symptoms are worse in the evening and it often takes her hours to fall asleep. She will take TUMs on occasion but is not on daily PPI. SHe vomits in the morning on occasion but does not ever feel nauseous prior. When she eats she feels bloated and like the food is not digesting. She eats a healthy diet as she is trying to lose weight. She only drinks water, no carbonated or sugary drinks. It does not matter what she eats she will get these symptoms. She has never had an EGD. Last colonoscopy was a about years ago with hx of polyps. She is s/p cholecystectomy in 2007. Since then she has had soft stools up to 9x per day. This does not bother her because its not liquid. [facility] Medical History Wears glasses Post-menopausal History of Clostridium difficile infection Kidney stone History of diverticulitis Former smoker History of colon polyps GERD (gastroesophageal reflux disease) Bloating Headaches due to old head injury Back pain Diverticulitis Home Medications ???Medication ???Instructions ???Recorded ???Last Taken ???Type loratadine 10 mg tablet (Claritin) 10 mg PO QDAY 06/28/24 09/02/24 History ropinirole 2 mg tablet 2 mg PO QDAY 06/28/24 09/02/24 His tory topiramate 50 mg tablet 50 mg PO QDAY 06/28/24 09/02/24 Hi story Allergy/AdvReac Type Severity Reaction Status Date / Time avocado Allergy Mild Other Verified 05/05/25 06:02 Family History Brother Cancer kidney Mother Cancer pancreatic Father Heart disease Grandmother Thyroid disorder Surgical History Hx of colonoscopy S/P tubal ligation S/P knee surgery S/P shoulder surgery S/P laparoscopic cholecystectomy Social History Smoking Status: Former smoker alcohol intake: current details: occasional ROS Constitutional Constitutional: Denies fatigue, fever(s), poor appetite, weight gain or weight loss Gastrointestinal Gastrointestinal: Denies belching, bloating, change in bowel habits, change in stool character, chewing difficulty, coffee ground emesis, constipation, cramping, diarrhea, dyspepsia, dysphagia, early satiety, excessive flatus, fecal incontinence, heartburn, hematemesis, hematochezia, hemorrhoids, loose stools, melena, nausea, odynophagia, rectal bleeding, tenesmus, vomiting or weight changes Vital Signs Vital Signs Vital Signs: 09/03/24 06:03 09/03/24 06:03 09/03/24 06:22 Temperature 97.5 F L 97.5 F L Temperature Source Temporal Pulse Rate 89 89 Respiratory Rate 18 18 Respiratory Pattern Normal Blood Pressure 135/91 H 135/91 H Blood Pressure Mean 105 Blood Pressure Source Monitor Blood Pressure Position Semi-Fowlers Blood Pressure Location Left Arm Pulse Ox 97 97 Oxygen Delivery Method Room Air Room Air Weight Weight: 232 lb 9.403 oz Body Mass Index (BMI) 38.7 Physical Exam Const alert, oriented x3, no apparent distress and healthy appearing General Appearance: cooperative GI normal to inspection, nondistended, normoactive bowel sounds, soft to palpation, non-tender and non- distended Percussion: normal to percussion Rectal Exam: deferred Assessment Plan Assessment/Plan (1) Nausea: (2) History of colon polyps: (3) Bloating: (4) GERD (gastroesophageal reflux disease): PLAN: Assessment and Plan Assessment and Plan (1) GERD (gastroesophageal reflux disease): Status: Acute Plan: Pt is a 59 yo female pt here today for evaluation of heartburn, nausea and bloating worsening over the past year. She has never had an EGD and does not take daily PPI. She will be scheduled for an EGD to rule out inflammation in her esophagus or stomach. I started her on pantoprazole 40 mg daily. She will take famotidine as needed. She will have a GES to rule out gastroparesis. She has a hx of colonic polyps with last colonoscopy about 5 years ago. She will undergo colonoscopy at the same time as her EGD for colon cancer screening. -Start pantoprazole 40 mg daily -Famotidine PRN (more content not included)... [facility] 08-24-2024 Progress note Formatting of t his note might be different from the original. Pt notified of results via Wrapp. Esperanza Whitmore Ma [facility] 08-24-2024 Miscellaneous Notes Pt notified of results via [employer]. Esperanza Whitmore Ma Left message for pt to contact office. Feroz Solomon LPN Let patient know that cholesterol is pretty stable as is her A1c. LDL at 132 is still a little higher than I recommend. Watch saturated fats in diet. Rest of her labs are wnl. Thanks. Mady Covarrubias PA-C documented in this encounter [facility] 08-17-2024 Telephone encounter Note Left message for pt to contact office. Freoz Solomon LPN [facility] 08-17-2024 Telephone encounter Note Let patient know that cholesterol is pretty stable as is her A1c. LDL at 132 is still a little higher than I recommend. Watch saturated fats in diet. Rest of her labs are wnl. Thanks. Mady Covarrubias PA-C [facility] 08-17-2024 Telephone encounter Note Patient notified and voiced understanding. Indira Tyson MA [facility] 08-17-2024 Miscellaneous Notes Patient notified and voiced understanding. Indira Tyson MA documented in this encounter [facility] 08-16-2024 History of Presen t illness Narrative Radiology Service Progress Note PATIENT NAME: Elisabeth Hendricks DATE OF SERVICE: August 16, 2024 TIME: 2:51 PM PATIENT IDENTITY VERIFICATION COMPLETED USING TWO (2) IDENTIFIERS: Name and Date of confirmed by patient verbally. FALL SCREENING: Has the patient had 2 falls in the last year or 1 fall with injury or currently using an Ambulatory Assistive Device (Walker, Cane, Wheelchair, Crutches, etc.)? No PATIENT GENDER DATA: Assigned female at . status: : No status: NO. PATIENT RELEVANT IMPLANT DATA REVIEWED: Not Applicable PATIENT PRESENTS WITH AN IMPLANTABLE OR ATTACHED MEDICINE WORKER: No RADIOLOGY DEPARTMENT: Mammography PERIPHERAL IV DATA: Not applicable SIGNED BY: Jeanie Bruce August 16, 2024 2:51 PM documented in this encounter [facility] 08-16-2024 Note HNO ID: [id number] Author: PRISCILA MORLEY Mammo Tech Service: ? Author Type: Lock Assembler Type: Progress Notes Filed: 08/16/2024 14:51 Note Text: Radiology Service Progress Note PATIENT NAME: Elisabeth Hendricks DATE OF SERVICE: August 16, 2024 TIME: 2:51 PM PATIENT IDENTITY VERIFICATION COMPLETED USING TWO (2) IDENTIFIERS: Name and Date of confirmed by patient verbally. FALL SCREENING: Has the patient had 2 falls in the last year or 1 fall with injury or currently using an Ambulatory Assistive Device (Walker, Cane, Wheelchair, Crutches, etc.)? No PATIENT GENDER DATA: Assigned female at . status: : No status: NO. PATIENT RELEVANT IMPLANT DATA REVIEWED: Not Applicable PATIENT PRESENTS WITH AN IMPLANTABLE OR ATTACHED MEDICINE WORKER: No RADIOLOGY DEPARTMENT: Mammography PERIPHERAL IV DATA: Not applicable SIGNED BY: Priscila Morley, [employer] August 16, 2024 2:51 PM [facility] 08-16-2024 Note HNO ID: [id number] Author: MADY COVARRUBIAS PA-C Service: ? Author Type: Physician Printing Screen Assembler Type: Progress Notes Filed: 08/16/2024 14:13 Note Text: Chief Complaint Patient presents with: Yearly Exam HPI Elisabeth Hendricks is a 59 year old female who presents here today for physical. Patient with RLS, elevated A1c, former smoker, RLS, insomnia, obesity, and those as below. Restless Leg Syndrome: - Currently managed with medication which is effective. - Uses an additional 1 mg dose PRN for long rides (>45 minutes) and flights. - Does not use the extra dose daily - 2 mg dose at night helps with sleep by relaxing legs. Weight Management: - Has lost 3 lbs since May while taking Topamax. - Frustrated with lack of significant weight loss; expected to lose 40 lbs by September. - Exercises 3-4 days a week, including walking a mile and doing stretching exercises. - Reports hip pain during exercise but continues to walk. - Diet includes high protein and fiber, with limited carbs and sugars. - Eats two hard-boiled eggs and V8 juice for breakfast, leftovers for lunch, and healthy dinners. - Rarely eats fast food or desserts; drinks alcohol occasionally. - has lost significant weight since being diagnosed with diabetes and starting Ozempic and metformin. - Denies smoking or e-cigarette use. Preventive Care: - Scheduled for a colonoscopy on September 03. - Mammogram scheduled for this afternoon. Past medical history, appointments, medications, allergies reviewed. Previous Medical History PAST MEDICAL HISTORY Diagnosis Date Adhesive capsulitis of right shoulder 12/26/2014 Arthritis of right knee 06/25/2019 Bankart lesion of right shoulder 12/26/2014 Diverticulosis of colon 06/25/2019 Ex-smoker 06/09/2019 Started at age 15 up to 1 PPD and quit at 33 Family history of thyroid disease 06/09/2019 History of Clostridioides difficile colitis 06/25/2019 Impingement syndrome of right shoulder 12/26/2014 Obesity, Class II, BMI 35-39.9 06/25/2019 Other specified disorder of gallbladder 04/16/2008 Primary insomnia 06/25/2019 RLS (restless legs syndrome) 11/05/2019 Well adult exam 06/09/2019 Previous Surgical History PAST SURGICAL HISTORY Procedure Laterality Date ABDOMINAL SURGERY HX COLONOSCOPY GEN ANES 09/22/2020 Repeat in 3 years DIAGNOSTIC ARTHROSCOPY SHOULDER +- SYNOVIAL BX Right 12/25/2014 Right shoulder arthroscopic labral repair SAD, Lysis of adhesions and manipulation under anethesia EYE SURGERY HX KNEE SURGERY HX Left 04/01/2022 LAPS SURG CHOLECYSTECTOMY W/CHOLANGIOGRAPHY 05/01/2008 Normal IOC LIG/TRNSXJ FLP TUBE ABDL/VAG APPR UNI/BI 1994 Tubal ligation PAST SURGICAL HISTORY OF Left 2017 labreal repair PAST SURGICAL HISTORY OF Right 12/25/2014 labreal repair Family History FAMILY HISTORY Problem Relation Age of Onset Pancreatic Cancer Mother other (AAA) Father GI Sister GB Thyroid Sister other (RLS) Sister GI Sister GB other (RLS) Sister Coronary Artery Disease Brother Heart Brother pacemaker Hypertension Brother Hyperlipidemia Brother other (kidney cancer) Brother Hypertension Brother Hyperlipidemia Brother other (AAA) Brother Hypertension Brother Alzheimer's Disease No Family History Colon Cancer No Family History Prostate Cancer No Family History Breast Cancer No Family History Ovarian cancer No Family History Diabetes No Family History Kidney Disease No Family History Seizures No Family History Stroke No Family History Patient Allergies ALLERGIES Allergen Reactions Avocado Anaphylaxis Current Medications Current Outpatient Medications on File Prior to Visit Medication Sig topiramate (TOPAMAX) 25 mg tablet TAKE 1 TABLET BY MOUTH DAILY AT BEDTIME FOR 7 DAYS, THEN 2 TABLETS DAILY AT BEDTIME. clobetasol (TEMOVATE) 0.05 % ointment TO AFFECTED AREA.twice daily x 4 weeks then at night x 4 weeks then every other day x 4 weeks then taper to 1-2 times/week. loratadine (CLARITIN) 10 mg tablet Take 1 tablet by mouth once daily. As needed. No current facility-administered medications on file prior to visit. Social History Social History Tobacco Use Smoking status: Former Current packs/day: 0.00 Types: Cigarettes Quit date: 05/02/2007 Years since quittin.3 Smokeless tobacco: Never Vaping Use Vaping status: Never Used Substance Use Topics Alcohol use: Yes Comment: occasional 1-2 per month Drug use: No Review of Symptoms REVIEW OF SYSTEMS GENERAL: No weight loss, malaise or fevers HEENT: No changes in hearing or vision, no nose bleeds or other nasal problems NECK: Negative for lumps, goiter, pain and significant neck swelling RESPIRATORY: Negative for cough, hemoptysis, wheezing, COPD, dyspnea or shortness of breath CARDIOVASCULAR: Negative for chest pain, leg swelling, hypertension, CHF or palpitations GI: Negative for abdominal discomfort, blood in stools or black s (more content not included)... [facility] 08-16-2024 History of Presen t illness Narrative Chief Complaint Patient presents with: Yearly Exam HPI Elisabeth Hendricks is a 59 year old female who presents here today for physical. Patient with RLS, elevated A1c, former smoker, RLS, insomnia, obesity, and those as below. Restless Leg Syndrome: - Currently managed with medication which is effective. - Uses an additional 1 mg dose PRN for long rides (>45 minutes) and flights. - Does not use the extra dose daily - 2 mg dose at night helps with sleep by relaxing legs. Weight Management: - Has lost 3 lbs since May while taking Topamax. - Frustrated with lack of significant weight loss; expected to lose 40 lbs by September. - Exercises 3-4 days a week, including walking a mile and doing stretching exercises. - Reports hip pain during exercise but continues to walk. - Diet includes high protein and fiber, with limited carbs and sugars. - Eats two hard-boiled eggs and V8 juice for breakfast, leftovers for lunch, and healthy dinners. - Rarely eats fast food or desserts; drinks alcohol occasionally. - has lost significant weight since being diagnosed with diabetes and starting Ozempic and metformin. - Denies smoking or e-cigarette use. Preventive Care: - Scheduled for a colonoscopy on September 03. - Mammogram scheduled for this afternoon. Past medical history, appointments, medications, allergies reviewed. Previous Medical History PAST MEDICAL HISTORY Diagnosis Date Adhesive capsulitis of right shoulder 12/26/2014 Arthritis of right knee 06/25/2019 Bankart lesion of right shoulder 12/26/2014 Diverticulosis of colon 06/25/2019 Ex-smoker 06/09/2019 Started at age 15 up to 1 PPD and quit at 33 Family history of thyroid disease 06/09/2019 History of Clostridioides difficile colitis 06/25/2019 Impingement syndrome of right shoulder 12/26/2014 Obesity, Class II, BMI 35-39.9 06/25/2019 Other specified disorder of gallbladder 04/16/2008 Primary insomnia 06/25/2019 RLS (restless legs syndrome) 11/05/2019 Well adult exam 06/09/2019 Previous Surgical History PAST SURGICAL HISTORY Procedure Laterality Date ABDOMINAL SURGERY HX COLONOSCOPY GEN ANES 09/22/2020 Repeat in 3 years DIAGNOSTIC ARTHROSCOPY SHOULDER +- SYNOVIAL BX Right 12/25/2014 Right shoulder arthroscopic labral repair SAD, Lysis of adhesions and manipulation under anethesia EYE SURGERY HX KNEE SURGERY HX Left 04/01/2022 LAPS SURG CHOLECYSTECTOMY W/CHOLANGIOGRAPHY 05/01/2008 Normal IOC LIG/TRNSXJ FLP TUBE ABDL/VAG APPR UNI/BI 1994 Tubal ligation PAST SURGICAL HISTORY OF Left 2017 labreal repair PAST SURGICAL HISTORY OF Right 12/25/2014 labreal repair Family History FAMILY HISTORY Problem Relation Age of Onset Pancreatic Cancer Mother other (AAA) Father GI Sister GB Thyroid Sister other (RLS) Sister GI Sister GB other (RLS) Sister Coronary Artery Disease Brother Heart Brother pacemaker Hypertension Brother Hyperlipidemia Brother other (kidney cancer) Brother Hypertension Brother Hyperlipidemia Brother other (AAA) Brother Hypertension Brother Alzheimer's Disease No Family History Colon Cancer No Family History Prostate Cancer No Family History Breast Cancer No Family History Ovarian cancer No Family History Diabetes No Family History Kidney Disease No Family History Seizures No Family History Stroke No Family History Patient Allergies ALLERGIES Allergen Reactions Avocado Anaphylaxis Current Medications Current Outpatient Medications on File Prior to Visit Medication Sig topiramate (TOPAMAX) 25 mg tablet TAKE 1 TABLET BY MOUTH DAILY AT BEDTIME FOR 7 DAYS, THEN 2 TABLETS DAILY AT BEDTIME. clobetasol (TEMOVATE) 0.05 % ointment TO AFFECTED AREA.twice daily x 4 weeks then at night x 4 weeks then every other day x 4 weeks then taper to 1-2 times/week. loratadine (CLARITIN) 10 mg tablet Take 1 tablet by mouth once daily. As needed. No current facility-administered medications on file prior to visit. Social History Social History Tobacco Use Smoking status: Former Current packs/day: 0.00 Types: Cigarettes Quit date: 05/02/2007 Years since quittin.3 Smokeless tobacco: Never Vaping Use Vaping status: Never Used Substance Use Topics Alcohol use: Yes Comment: occasional 1-2 per month Drug use: No Review of Symptoms REVIEW OF SYSTEMS GENERAL: No weight loss, malaise or fevers HEENT: No changes in hearing or vision, no nose bleeds or other nasal problems NECK: Negative for lumps, goiter, pain and significant neck swelling RESPIRATORY: Negative for cough, hemoptysis, wheezing, COPD, dyspnea or shortness of breath CARDIOVASCULAR: Negative for chest pain, leg swelling, hypertension, CHF or palpitations GI: Negative for abdominal discomfort, blood in stools or black stools, change in bowel habit, heart burn, nausea, vomiting : No history of dysuria, frequency or incontinence MUSCULOSKELETAL: Negative for joint pain or swelling, back pain or muscle pain SKIN: Negative for lesions, rash, and itching PSYCH: Negative for sleep disturbance, mood disorder and recent psychosocial stressors HEMATOLOGY/LYMPHOLOGY: Negative for prolonged bleeding, bruising easily or swollen nodes ENDOCRINE: Negative for cold or heat intolerance, polyuria, polydipsia and goiter NEURO: No history of headaches, syncope, paralysis, seizures or tremors SEE HPI EXAM: BP 120/88 (BP Site: Left Arm, BP Position: Sitting, BP Cuff Size: Large Adult) Pulse 84 Temp 36.6 C (97.8 F) Resp 18 Ht 161 cm (5' 3.39) Wt 107.5 kg (237 lb) LMP 06/02/2021 (Approximate) SpO2 99% BMI 41.47 kg/m General Appearance: Well appearing, alert, in no acute distress, well-hydrated, well nourished.. Skin: Skin color, texture, turgor normal, no suspicious rashes or lesions. Head: Normocephalic, no masses, lesions, tenderness or abnormalities. Eyes: Anicteric sclera. Pupils are equally round and reactive to light. Extraocular movements are intact. . Ears: External ears normal, canals clear, TMs pearly maria. Nose/Sinuses: Nares normal, septum midline, mucosa normal, no drainage or sinus tenderness. Oropharynx: Lips, mucosa, and tongue normal, teeth and gums normal, oropharynx normal. Neck: Supple, no adenopathy; thyroid symmetric, normal size, no bruits. Lungs: Lungs clear to auscultation. No wheezing, rhonchi, rales.. Heart: RRR without murmur, gallop, or rubs. No ectopy. Abdomen: Normal abdominal exam, Abdomen soft, non-tender. Bowel sounds normal. No masses, organomegaly. Extremities: No deformities, edema, skin discoloration, clubbing or cyanosis. Good capillary refill. . Peripheral Pulses: Normal. Neurologic: Gait normal. Reflexes normal and symmetric. Sensation grossly intact.. Health Maintenance List Hepatitis B Vaccine(1 of 3 - 19+ 3-dose series) Never done Mammogram Screening due on 08/07/2022 Colorectal Cancer Screening due on 09/23/2023 Influenza Vaccine(1) due on 10/29/2024 Shingrix Vaccine(1 of 2) due on 08/16/2025 Covid-19 Vaccine(3 - 2023- season) due on 08/16/2025 Pneumococcal Vaccine: 50+(1 of 1 - PCV) due on 08/16/2025 DTaP,Tdap,Td Vaccine(3 - Td or Tdap) due on 10/04/2024 Cervical Cancer Screening due on 08/06/2025 Depression Screening due on 08/16/2025 Anxiety Screening due on 08/16/2025 Diabetes Screening due on 05/12/2027 Lipid Screening due on 08/15/2028 Hepatitis C Screening Discontinued HIV Screening Discontinued Data reviewed N/a Assessment and Plan 1. Well adult exam (Z00.00) - Comprehensive physical examination performed; no acute abnormalities noted. - Refilled pramipexole 2 mg PO qHS and 1 mg PO PRN for restless leg syndrome. - Ordered labs including hemoglobin A1c and lipid panel. - Follow-up in one year or as needed. 2. RLS (restless legs syndrome) (G25.81) - Symptoms well-controlled with pramipexole 2 mg PO qHS and 1 mg PO PRN for long car rides or flights. - Refilled pramipexole prescriptions. 3. Obesity, Class II, BMI 35-39.9 (E66.812) - Current management with Topamax has resulted in minimal weight loss. - Discussed dietary modifications including increasing protein intake to 20-30 grams per meal and incorporating resistance training exercises. - Placed consult for weight management with Dr. Mattson and Chelsey Agosto at the [facility] in [place]. 4. Elevated hemoglobin A1c (R73.09) - Last recorded A1c was 5.9%. - Ordered repeat hemoglobin A1c to monitor glycemic control. 5. Screening for depression (Z13.31) - No signs of depression noted during the visit. 6. Encounter for screening examination for other mental health and behavioral disorders (Z13.39) normal screening 7. Family history of thyroid disease (Z83.49) TSH ordered 8. History of colonic polyps (Z86.0100) - Colonoscopy scheduled with Dr. Haddad on September 03. 9. Encounter for lipid screening for cardiovascular disease (Z13.220) - Ordered lipid panel. Mady Covarrubias PA-C Recording using [employer] software for draft documentation of the visit was discussed with the patient/authorized petroleum products sales representative; all questions welcomed and answered. Patient/authorized petroleum products sales representative agreed to proceed documented in this encounter [facility] 07-30-2024 Telephone encounter Note Images from the original note were not included. Most recent Endocrinology visit: Last encounter Visit on 05/07/2024 (with Shan Vargas) 05/07/2024 in [facility] with SHAN VARGAS for Class 3 severe obesity with serious comorbidity and body mass index (BMI) of 40.0 to 44.9 in adult, unspecified obesity type (HCC) No future appt scheduled in ENDO. Please route to local appt/scheduling pool if appt is needed? Requested Prescriptions Pending Prescriptions Disp Refills topiramate (TOPAMAX) 25 mg tablet [Pharmacy Med Name: TOPIRAMATE 25 MG TABLET] 187 tablet 0 Sig: TAKE 1 TABLET BY MOUTH DAILY AT BEDTIME FOR 7 DAYS, THEN 2 TABLETS DAILY AT BEDTIME. Latest Ref Rng & Units 05/12/2024 08/16/2023 08/13/2022 Hemoglobin A1C Hemoglobin A1C 4.3 - 5.6 % 5.9 5.6 5.9 Latest Ref Rng & Units 08/16/2023 08/13/2022 08/03/2021 TSH TSH 0.270 - 4.200 mIU/L 1.330 1.230 2.280 Free T3: None on file in the last 12 months Free T4: None on file in the last 12 months Thyroglobulin: None on file in the last 12 months Vitamin D: None on file in the last 12 months Hematocrit: None on file in the last 12 months Latest Ref Rng & Units 08/16/2023 11/12/2022 08/13/2022 Creatinine Creatinine 0.58 - 0.96 mg/dL 0.66 0.73 0.73 Latest Ref Rng & Units 08/16/2023 11/12/2022 08/13/2022 eGFR EGFR >=60 mL/min/1.73m 102 97 97 Latest Ref Rng & Units 08/16/2023 11/12/2022 08/13/2022 Potassium Potassium 3.7 - 5.1 mmol/L 4.1 3.6 4.1 Testosterone: None on file in the last 12 months IGF: None on file in the last 12 months Prolactin: None on file in the last 12 months [facility] 07-30-2024 Miscellaneous Notes Images from the original note were not included. Most recent Endocrinology visit: Last encounter Visit on 05/07/2024 (with Shan Vargas) 05/07/2024 in [facility] with SHAN VARGAS for Class 3 severe obesity with serious comorbidity and body mass index (BMI) of 40.0 to 44.9 in adult, unspecified obesity type (HCC) No future appt scheduled in ENDO. Please route to local appt/scheduling pool if appt is needed? Requested Prescriptions Pending Prescriptions Disp Refills topiramate (TOPAMAX) 25 mg tablet [Pharmacy Med Name: TOPIRAMATE 25 MG TABLET] 187 tablet 0 Sig: TAKE 1 TABLET BY MOUTH DAILY AT BEDTIME FOR 7 DAYS, THEN 2 TABLETS DAILY AT BEDTIME. Latest Ref Rng & Units 05/12/2024 08/16/2023 08/13/2022 Hemoglobin A1C Hemoglobin A1C 4.3 - 5.6 % 5.9 5.6 5.9 Latest Ref Rng & Units 08/16/2023 08/13/2022 08/03/2021 TSH TSH 0.270 - 4.200 mIU/L 1.330 1.230 2.280 Free T3: None on file in the last 12 months Free T4: None on file in the last 12 months Thyroglobulin: None on file in the last 12 months Vitamin D: None on file in the last 12 months Hematocrit: None on file in the last 12 months Latest Ref Rng & Units 08/16/2023 11/12/2022 08/13/2022 Creatinine Creatinine 0.58 - 0.96 mg/dL 0.66 0.73 0.73 Latest Ref Rng & Units 08/16/2023 11/12/2022 08/13/2022 eGFR EGFR >=60 mL/min/1.73m 102 97 97 Latest Ref Rng & Units 08/16/2023 11/12/2022 08/13/2022 Potassium Potassium 3.7 - 5.1 mmol/L 4.1 3.6 4.1 Testosterone: None on file in the last 12 months IGF: None on file in the last 12 months Prolactin: None on file in the last 12 months documented in this encounter [facility] 07-03-2024 Note Patient Outreach (FA MPWS) ELISABETH HENDRICKS ([id number]) 1965 F Date Time Provider Department 07/03/24 [facility] During your visit today, we recorded the following information about you: Allergies As of Date: 07/03/2024 Noted Allergy Reaction AVOCADO 12/05/2014 10 - Anaphylaxis Date Reviewed: 08/16/2023 Reviewed by: Elisabeth Leonard LPN - Fully Assessed Visit Diagnosis:Encounter for screening mammogram for breast cancer [Z12.31] Order(s):BEATRICE SCREENING W WALTER [[id number]] Order #: [id number] FUTURE Prescriptions as of 08/03/2024 - topiramate (TOPAMAX) 25 mg tablet TAKE 1 TABLET BY MOUTH DAILY AT BEDTIME FOR 7 DAYS, THEN 2 TABLETS DAILY AT BEDTIME. - rOPINIRole (REQUIP) 2 mg tablet Take 1 tablet by mouth daily at bedtime. - rOPINIRole (REQUIP) 1 mg tablet Take one tab 1/2 hr before long vehicle rides as needed. - clobetasol (TEMOVATE) 0.05 % ointment TO AFFECTED AREA.twice daily x 4 weeks then at night x 4 weeks then every other day x 4 weeks then taper to 1-2 times/week. - loratadine (CLARITIN) 10 mg tablet Take 1 tablet by mouth once daily. As needed. Problem List As Of Date 07/03/2024 Noted Resolved Well adult exam [Z00.00] 06/09/2019 Ex-smoker [Z87.891] 06/09/2019 Family history of thyroid disease [Z83.49] 06/09/2019 Encounter for screening for diabetes mellitus [*06/09/2019 Encounter for screening mammogram for breast ca*06/09/2019 Obesity, Class II, BMI 35-39.9 [E66.812] 06/25/2019 History of Clostridioides difficile colitis [Z8*06/25/2019 Primary insomnia [F51.01] 06/25/2019 Diverticulosis of colon [K57.30] 06/25/2019 Arthritis of right knee [M17.11] 06/25/2019 RLS (restless legs syndrome) [G25.81] 11/05/2019 Screening for colon cancer [Z12.11] 07/30/2020 Greater trochanteric bursitis of left hip [M70.*07/30/2020 Elevated hemoglobin A1c [R73.09] 08/07/2020 Arthralgia of left knee [M25.562] 08/03/2021 Family history of pancreatic cancer [Z80.0] 08/13/2022 History of colonic polyps [Z86.0100] 08/16/2023 Encounter Status:Closed by CHARISSE GARCIA on 08/03/24 [facility] 06-28-2024 Telephone encounter Note Prescription Refill Information The patient has been identified by name and date of : Yes Caregiver verified no other encounters exist for this prescription request: Yes Caregiver confirmed with patient/requestor that no other refills are due, in the near future, with this provider at this time: Yes The last office visit in the department: 08/16/23 Does the patient have a future office visit with this provider/department: Yes Requested Prescriptions Pending Prescriptions Disp Refills rOPINIRole (REQUIP) 2 mg tablet 90 tablet 3 Sig: Take 1 tablet by mouth daily at bedtime. Feroz Solomon LPN June 28, 2024 10:45 AM [facility] 06-28-2024 Miscellaneous Notes Prescription Refill Information The patient has been identified by name and date of : Yes Caregiver verified no other encounters exist for this prescription request: Yes Caregiver confirmed with patient/requestor that no other refills are due, in the near future, with this provider at this time: Yes The last office visit in the department: 08/16/23 Does the patient have a future office visit with this provider/department: Yes Requested Prescriptions Pending Prescriptions Disp Refills rOPINIRole (REQUIP) 2 mg tablet 90 tablet 3 Sig: Take 1 tablet by mouth daily at bedtime. Feroz Solomon LPN June 28, 2024 10:45 AM documented in this encounter [facility] 06-28-2024 Evaluation note Diagnosis Onset Date Resolution Bloating acute June 28, 2024 7:06am GERD (gastroesophageal reflux disease) acute June 28, 025 7:06am History of colon polyps acute June 28 7:06am Nausea acute June 28, 2024 7:06am Bloating acute September 03, 2024 5:24am GERD (gastroesophageal reflux disease) acute September 03, 2024 5: 24am History of colon polyps acute September 03, 2024 5: 24am Nausea acute September 03, 2024 5:24am GERD (gastroesophageal reflux disease) acute September 21, 2024 6 :43am Loose stools acute September 21 6:43am [facility] Work Phone: [phone]) 513-990801-20-2025 Telephone encounter Note* Telephone Encounter - Shantelle Roland RN - 05/21/2024 2:07 PM EST Last OV: 05/07/2024 Follow up: -- 1-2 months [facility]01-20-2025 Miscellaneous Notes* Telephone Encounter - Shantelle Roland RN - 05/21/2024 2:07 PM EST Last OV: 05/07/2024 Follow up: -- 1-2 months [facility] Instructions* Patient Instructions* Shan Vargas MD - 05/07/2024 4:26 PM EST WEIGHT MANAGEMENT PROGRAM Thank you for seeing me in [facility]. Please schedule your follow-up appointment: -- Call Center: [phone] or [phone] Please call this number to make your follow up appointment. If you are on [facility] medications that must be filled by a certain date, please notify person at the Call Center to ensure that you are scheduled within the required timeframe. -- Dietitian: [phone] Please call this number to make your appointment. -- Exercise Physiology: To schedule a Free Exercise Consult to learn about our Exercise Physiology services please schedulethrough [employer] Ticket Scheduling. For ticket scheduling in [employer], go to Your Menu > Scheduling Tickets, and click on Schedule icon to schedule your appointment. -- Shared medical appointment patient coordinator: [phone] To Cancel an appointment, please choose one of the following: - Call the Appointment Call Center at [phone] or [phone] - From [employer], Go to Appointments - Cancel Appts FOR THE WEIGHT MANAGEMENT TEAM - instructions Use call center number to schedule follow up appointment for weight management when seeing patient virtually Instruct the patient to go to front desk auxiliary to schedule follow up appointment Alternatively send a message to [facility] to contact the patient and schedule appointment: P ENDO APPT [facility] ([id number]) Shared Medical Appointment: send a message directly to [facility] to schedule SMA Thank you for choosing the [facility] Department of Endocrinology, Diabetes and Metabolism. Start Topiramate 25 mg po daily at bedtime for 7 days then increase to 50 mg daily. S/e may includesleepiness, brain fog, or tingling of the face. S/e usually subside in 2-3 weeks. documented in this encounterFire[facility]25 NoteHNO ID: [id number] Author: SHAN VARGAS MD Service: ? Author Type: Physician Type: Progress Notes Filed: 05/22/2024 12:34 Note Text: [facility] CONSULT - NEW VISIT I have communicated my name and active licensure. The patient's identity and physical location were verified at the time of this visit. 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 REASON OF VISIT: weight management/obesity and management of its comorbidities REFERRING PHYSICIAN: Self Consultation requested for an opinion regarding weight management, and my final recommendations will be communicated back to the requesting physician by way of shared medical record or letter via [place] mail. HISTORY OF PRESENT ILLNESS: Patient is a 59 year old female who presents for evaluation of obesity/weight management. Comorbidities: RLS, elevated A1c, former smoker, insomnia Pertinent medications causing weight gain: NA Pertinent medications causing weight loss: NA Patient goals: Prior Medications for weight Loss, side-effects, and/or contra-indications: NA WEIGHT HISTORY AND TRAJECTORY: Previous attempt for weight loss: eating healthy lost weigh tin 2022, went down to 213 but regained weight (more sedentary work ) Current weight: 240 lbs Lifestyle Factors Diet and Eating behaviors 24h food recall: -- B: skips -- L: left over -- D: chicken or pork salad -- S: sweets -- sugary beverages: --Can improve reducing sugar Appetite Control -- --appetite control/portion control: she feels she overeats -- cravings sweets -- binge eating: n -- late night eating: n -- emotional eating: n Exercise -- no -- physical limitations: no 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 Snoring Do you snore loudly (louder than talking or loud enough to be heard through closed doors)? NO 2. Tired Do you often feel tired, fatigued, or sleepy during daytime? NO 3. Observed Has anyone observed you stop breathing during your sleep? NO 4. Blood Pressure Do you have or are you being treated for high blood pressure? NO 5. BMI BMI more than 35 kg/m2? 41 YES 6. Age Age over 50 yr old? 59 year old YES 7. Neck circumference Neck circumference greater than 40 cm? NO 8. Gender Gender male? female NO * Neck circumference is measured by staff High risk of FELISHA: answering yes to three or more items Low risk of FELISHA: answering yes to less than three items Stress -- manageable Social History Alcohol: y Smoking: Tobacco Use: .5 packs/day Quit 05/02/2007. Types: Cigarettes Recreational Drugs: n Patient Entered Data No data to display No data to display No data to display No data to display No data to display No data to display No data to display Review of Systems MEDICATIONS: Current Outpatient Medications on File Prior to Visit Medication Sig rOPINIRole (REQUIP) 2 mg tablet Take 1 tablet by mouth daily at bedtime. rOPINIRole (REQUIP) 1 mg tablet Take one tab 1/2 hr before long vehicle rides as needed. clobetasol (TEMOVATE) 0.05 % ointment TO AFFECTED AREA.twice daily x 4 weeks then at night x 4 weeks then every other day x 4 weeks then taper to 1-2 times/week. loratadine (CLARITIN) 10 mg tablet Take 1 tablet by mouth once daily. As needed. No current facility-administered medications on file prior to visit. SIGNIFICANT PAST MEDICAL AND SURGICAL HISTORY: PAST MEDICAL HISTORY Diagnosis Date Adhesive capsulitis of right shoulder 12/26/2014 Arthritis of right knee 06/25/2019 Bankart lesion of right shoulder 12/26/2014 Diverticulosis of colon 06/25/2019 Ex-smoker 06/09/2019 Started at age 15 up to 1 PPD and quit at 33 Family history of thyroid disease 06/09/2019 History of Clostridioides difficile colitis 06/25/2019 Impingement syndrome of right shoulder 12/26/2014 Obesity, Class II, BMI 35-39.9 06/25/2019 Other specified disorder of gallbladder 04/16/2008 Primary insomnia 06/25/2019 RLS (restless legs syndrome) 11/05/2019 Well adult exam 06/09/2019 PAST SURGICAL HISTORY Procedure Laterality Date ABDOMINAL SURGERY HX COLONOSCOPY GEN ANES 09/22/2020 Repeat in 3 years DIAGNOSTIC ARTHROSCOPY SHOULDER +- SYNOVIAL BX Right 12/25/2014 Right shoulder arthroscopic labral repair SAD, Lysis of adhesions and manipulation under anethesia EYE SURGERY HX KNEE SURGERY HX Left 04/01/2022 LAPS SURG CHOLECYSTECTOMY W/CHOLANGIOGRAPHY 05/01/2008 Normal IOC LIG/TRNSXJ FLP TUBE ABDL/VAG APPR UNI/BI 1994 Tubal ligation PAST SURGICAL HISTORY OF Left 2017 labreal repair PAST SURGICAL HISTORY OF Right 12/25/2014 labreal repair FAMILY HISTORY: FAMILY HISTORY Problem Relation Age of Onset Pancreatic Cancer Mother other (AAA) Father GI Sister G (more content not included)...[facility]01-06-[facility]25 History of Present illness Narrative* Shan Vargas MD - 05/07/2024 3:51 PM EST Images from the original note were not included. [facility] - NEW VISIT I have communicated my name and active licensure. The patient's identity and physical location wereverified at the time of this visit. 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 REASON OF VISIT: weight management/obesity and management of its comorbidities REFERRING PHYSICIAN: Self Consultation requested for an opinion regarding weight management, and my final recommendations will be communicated back to the requesting physician by way of shared medical record or letter via [place] mail. HISTORY OF PRESENT ILLNESS: Patient is a 59 year old female who presents for evaluation of obesity/weight management. Comorbidities: RLS, elevated A1c, former smoker, insomnia Pertinent medications causing weight gain: NA Pertinent medications causing weight loss: NA Patient goals: Prior Medications for weight Loss, side-effects, and/or contra-indications: NA WEIGHT HISTORY AND TRAJECTORY: Previous attempt for weight loss: eating healthy lost weigh tin 2022, went down to 213 but regainedweight (more sedentary work ) Current weight: 240 lbs Lifestyle Factors Diet and Eating behaviors 24h food recall: -- B: skips -- L: left over -- D: chicken or pork salad -- S: sweets -- sugary beverages: --Can improve reducing sugar Appetite Control -- --appetite control/portion control: she feels she overeats -- cravings sweets -- binge eating: n -- late night eating: n -- emotional eating: n Exercise -- no -- physical limitations: no 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 Snoring Do you snore loudly (louder than talking or loud enough to be heard through closed doors)? NO 2. Tired Do you often feel tired, fatigued, or sleepy during daytime? NO 3. Observed Has anyone observed you stop breathing during your sleep? NO 4. Blood Pressure Do you have or are you being treated for high blood pressure? NO 5. BMI BMI more than 35 kg/m2? 41 YES 6. Age Age over 50 yr old? 59 year old YES 7. Neck circumference Neck circumference greater than 40 cm? NO 8. Gender Gender male? female NO * Neck circumference is measured by staff High risk of FELISHA: answering yes to three or more items Low risk of FELISHA: answering yes to less than three items Stress -- manageable Social History Alcohol: y Smoking: Tobacco Use: .5 packs/day Quit 05/02/2007. Types: Cigarettes Recreational Drugs: n Patient Entered Data No data to display No data to display No data to display No data to display No data to display No data to display No data to display Review of Systems MEDICATIONS: Current Outpatient Medications on File Prior to Visit Medication Sig rOPINIRole (REQUIP) 2 mg tablet Take 1 tablet by mouth daily at bedtime. rOPINIRole (REQUIP) 1 mg tablet Take one tab 1/2 hr before long vehicle rides as needed. clobetasol (TEMOVATE) 0.05 % ointment TO AFFECTED AREA.twice daily x 4 weeks then at night x 4 weeks then every other day x 4 weeks then taper to 1-2 times/week. loratadine (CLARITIN) 10 mg tablet Take 1 tablet by mouth once daily. As needed. No current facility-administered medications on file prior to visit. SIGNIFICANT PAST MEDICAL AND SURGICAL HISTORY: PAST MEDICAL HISTORY Diagnosis Date Adhesive capsulitis of right shoulder 12/26/2014 Arthritis of right knee 06/25/2019 Bankart lesion of right shoulder 12/26/2014 Diverticulosis of colon 06/25/2019 Ex-smoker 06/09/2019 Started at age 15 up to 1 PPD and quit at 33 Family history of thyroid disease 06/09/2019 History of Clostridioides difficile colitis 06/25/2019 Impingement syndrome of right shoulder 12/26/2014 Obesity, Class II, BMI 35-39.9 06/25/2019 Other specified disorder of gallbladder 04/16/2008 Primary insomnia 06/25/2019 RLS (restless legs syndrome) 11/05/2019 Well adult exam 06/09/2019 PAST SURGICAL HISTORY Procedure Laterality Date ABDOMINAL SURGERY HX COLONOSCOPY GEN ANES 09/22/2020 Repeat in 3 years DIAGNOSTIC ARTHROSCOPY SHOULDER +- SYNOVIAL BX Right 12/25/2014 Right shoulder arthroscopic labral repair SAD, Lysis of adhesions and manipulation under anethesia EYE SURGERY HX KNEE SURGERY HX Left 04/01/2022 LAPS SURG CHOLECYSTECTOMY W/CHOLANGIOGRAPHY 05/01/2008 Normal IOC LIG/TRNSXJ FLP TUBE ABDL/VAG APPR UNI/BI 1994 Tubal ligation PAST SURGICAL HISTORY OF Left 2017 labreal repair PAST SURGICAL HISTORY OF Right 12/25/2014 labreal repair FAMILY HISTORY: FAMILY HISTORY Problem Relation Age of Onset Pancreatic Cancer Mother other (AAA) Father GI Sister GB Thyroid Sister other (RLS) Sister GI Sister GB other (RLS) Sister Coronary Artery Disease Brother Heart Brother pacemaker Hypertension Brother Hyperlipidemia Brother other (kidney cancer) Brother Hypertension Brother Hyperlipidemia Brother other (AAA) Brother Hypertension Brother Alzheimer's Disease No Family History Colon Cancer No Family History Prostate Cancer No Family History Breast Cancer No Family History Ovarian cancer No Family History Diabetes No Family History Kidney Disease No Family History Seizures No Family History Stroke No Family History SOCIAL HISTORY: Social History Tobacco Use Smoking status: Former Current packs/day: 0.00 Types: Cigarettes Quit date: 05/02/2007 Years since quittin.0 Smokeless tobacco: Never Substance Use Topics Alcohol use: Yes Comment: occasional 1-2 per month Drug use: No PHYSICAL EXAM: Vital Signs LMP 06/02/2021 General: no acute distress, feeling well Neurologic: alert and oriented to time, space and place Skin: no dermopathy Psychiatry: normal affect PERTINENT LABORATORY AND IMAGING: All pertinent laboratory results were reviewed. Please see HPI for further details. Lab Results Component Value Date HBA1C 5.6 08/16/2023 HBA1C 5.9 (H) 08/13/2022 HBA1C 5.8 (H) 08/03/2021 HBA0 114 08/16/2023 HBA0 123 08/13/2022 HBA0 120 08/03/2021 TSH 1.330 08/16/2023 TSH 1.230 08/13/2022 TSH 2.280 08/03/2021 FREET4 1.5 06/09/2019 Lab Results Component Value Date TPROT 7.1 08/16/2023 TPROT 6.9 11/12/2022 TPROT 7.1 08/13/2022 ALB 4.3 08/16/2023 ALB 4.4 11/12/2022 ALB 4.3 08/13/2022 CA 9.6 08/16/2023 CA 9.0 11/12/2022 CA 9.4 08/13/2022 TBILI 0.3 08/16/2023 TBILI 0.4 11/12/2022 TBILI 0.3 08/13/2022 ALKPHOS 119 08/16/2023 ALKPHOS 107 11/12/2022 ALKPHOS 126 (H) 08/13/2022 AST 23 08/16/2023 AST 37 (H) 11/12/2022 AST 20 08/13/2022 ALT 15 08/16/2023 ALT 52 (H) 11/12/2022 ALT 20 08/13/2022 GLUC 90 08/16/2023 GLUC 89 11/12/2022 GLUC 108 (H) 08/13/2022 BUN 10 08/16/2023 BUN 8 11/12/2022 BUN 12 08/13/2022 CREAT 0.66 08/16/2023 CREAT 0.73 11/12/2022 CREAT 0.73 08/13/2022 NA 141 08/16/2023 NA 137 11/12/2022 NA 141 08/13/2022 K 4.1 08/16/2023 K 3.6 (L) 11/12/2022 K 4.1 08/13/2022 CHLOR 105 08/16/2023 CHLOR 102 11/12/2022 CHLOR 106 (H) 08/13/2022 CO2 23 08/16/2023 CO2 20 (L) 11/12/2022 CO2 25 08/13/2022 ANION 13 08/16/2023 ANION 15 11/12/2022 ANION 10 08/13/2022 EGFROTH 102 08/16/2023 EGFROTH 97 11/12/2022 EGFROTH 97 08/13/2022 Lab Results Component Value Date CHOL 200 (H) 08/16/2023 CHOL 191 08/13/2022 CHOL 187 08/03/2021 TG 80 08/16/2023 TG 100 08/13/2022 TG 155 (H) 08/03/2021 HDL 48 08/16/2023 HDL 49 08/13/2022 HDL 48 08/03/2021 NONHDL 152 (H) 08/16/2023 NONHDL 142 (H) 08/13/2022 NONHDL 139 (H) 08/03/2021 VLDL 16 08/16/2023 VLDL 20 08/13/2022 VLDL 31 (H) 08/03/2021 TCHDL 4.17 08/16/2023 TCHDL 3.90 08/13/2022 TCHDL 3.90 08/03/2021 LDL 136 (H) 08/16/2023 LDL 122 (H) 08/13/2022 LDL 108 (H) 08/03/2021 LDLHDL 2.83 (H) 08/16/2023 LDLHDL 2.49 08/13/2022 LDLHDL 2.25 08/03/2021 Contraindications NO Glaucoma, Hx of Kidney stones (from dehydration in 2009) , s/p tubal ligations) , Did not check today Uncontrolled HTN, CVD (CAD, stroke, arrhythmias, CHF, PAD), Hyperthyroidism,Hx of alcohol or drug abuse, Abruptly stopped alcohol, On Opioids or opioids agonists, On or within 14 days of MAOI, On Benzo, Hx of ONIEL, Hx seizures, Personal or FHx thyroid Ca or MEN, Hx of pancreatitis, Hx of gallstones, IMPRESSION/PLAN: Encounter Diagnosis ICD-10-CM 1. Obesity, Class II, BMI 35-39.9 E66.812 HEMOGLOBIN A1C topiramate (TOPAMAX) 25 mg tablet 2. Prediabetes R73.03 HEMOGLOBIN A1C topiramate (TOPAMAX) 25 mg tablet Patient comes today for evaluation of obesity and its comorbidities. Diagnosis: OBESITY CLASS 3 with a BMI of 41 Pertinent comorbidities include: RLS, elevated A1c, former smoker, insomnia . Our goal is to treat obesity to decrease long-term medical complications, comorbidities and improvelifestyle. Today discussion included obesity set point, metabolic adaptation, weight plateau, lifestyle intervention and the possibility of pharmacotherapy. Plan -- Goal: -- engage in sustainable lifestyle changes -- weight loss of 5-10 % in the next 6 months -- Lifestyle Intervention/Weight Loss Program involving dietary changes, personalized exercise program and consideration of anti-obesity medications -- Diet: -- Dietitian consult: No (deferred) -- Diet: Mediterranean --Eat 3 mindful meals per day. Include fiber (veggies) and lean protein with each meal. Aim for nutrient dense foods. Strive for at least 50% of your plate to be plant-based fiber. Aim for 90-120 grams of protein per day. Avoid ultra processed foods and artificial sweeteners. -- Appetite control and behavior changes -- stress eating -- Exercise -- discussed basic exercise recommendations (aerobic/resistance training), the role of exercise on weight loss, maintenance, and muscle mass preservation -- crocheter consult: No ( deferred) -- We recommend 150 minutes of moderate-intensity aerobic physical activity and 2 days of muscle strengthening activity, as you can tolerate it. Please refer the CDC website for examples of moderate-intensity activities. https://www.cdc.gov/physicalactivity/basics/adults/index.htm -- Sleep: -- discussed the importance of sleep hygiene -- -- Stress: -- discussed the effect of stress and its relationship with weight gain -- Weight Loss Medication/Anti-Obesity Medication: -- Medications: Topiramate Can try metformin or phentermine ( needs a follow up_ ) -- Bariatric consideration: -- BMI referral: No -- Follow up: -- 1-2 months -- Other pertinent medical comorbidities -- preDM (A1c ) - Order placed Medications to Start Taking topiramate (TOPAMAX) 25 mg tablet Take 1 tablet by mouth daily at bedtime for 7 days, THEN 2 tablets daily at bedtime. Orders Placed This Encounter Hemoglobin A1C Standing Status: Future Standing Expiration Date: 08/06/2024 topiramate (TOPAMAX) 25 mg tablet Sig: Take 1 tablet by mouth daily at bedtime for 7 days, THEN 2 tablets daily at bedtime. Dispense: 187 tablet Refill: 0 -- OTHER MEDICAL PROBLEMS/ISSUES Patient to continue to follow up with their Primary Care Provider and with other consultants regarding their other medical problems. All questions answered today. Shan Vargas MD [facility] Medical Decision Making: Problems: Moderate: 2+ stable chronic illnesses Data: Assessment requiring an independent historian(s) Risk: Moderate: Drug management Medical Decision Making Level: 4 - Moderate documented in this encounterFirelands [facility]01-[facility]25 NoteHNO ID: [id number] Author: ?, ?, ? Service: ? Author Type: ? Type: Progress Notes Filed: 06/01/2024 03:03 Note Text: Patient is scheduled for her est wellness with Mady Covarrubias 2024 [facility]01-06-2025 History of Present illness Narrative* Earline Bethea - 05/07/2024 2:57 PM EST Patient is scheduled for her est wellness with Mady Covarrubias 2024 documented in this encounterFirelands [facility]12-31-2024 Instructions* Patient Instructions* Aminta Roblero RN - 05/01/2024 1:23 PM EST COLONOSCOPY BOWEL PREPARATION INSTRUCTIONS MiraLAX Your doctor has scheduled you for a colonoscopy. To have a successful colonoscopy, you must have a clean colon, that is empty. A clean colon allows your doctor to see the entire colon & diagnose issues like polyps or cancer. For doctors, a clean colon is like driving on a abdiaziz day; a dirty colon like driving in a storm. It is very important that you follow these instructions exactly, or your colonoscopy may not be as effective, could be canceled, and you may need to do the bowel prep and colonoscopy again. TRANSPORTATION REQUIREMENTS You are receiving IV sedation. For your safety, a responsible adult escort must accompany you to and from your procedure: Your adult escort MUST be present with you at check-in for your colonoscopy. Your adult escort MUST remain in the endoscopy area until you are discharged. Your adult escort MUST transport you home once you are discharged. You are NOT allowed to operate any form of transportation (i.e. drive a car, bicycle, etc) or leavethe Endoscopy Center ALONE. It is not safe to do so. If you cannot meet these requirements, your procedure will be canceled. MEDICATION REQUIREMENTS For your safety, certain medications will need to be stopped or adjusted before you can have your procedure: BLOOD THINNERS: If you take blood thinners, such as Coumadin (warfarin), Plavix (clopidogrel), Ticlid (ticlopidine hydrochloride), Agrylin (anagrelide), Xarelto (Rivaroxaban), Pradaxa (Dabigatran), Eliquis (Apixaban), or Effient (Prasugrel), contact the physician who is prescribing these medications at least 2 weeks prior to your procedure to discuss any necessary adjustments. DIABETES: If you take medications for diabetes, your dosage may need to be adjusted. If you are being treated for diabetes with insulin, diabetic pills, or other injectable medicationsdo not take your REGULAR dose after midnight on the day of your procedure. If you are taking any other types of insulin such as Lantus, Humalog, NPH (long- acting insulin), or70/30 insulin, take half your normal dose the day before your procedure. DIABETES/WEIGHT MANAGEMENT: If you take medications for weight-loss, your dosage may need to be adjusted Contact the doctor who prescribes this medication for further instructions. If you take medications for weight-loss like semaglutide (Ozempic, Wegovy, Rybelsus), dulaglutide (Trulicity), liraglutide (Victoza, Saxenda), exenatide (Byetta, Bydureon), or lixisenatide (Adylyxin), stop your medication 1 week prior to your procedure. If you take medications like canagliflozin (Invokana), dapagliflozin (Farxiga, Forxiga), empagliflozin (Jardiance), stop your medication 3 days prior to your procedure. If you take ertugliflozin (Steglatro) stop your medication 4 days prior to your procedure. IRON: If you take iron pills, STOP them 1 week BEFORE your procedure, may resume after. OTHER MEDS: May take all other medications (including aspirin, antibiotics, water pills / diureticslike Lasix or Metolozone, blood pressure meds, etc.) at their usual scheduled time with water. DIET REQUIREMENTS The day before your colonoscopy, you may have a clear liquid diet (see below). The day of your colonoscopy, you may continue a clear liquid diet until 3 hours before your colonoscopy. Within 3 hours of your colonoscopy, take only any medications (as above) with a sip of water. Clear Liquid Diet Broth (chicken, beef or vegetable broth or bullion. Just the broth, no solids). Water Coffee or Tea (NO milk or creamer), but sugar and sugar substitutes are allowed. Clear liquids including clear, yellow, green, blue (NO red, NO orange, NO purple) Sodas / soft drinks; Gatorade or other sports drinks Fruit juice (strained; no-pulp); Roque-Aid or flavored drinks Plain Jell-O or other gelatins Popsicles or hard candy Bowel prep can work differently from person to person. Some people's bowels move slowly and they may need different instructions. Please see your doctor in office or virtually for personalized bowel prep instructions if you have: BOWEL PREPARATION (MIRALAX/GATORADE) Split Dosing Bowel Prep: This means drinking your bowel prep in two doses. Split dosing helps cleanyour colon better and makes it less likely that your procedure will be canceled. You will need to purchase the following (no prescriptions are needed): 64 ounces Gatorade, Propel, Crystal Lite or other noncarbonated clear liquid sports drink (NOT red,orange, or purple). Diabetic patients buy sugar-free, e.g. Gatorade G2 4 Dulcolax laxative tablets containing 5mg bisacodyl each (do not buy the stool softener) 8.3 oz MiraLAX (238g) powder or generic polyethylene glycol 3350 (find in laxative aisle) The day before your colonoscopy mix 64 oz of the sports drink with 8.3 oz MiraLAX (238 g) in a pitcher. Stir or shake until MiraLAX completely dissolved. Chill if desired. On the evening before your colonoscopy: 5 PM take 4 Dulcolax laxative tablets with water by mouth. 6 PM drink the first half of the Gatorade/MiraLAX solution Drink one 8-ounce glass every 15 minutes. Six hours before your colonoscopy, drink the second half of the solution. Drink one 8-ounce glass every 15 minutes. You may continue a clear liquid diet until 3 hours before your colonoscopy. Bowel prep can work differently from person to person. Some people's bowels move slowly and they may need different instructions. Please see your doctor in office or virtually for personalized bowel prep instructions if you have: Medical condition that needs special accommodations Had a poor bowel prep results or failed bowel prep attempts in the past. Had difficulty with anesthesia during the procedure. FREQUENTLY ASKED QUESTIONS Q: What if I suffer from constipation? A: Recommend taking extra laxatives to resolve your constipation days prior to entering the bowel prep day. Q: What if have had prior poor preps results in past? A: Contact your physician as you will likely need additional bowel prep instructions. Q: What if I have motility issues like Parkinson's, MS (multiple sclerosis), wheelchair dependent, etc.? or on medications that slow colonic transit times (narcotics, gabapentin, anticholinergic medications etc.) A: Contact your physician as you will likely need extra time and additional laxatives to complete your bowel prep. Q: What if I cannot drink large volume of liquid? A: Start your prep 2-3 hours earlier to allow yourself more time to complete the entire prep. Q: What if I had bariatric surgery? Do I still have to complete the entire prep? A: Yes, gastric bypass surgery involves the stomach & small bowel. You may need to drink smaller amounts, slower (may need more time to complete your bowel prep). Gastric bypass does not alter the length of your colon so you will need to complete the entire bowel prep, it may just take longer time to complete it. Q: What if I am on dialysis? A: Please consult your shoe cutter prior to scheduling to get instructions pertinent to you. In general, dialysis patients take the Golytely bowel prep and have the procedure same day of their dialysis (colonoscopy in AM, dialysis in PM). Q: How do I know if something is considered as clear liquid diet? A: If you can pour it in a glass and you can see through it, it is considered clear liquid Q: Can I eat nuts, seeds, beans, popcorn, dried fruits, vegetables & fruits that have skin peel? A: No, you will need to not eat these items starting 3 days prior to procedure. Q: Can I take Uber/Lyft/taxi/bus home? A: An adult MUST be present with you at check-in for your colonoscopy and remain in the endoscopy area until you are discharged. You can take Uber home only if this adult escort is with you at check in, remain in the endoscopy area until you are discharged, and takes the Uber with you to home. Q: Can I sleep it off here and drive myself home? A: No, you must have an adult with you at time of procedure check in, remain in the endoscopy center during your procedure, and drive you home. You cannot drive a vehicle after your procedure the rest of the day. Q: What if I can't finish my bowel prep? A: If you cannot complete your entire bowel prep, there is high likelihood that your colonoscopy will need to be rescheduled due to inadequate prep quality. documented in this encounterFire[facility]12-31-[facility]24 NotePatient Outreach (ASW[facility]) ELISABETH HENDRICKS ([id number]) 1965 F Date Time Provider Department 05/01/24 ENOC OLIVEIRA [facility] During your visit today, we recorded the following information about you: Aminta Roblero RN 05/01/2024 1:23 PM Signed COLONOSCOPY BOWEL PREPARATION INSTRUCTIONS MiraLAX? Your doctor has scheduled you for a colonoscopy. To have a successful colonoscopy, you must have a clean colon, that is empty. A clean colon allows your doctor to see the entire colon AND diagnose issues like polyps or cancer. For doctors, a clean colon is like driving on a abdiaziz day; a dirty colon like driving in a storm. It is very important that you follow these instructions exactly, or your colonoscopy may not be as effective, could be canceled, and you may need to do the bowel prep and colonoscopy again. TRANSPORTATION REQUIREMENTS You are receiving IV sedation. For your safety, a responsible adult escort must accompany you to and from your procedure: Your adult escort MUST be present with you at check-in for your colonoscopy. Your adult escort MUST remain in the endoscopy area until you are discharged. Your adult escort MUST transport you home once you are discharged. You are NOT allowed to operate any form of transportation (i.e. drive a car, bicycle, etc) or leave the Endoscopy Center ALONE. It is not safe to do so. If you cannot meet these requirements, your procedure will be canceled. MEDICATION REQUIREMENTS For your safety, certain medications will need to be stopped or adjusted before you can have your procedure: BLOOD THINNERS: If you take blood thinners, such as Coumadin (warfarin), Plavix (clopidogrel), Ticlid (ticlopidine hydrochloride), Agrylin (anagrelide), Xarelto (Rivaroxaban), Pradaxa (Dabigatran), Eliquis (Apixaban), or Effient (Prasugrel), contact the physician who is prescribing these medications at least 2 weeks prior to your procedure to discuss any necessary adjustments. DIABETES: If you take medications for diabetes, your dosage may need to be adjusted. If you are being treated for diabetes with insulin, diabetic pills, or other injectable medications do not take your REGULAR dose after midnight on the day of your procedure. If you are taking any other types of insulin such as Lantus, Humalog, NPH (long-acting insulin), or 70/30 insulin, take half your normal dose the day before your procedure. DIABETES/WEIGHT MANAGEMENT: If you take medications for weight-loss, your dosage may need to be adjusted Contact the doctor who prescribes this medication for further instructions. If you take medications for weight-loss like semaglutide (Ozempic, Wegovy, Rybelsus), dulaglutide (Trulicity), liraglutide (Victoza, Saxenda), exenatide (Byetta, Bydureon), or lixisenatide (Adylyxin), stop your medication 1 week prior to your procedure. If you take medications like canagliflozin (Invokana), dapagliflozin (Farxiga, Forxiga), empagliflozin (Jardiance), stop your medication 3 days prior to your procedure. If you take ertugliflozin (Steglatro) stop your medication 4 days prior to your procedure. IRON: If you take iron pills, STOP them 1 week BEFORE your procedure, may resume after. OTHER MEDS: May take all other medications (including aspirin, antibiotics, water pills / diuretics like Lasix or Metolozone, blood pressure meds, etc.) at their usual scheduled time with water. DIET REQUIREMENTS The day before your colonoscopy, you may have a clear liquid diet (see below). The day of your colonoscopy, you may continue a clear liquid diet until 3 hours before your colonoscopy. Within 3 hours of your colonoscopy, take only any medications (as above) with a sip of water. Clear Liquid Diet Broth (chicken, beef or vegetable broth or bullion. Just the broth, no solids). Water Coffee or Tea (NO milk or creamer), but sugar and sugar substitutes are allowed. Clear liquids including clear, yellow, green, blue (NO red, NO orange, NO purple) Sodas / soft drinks; Gatorade or other sports drinks Fruit juice (strained; no-pulp); Roque-Aid or flavored drinks Plain Jell-O or other gelatins Popsicles or hard candy Bowel prep can work differently from person to person. ? Some people's bowels move slowly and they may need different instructions. Please see your doctor in office or virtually for personalized bowel prep instructions if you have: BOWEL PREPARATION (MIRALAX/GATORADE) Split Dosing Bowel Prep: This means drinking your bowel prep in two doses. Split dosing helps clean your colon better and makes it less likely that your procedure will be canceled. You will need to purchase the following (no prescriptions are needed): 64 ounces Gatorade, Propel, Crystal Lite or other noncarbonated clear liquid sports drink (NOT red, orange, or purple). Diabetic patients buy sugar-free, (more content not included)...[facility]04-19-2024 Miscellaneous Notes* Telephone Encounter - Demetria Drake LPN - 08/19/2023 9:25 AM EDT Spoke with pt and information listed below given. Pt verbalizes understanding. Demetria Drake LPN * Telephone Encounter - Elisabeth Leonard LPN - 08/19/2023 8:49 AM EDT Left message to call office. 08/19/2023 8:49 AM. Elisabeth Leonard LPN * Telephone Encounter - Indira Tyson MA - 08/17/2023 11:57 AM EDT Left message for patient to contact office. Indira Tyson MA * Telephone Encounter - Mady Covarrubias PA-C - 08/17/2023 11:43 AM EDT Let patient know that overall labs were normal. LDL- Bad cholesterol- did increase slightly. 136 with goal under 130. Watch fats in diet. Otherwise everything is normal. Mady Covarrubias PA-C documented in this encounterFirelands [facility]04-16-2024 History of Present illness Narrative* Mady Covarrubias PA-C - 08/16/2023 1:21 PM EDT Chief Complaint Patient presents with: Yearly Exam HPI Elisabeth Hendricks is a 58 year old female who presents here today for physical. Patient with RLS, elevated A1c, former smoker, RLS, insomnia, obesity, and those as below. No concerns today. Last 6 Encounter Wt Readings: Date: Wt: 08/16/2023 98.4 kg (217 lb) 11/12/2022 99.8 kg (220 lb) 08/13/2022 104.3 kg (230 lb) 08/03/2021 101.2 kg (223 lb) 04/08/2021 101.2 kg (223 lb) 11/11/2020 96.2 kg (212 lb) Past medical history, appointments, medications, allergies reviewed. Previous Medical History PAST MEDICAL HISTORY Diagnosis Date Adhesive capsulitis of right shoulder 12/26/2014 Arthritis of right knee 06/25/2019 Bankart lesion of right shoulder 12/26/2014 Diverticulosis of colon 06/25/2019 Ex-smoker 06/09/2019 Started at age 15 up to 1 PPD and quit at 33 Family history of thyroid disease 06/09/2019 History of Clostridioides difficile colitis 06/25/2019 Impingement syndrome of right shoulder 12/26/2014 Obesity, Class II, BMI 35-39.9 06/25/2019 Other specified disorder of gallbladder 04/16/2008 Primary insomnia 06/25/2019 RLS (restless legs syndrome) 11/05/2019 Well adult exam 06/09/2019 Previous Surgical History PAST SURGICAL HISTORY Procedure Laterality Date ABDOMINAL SURGERY HX COLONOSCOPY GEN ANES 09/22/2020 Repeat in 3 years DIAGNOSTIC ARTHROSCOPY SHOULDER +- SYNOVIAL BX Right 12/25/2014 Right shoulder arthroscopic labral repair SAD, Lysis of adhesions and manipulation under anethesia EYE SURGERY HX KNEE SURGERY HX Left 04/01/2022 LAPS SURG CHOLECYSTECTOMY W/CHOLANGIOGRAPHY 05/01/2008 Normal IOC LIG/TRNSXJ FLP TUBE ABDL/VAG APPR UNI/BI 1994 Tubal ligation PAST SURGICAL HISTORY OF Left 2017 labreal repair PAST SURGICAL HISTORY OF Right 12/25/2014 labreal repair Family History FAMILY HISTORY Problem Relation Age of Onset Pancreatic Cancer Mother other (AAA) Father GI Sister GB Thyroid Sister other (RLS) Sister GI Sister GB other (RLS) Sister Coronary Artery Disease Brother Heart Brother pacemaker Hypertension Brother Hyperlipidemia Brother other (kidney cancer) Brother Hypertension Brother Hyperlipidemia Brother other (AAA) Brother Hypertension Brother Alzheimer's Disease No Family History Colon Cancer No Family History Prostate Cancer No Family History Breast Cancer No Family History Ovarian cancer No Family History Diabetes No Family History Kidney Disease No Family History Seizures No Family History Stroke No Family History Patient Allergies ALLERGIES Allergen Reactions Avocado Anaphylaxis Current Medications Current Outpatient Medications on File Prior to Visit Medication Sig rOPINIRole (REQUIP) 2 mg tablet Take 1 tablet by mouth daily at bedtime. rOPINIRole (REQUIP) 1 mg tablet Take one tab 1/2 hr before long vehicle rides as needed. clobetasol (TEMOVATE) 0.05 % ointment TO AFFECTED AREA.twice daily x 4 weeks then at night x 4 weeks then every other day x 4 weeks then taper to 1-2 times/week. loratadine (CLARITIN) 10 mg tablet Take 1 tablet by mouth once daily. As needed. colestipol (COLESTID) 1 gram tablet Take 1 tablet by mouth twice daily. (Patient not taking: Reported on 08/16/2023) dicyclomine (BENTYL) 10 mg capsule Take 1 capsule by mouth before meals and at bedtime. (Patient not taking: Reported on 08/16/2023) PSEUDOEPHEDRINE HCL (SUDAFED ORAL) Take by mouth as needed. (Patient not taking: Reported on 08/03/2021 ) No current facility-administered medications on file prior to visit. Social History Social History Tobacco Use Smoking status: Former Packs/day: .5 Types: Cigarettes Quit date: 05/02/2007 Years since quittin.3 Smokeless tobacco: Never Substance Use Topics Alcohol use: Yes Comment: occasional 1-2 per month Drug use: No Review of Symptoms REVIEW OF SYSTEMS GENERAL: No weight loss, malaise or fevers HEENT: No changes in hearing or vision, no nose bleeds or other nasal problems NECK: Negative for lumps, goiter, pain and significant neck swelling RESPIRATORY: Negative for cough, hemoptysis, wheezing, COPD, dyspnea or shortness of breath CARDIOVASCULAR: Negative for chest pain, leg swelling, hypertension, CHF or palpitations GI: Negative for abdominal discomfort, blood in stools or black stools, change in bowel habit, heart burn, nausea, vomiting : No history of dysuria, frequency or incontinence MUSCULOSKELETAL: Negative for joint pain or swelling, back pain or muscle pain SKIN: Negative for lesions, rash, and itching HEMATOLOGY/LYMPHOLOGY: Negative for prolonged bleeding, bruising easily or swollen nodes ENDOCRINE: Negative for cold or heat intolerance, polyuria, polydipsia and goiter NEURO: No history of headaches, syncope, paralysis, seizures or tremors EXAM: BP 115/77 Pulse 78 Temp 36.3 C (97.4 F) (Right Tympanic) Resp 16 Ht 163 cm (5' 4.17) Wt 98.4 kg (217 lb) LMP 06/02/2021 SpO2 98% BMI 37.05 kg/m General Appearance: Well appearing, alert, in no acute distress, well-hydrated, well nourished..obese. Skin: Skin color, texture, turgor normal, no suspicious rashes or lesions. Head: Normocephalic, no masses, lesions, tenderness or abnormalities. Eyes: Anicteric sclera. Pupils are equally round and reactive to light. Extraocular movements are intact. . Ears: External ears normal, canals clear, TMs pearly maria. Nose/Sinuses: Nares normal, septum midline, mucosa normal, no drainage or sinus tenderness. Oropharynx: Lips, mucosa, and tongue normal, teeth and gums normal, oropharynx normal. Neck: Supple, no adenopathy; thyroid symmetric, normal size, no bruits. Lungs: Lungs clear to auscultation. No wheezing, rhonchi, rales.. Heart: RRR without murmur, gallop, or rubs. No ectopy. Abdomen: Normal abdominal exam, Abdomen soft, non-tender. Bowel sounds normal. No masses, organomegaly. Extremities: No deformities, edema, skin discoloration, clubbing or cyanosis. Good capillary refill. . Peripheral Pulses: Normal. Neurologic: Gait normal. Reflexes normal and symmetric. Sensation grossly intact.. Health Maintenance List Mammogram Screening due on 08/07/2022 Behavioral Health Screening Never done Colorectal Cancer Screening due on 09/23/2023 Hepatitis B Vaccine(1 of 3 - 19+ 3-dose series) due on 08/15/2024 Shingrix Vaccine(1 of 2) due on 08/15/2024 Covid-19 Vaccine( - 2022- season) due on 08/15/2024 Influenza Vaccine(Season Ended) due on 01/01/2024 DTaP,Tdap,Td Vaccine(3 - Td or Tdap) due on 10/04/2024 Pap Testing due on 08/06/2025 HPV Testing due on 08/06/2025 Diabetes Screening due on 11/12/2025 Lipid Screening due on 08/14/2027 Hepatitis C Screening Discontinued HIV Screening Discontinued Data reviewed N/a ASSESSMENT/PLAN: 1. Well adult exam - ICD9: V70.0, ICD10: Z00.00 (primary diagnosis) - Counseled on healthy diet and regular exercise - Discussed need and benefit for weight loss. BMI 37.05 kg/(m^2) 2. RLS (restless legs syndrome) - ICD9: 333.94, ICD10: G25.81 Stable on current management 3. History of colonic polyps - ICD9: V12.72, ICD10: Z86.010 Patient due for repeat colonoscopy. She declines at this time. Will consider for next year 4. Elevated hemoglobin A1c - ICD9: 790.29, ICD10: R73.09 - HEMOGLOBIN A1C - COMPREHENSIVE METABOLIC PANEL 5. Obesity, Class II, BMI 35-39.9 - ICD9: 278.00, ICD10: E66.9 - COMPREHENSIVE METABOLIC PANEL 6. Ex-smoker - ICD9: V15.82, ICD10: Z87.891 7. Primary insomnia - ICD9: 307.42, ICD10: F51.01 stable 8. Encounter for lipid screening for cardiovascular disease - ICD9: V77.91, V81.2, ICD10: Z13.220, Z13.6 - LIPID PANEL, NONFASTING 9. Family history of thyroid disease - ICD9: V18.19, ICD10: Z83.49 - THYROID STIMULATING HORMONE Follow up yearly. Mady Covarrubias PA-C documented in this encounterFirelands [facility]07-20-2023 Miscellaneous Notes* Telephone Encounter - Feroz Solomon LPN - 11/18/2022 10:27 AM EDT Spoke with pt and advised her of Mady's message and instructions. Pt is upset that she can not get the pancreatic enzymes. Explained to pt that these are prescribed by gastro and very expensive. Pt states she can not wait. She starts a new job soon. Advised pt to go to ER since she feels like this is getting worse. Explained they can do testing on a more emergent basis. Pt was transferred to schedule gastro appointment. Advised pt if she does not go to ER to come into lab and get stool kits and have labs drawn as well. Feroz Solomon LPN * Telephone Encounter - Mady Covarrubias PA-C - 11/18/2022 10:01 AM EDT Yes. I don't know why they didn't give her the kit and I know I told patient we would be doing that. She can try imodium in the mean time. Repeat labs so I can see if anything appears worse there. We can set up with gastro as I know they may be out a few weeks. Depending on CT scan, plan may change. I see she is scheduled on for CT but I'm out that week. Will try to have Dr. Oliveira review when results are available. If she is worsening, she could go to ER for fluids and maybe they would do a CT scan. * Telephone Encounter - Feroz Solomon LPN - 11/18/2022 9:55 AM EDT Please see pt's message. Do you want me to contact pt and have her come back to lab to excelsior picker stool kits and to get set up with gastro? Any additional instructions for pt? Feroz Solomon LPN documented in this encounterFirelands [facility]07-14-2023 History of Present illness Narrative* Mady Covarrubias PA-C - 11/12/2022 11:45 AM EDT Chief Complaint Patient presents with: Diarrhea: X 3 weeks having gas and bloating HPI Elisabeth Hendricks is a 57 year old female who presents here today for Above Complaints.. Patient reports diarrhea after eating for the past 3 weeks. Also noting gas and bloating. Has tried adjusting her diet. Has some pain after eating until she has diarrhea and then the pain goes away. It doesn't matter what type of food she eats. Yesterday she had multiple stools all night. But thenthis morning has been mostly fine after having some yogurt this morning. She has hx of diverticulitis and is concerned symptoms may be related to that. Last colonoscopy didshow diverticulosis. Initially symptoms started with low grade fever and just felt unwell but those symptoms resolved. Last 6 Encounter Wt Readings: Date: Wt: 11/12/2022 99.8 kg (220 lb) 08/13/2022 104.3 kg (230 lb) 08/03/2021 101.2 kg (223 lb) 04/08/2021 101.2 kg (223 lb) Past medical history, appointments, medications, allergies reviewed. Previous Medical History PAST MEDICAL HISTORY Diagnosis Date Adhesive capsulitis of right shoulder 12/26/2014 Arthritis of right knee 06/25/2019 Bankart lesion of right shoulder 12/26/2014 Diverticulosis of colon 06/25/2019 Ex-smoker 06/09/2019 Started at age 15 up to 1 PPD and quit at 33 Family history of thyroid disease 06/09/2019 History of Clostridioides difficile colitis 06/25/2019 Impingement syndrome of right shoulder 12/26/2014 Obesity, Class II, BMI 35-39.9 06/25/2019 Other specified disorder of gallbladder 04/16/2008 Primary insomnia 06/25/2019 RLS (restless legs syndrome) 11/05/2019 Well adult exam 06/09/2019 Previous Surgical History PAST SURGICAL HISTORY Procedure Laterality Date ABDOMINAL SURGERY HX COLONOSCOPY GEN ANES 09/22/2020 Repeat in 3 years DIAGNOSTIC ARTHROSCOPY SHOULDER +- SYNOVIAL BX Right 12/25/2014 Right shoulder arthroscopic labral repair SAD, Lysis of adhesions and manipulation under anethesia EYE SURGERY HX KNEE SURGERY HX Left 04/01/2022 LAPS SURG CHOLECYSTECTOMY W/CHOLANGIOGRAPHY 05/01/2008 Normal IOC LIG/TRNSXJ FLP TUBE ABDL/VAG APPR UNI/BI 1994 Tubal ligation PAST SURGICAL HISTORY OF Left 2017 labreal repair PAST SURGICAL HISTORY OF Right 12/25/2014 labreal repair Family History FAMILY HISTORY Problem Relation Age of Onset Pancreatic Cancer Mother other (AAA) Father GI Sister GB Thyroid Sister other (RLS) Sister GI Sister GB other (RLS) Sister Coronary Artery Disease Brother Heart Brother pacemaker Hypertension Brother Hyperlipidemia Brother other (kidney cancer) Brother Hypertension Brother Hyperlipidemia Brother other (AAA) Brother Hypertension Brother Alzheimer's Disease No Family History Colon Cancer No Family History Prostate Cancer No Family History Breast Cancer No Family History Ovarian cancer No Family History Diabetes No Family History Kidney Disease No Family History Seizures No Family History Stroke No Family History Patient Allergies ALLERGIES Allergen Reactions Avocado Anaphylaxis Current Medications Current Outpatient Medications on File Prior to Visit Medication Sig rOPINIRole (REQUIP) 2 mg tablet Take 1 tablet by mouth daily at bedtime. rOPINIRole (REQUIP) 1 mg tablet Take one tab 1/2 hr before long vehicle rides as needed. clobetasol (TEMOVATE) 0.05 % ointment TO AFFECTED AREA.twice daily x 4 weeks then at night x 4 weeks then every other day x 4 weeks then taper to 1-2 times/week. loratadine (CLARITIN) 10 mg tablet Take 1 tablet by mouth once daily. As needed. PSEUDOEPHEDRINE HCL (SUDAFED ORAL) Take by mouth as needed. (Patient not taking: Reported on 08/03/2021 ) No current facility-administered medications on file prior to visit. Social History Social History Tobacco Use Smoking status: Former Packs/day: 0.50 Types: Cigarettes Quit date: 05/02/2007 Years since quittin.5 Smokeless tobacco: Never Substance Use Topics Alcohol use: Yes Comment: occasional 1-2 per month Drug use: No Review of Symptoms REVIEW OF SYSTEMS See hpi EXAM: BP 120/86 (BP Site: Left Arm, BP Position: Sitting, BP Cuff Size: Large Adult) Pulse 90 Temp 37.2 C (98.9 F) Resp 18 Wt 99.8 kg (220 lb) LMP 06/02/2021 BMI 38.26 kg/m General Appearance: Well appearing, alert, in no acute distress, well-hydrated, well nourished. andObese. Neck: Supple, no adenopathy; thyroid symmetric, normal size, no bruits. Lungs: Lungs clear to auscultation. No wheezing, rhonchi, rales.. Heart: RRR without murmur, gallop, or rubs. No ectopy. Abdomen: Mild discomfort throughout. Worse in left quadrants and epigastric region. Neg CVA tenderness. BS wnl.. no masses or organomegaly. . Health Maintenance List MAMMOGRAM due on 08/07/2022 DEPRESSION ASSESSMENT due on 05/01/2023 HEPATITIS B(1 of 3 - 3-dose series) due on 08/14/2023 SHINGRIX VACCINE(1 of 2) due on 08/14/2023 COVID-19 VACCINE(3 - Pfizer series) due on 08/14/2023 INFLUENZA(1) due on 12/31/2022 COLORECTAL CANCER SCREENING due on 09/23/2023 DTAP,TDAP,TD(3 - Td or Tdap) due on 10/04/2024 PAP TESTING due on 08/06/2025 HPV TESTING due on 08/06/2025 DIABETES SCREEN due on 08/13/2025 LIPID SCREEN due on 08/14/2027 HEPATITIS C SCREENING Discontinued HIV SCREENING Discontinued Data reviewed ASSESSMENT/PLAN: 1. Diarrhea, unspecified type - ICD9: 787.91, ICD10: R19.7 (primary diagnosis) Check labs, stool study Will get CT scan to r/o diverticulitis. Will trial colestipol and bentyl for symptom management at this time. Based on testing results, may need follow up scheduled. - COMP METABOLIC PANEL - CBC + DIFF - SED RATE WESTERGREN - C. DIFFICILE PCR - AMYLASE BLD - LIPASE BLD - C-REACTIVE PROTEIN (CRP) - FAT, FECAL QUAL - FECAL LACTOFERRIN/LEUKOCYTES - ENTERIC BACTERIAL PANEL BY PCR - CT ABD/PEL W IVCON - IV CONTRAST (RADIOLOGY PROCEDURE) - ENTERIC CONTRAST (RADIOLOGY PROCEDURE) 2. Generalized abdominal pain - ICD9: 789.07, ICD10: R10.84 - as above - COMP METABOLIC PANEL - CBC + DIFF - SED RATE WESTERGREN - C. DIFFICILE PCR - AMYLASE BLD - LIPASE BLD - C-REACTIVE PROTEIN (CRP) - FAT, FECAL QUAL - FECAL LACTOFERRIN/LEUKOCYTES - ENTERIC BACTERIAL PANEL BY PCR - CT ABD/PEL W IVCON - IV CONTRAST (RADIOLOGY PROCEDURE) - ENTERIC CONTRAST (RADIOLOGY PROCEDURE) 3. Bloating - ICD9: 787.3, ICD10: R14.0 As above - COMP METABOLIC PANEL - CBC + DIFF - SED RATE WESTERGREN - C. DIFFICILE PCR - AMYLASE BLD - LIPASE BLD - C-REACTIVE PROTEIN (CRP) - FAT, FECAL QUAL - FECAL LACTOFERRIN/LEUKOCYTES - ENTERIC BACTERIAL PANEL BY PCR - CT ABD/PEL W IVCON - IV CONTRAST (RADIOLOGY PROCEDURE) - ENTERIC CONTRAST (RADIOLOGY PROCEDURE) 4. Left lower quadrant abdominal pain - ICD9: 789.04, ICD10: R10.32 As above - CT ABD/PEL W IVCON - IV CONTRAST (RADIOLOGY PROCEDURE) - ENTERIC CONTRAST (RADIOLOGY PROCEDURE) 5. Hx of diverticulitis of colon - ICD9: V12.79, ICD10: Z87.19 As above. - CT ABD/PEL W IVCON - IV CONTRAST (RADIOLOGY PROCEDURE) - ENTERIC CONTRAST (RADIOLOGY PROCEDURE) Mady Covarrubias PA-C documented in this encounterFirelands [facility]07-11-2023 Miscellaneous Notes* Telephone Encounter - Mady Covarrubias PA-C - 11/09/2022 9:13 AM EDT Noted. Mady Covarrubias PA-C * Telephone Encounter - Natacha Hampton RN - 11/09/2022 8:24 AM EDT Protocol recommends see PCP within 3 days. Pt requests Tuesday. Appt made with Yanira BLAKE at 1140 on 11/12. Care plan reviewed with patient. Patient voices understanding. Advised patient that if symptoms get worse to be evaluated in Urgent Care or ER. Reason for Disposition [1] MILD diarrhea (e.g., 1-3 or more stools than normal in past 24 hours) without known cause AND [2] present > 7 days Answer Assessment - Initial Assessment Questions 1. DIARRHEA SEVERITY: Pt states she has had diarrhea for about 3 weeks. She is having liquid stoolsabout 6x per day. Her normal is 3-4 BM's a day but they are normal consistency. - NO DIARRHEA (SCALE 0) - MILD (SCALE 1-3): Few loose or mushy BMs; increase of 1-3 stools over normal daily number of stools; mild increase in ostomy output. - MODERATE (SCALE 4-7): Increase of 4-6 stools daily over normal; moderate increase in ostomy output. * SEVERE (SCALE 8-10; OR 'WORST POSSIBLE'): Increase of 7 or more stools daily over normal; moderate increase in ostomy output; incontinence. 2. ONSET: states 3 weeks ago 3. BM CONSISTENCY: describes as liquid with sediment 4. VOMITING: States having some vomiting off and on 3x per week. States it occurs if she eats after4-5 pm in the evening. She will wake up and empty her stomach. Vomited this morning. 5. ABDOMINAL PAIN: Reports upper abd pain right under her ribs. Pain comes and goes and seems to bein relation to when she eats. Denies pain at this time. Describes as aching and a fullness and feels bloated. 6. ABDOMINAL PAIN SEVERITY: When she has the pain, it is a 4/10. - MILD (1-3): doesn't interfere with normal activities, abdomen soft and not tender to touch - MODERATE (4-7): interferes with normal activities or awakens from sleep, abdomen tender to touch - SEVERE (8-10): excruciating pain, doubled over, unable to do any normal activities 7. ORAL INTAKE: Pt states she is drinking at least 8 oz of water every hour and is urinating like normal. 8. HYDRATION: Denies any signs of dehydration. Has urinated today. 9. EXPOSURE: Denies travel to a foreign country recently, any exposure to anyone with diarrhea or eating any food that was spoiled. 10. ANTIBIOTIC USE: denies 11. OTHER SYMPTOMS: Denies any fever or blood in stool 12. : N/A postmenopausal Protocols used: [id number] documented in this encounterFirelands [facility]04-17-2023 Miscellaneous Notes* Telephone Encounter - Feroz Solomon LPN - 08/16/2022 9:37 AM EDT Patient notified of results and provider's instructions. Patient verbalizes understanding. Feroz Solomon LPN * Telephone Encounter - Mady Covarrubias PA-C - 08/16/2022 8:35 AM EDT Let patient know that her a1c is 5.9 which is stable. Still prediabetes. Watch carbs/sugars. LDL cholesterol is at 122. Goal is under 130 so this is okay. However it did worsen from last year (108) so watch diet. Metabolic panel is normal. Thyroid normal. documented in this encounterFirelands [facility]04-14-2023 History of Present illness Narrative* Mady Covarrubias PA-C - 08/13/2022 12:55 PM EDT Chief Complaint Patient presents with: Yearly Exam HPI Elisabeth Hendricks is a 57 year old female who presents here today for physical. Patient with hx of insomnia, RLS, ex-smoker, elevated glucose, obesity, and those as below. Patient overall doing okay. Struggles with weight loss. Has been exercising for 2 months. Walking. No dietary changes yet. Last 3 Encounter Wt Readings: Date: Wt: 08/13/2022 104.3 kg (230 lb) 08/03/2021 101.2 kg (223 lb) 04/08/2021 101.2 kg (223 lb) Past medical history, appointments, medications, allergies reviewed. Previous Medical History PAST MEDICAL HISTORY Diagnosis Date Adhesive capsulitis of right shoulder 12/26/2014 Arthritis of right knee 06/25/2019 Bankart lesion of right shoulder 12/26/2014 Diverticulosis of colon 06/25/2019 Ex-smoker 06/09/2019 Started at age 15 up to 1 PPD and quit at 33 Family history of thyroid disease 06/09/2019 History of Clostridioides difficile colitis 06/25/2019 Impingement syndrome of right shoulder 12/26/2014 Obesity, Class II, BMI 35-39.9 06/25/2019 Other specified disorder of gallbladder 04/16/2008 Primary insomnia 06/25/2019 RLS (restless legs syndrome) 11/05/2019 Well adult exam 06/09/2019 Previous Surgical History PAST SURGICAL HISTORY Procedure Laterality Date ABDOMINAL SURGERY HX COLONOSCOPY GEN ANES 09/22/2020 Repeat in 3 years DIAGNOSTIC ARTHROSCOPY SHOULDER +- SYNOVIAL BX Right 12/25/2014 Right shoulder arthroscopic labral repair SAD, Lysis of adhesions and manipulation under anethesia EYE SURGERY HX LAPS SURG CHOLECYSTECTOMY W/CHOLANGIOGRAPHY 05/01/2008 Normal IOC LIG/TRNSXJ FLP TUBE ABDL/VAG APPR UNI/BI 1994 Tubal ligation PAST SURGICAL HISTORY OF Left 2016 labreal repair PAST SURGICAL HISTORY OF Right 12/25/2014 labreal repair Family History FAMILY HISTORY Problem Relation Age of Onset other (AAA) Father GI Sister GB Thyroid Sister other (RLS) Sister GI Sister GB other (RLS) Sister Coronary Artery Disease Brother Heart Brother pacemaker Hypertension Brother Hyperlipidemia Brother other (kidney cancer) Brother Hypertension Brother Hyperlipidemia Brother other (AAA) Brother Hypertension Brother Alzheimer's Disease No Family History Colon Cancer No Family History Prostate Cancer No Family History Breast Cancer No Family History Ovarian cancer No Family History Diabetes No Family History Kidney Disease No Family History Seizures No Family History Stroke No Family History Patient Allergies ALLERGIES Allergen Reactions Avocado Anaphylaxis Current Medications Current Outpatient Medications on File Prior to Visit Medication Sig rOPINIRole (REQUIP) 2 mg tablet Take 1 tablet by mouth daily at bedtime. clobetasol (TEMOVATE) 0.05 % ointment TO AFFECTED AREA.twice daily x 4 weeks then at night x 4 weeks then every other day x 4 weeks then taper to 1-2 times/week. loratadine (CLARITIN) 10 mg tablet Take 1 tablet by mouth once daily. As needed. PSEUDOEPHEDRINE HCL (SUDAFED ORAL) Take by mouth as needed. (Patient not taking: Reported on 08/03/2021 ) No current facility-administered medications on file prior to visit. Social History Social History Tobacco Use Smoking status: Former Packs/day: 0.50 Types: Cigarettes Quit date: 05/02/2007 Years since quittin.2 Smokeless tobacco: Never Substance Use Topics Alcohol use: Yes Comment: occasional 1-2 per month Drug use: No Review of Symptoms REVIEW OF SYSTEMS GENERAL: No weight loss, malaise or fevers HEENT: No changes in hearing or vision, no nose bleeds or other nasal problems NECK: Negative for lumps, goiter, pain and significant neck swelling RESPIRATORY: Negative for cough, hemoptysis, wheezing, COPD, dyspnea or shortness of breath CARDIOVASCULAR: Negative for chest pain, leg swelling, hypertension, CHF or palpitations GI: Negative for abdominal discomfort, blood in stools or black stools, change in bowel habit, heart burn, nausea, vomiting : No history of dysuria, frequency or incontinence MUSCULOSKELETAL: Negative for joint pain or swelling, back pain or muscle pain SKIN: Negative for lesions, rash, and itching PSYCH: Negative for sleep disturbance, mood disorder and recent psychosocial stressors HEMATOLOGY/LYMPHOLOGY: Negative for prolonged bleeding, bruising easily or swollen nodes ENDOCRINE: Negative for cold or heat intolerance, polyuria, polydipsia and goiter NEURO: No history of headaches, syncope, paralysis, seizures or tremors EXAM: BP 126/96 (BP Site: Left Arm, BP Position: Sitting, BP Cuff Size: Large Adult) Pulse 90 Temp 37C (98.6 F) Resp 18 Wt 104.3 kg (230 lb) LMP 06/02/2021 BMI 40.00 kg/m BP 133/81 (BP Site: Left Arm, BP Position: Sitting, BP Cuff Size: Large Adult) Pulse 90 Temp 37C (98.6 F) Resp 18 Wt 104.3 kg (230 lb) LMP 06/02/2021 BMI 40.00 kg/m General Appearance: Well appearing, alert, in no acute distress, well-hydrated, well nourished.. Skin: Skin color, texture, turgor normal, no suspicious rashes or lesions. Head: Normocephalic, no masses, lesions, tenderness or abnormalities. Eyes: Anicteric sclera. Pupils are equally round and reactive to light. Extraocular movements are intact. . Ears: External ears normal, canals clear. Nose/Sinuses: Nares normal, septum midline, mucosa normal, no drainage or sinus tenderness. Oropharynx: Lips, mucosa, and tongue normal, teeth and gums normal, oropharynx normal. Neck: Supple, no adenopathy; thyroid symmetric, normal size, no bruits. Lungs: Lungs clear to auscultation. No wheezing, rhonchi, rales.. Heart: RRR without murmur, gallop, or rubs. No ectopy. Abdomen: Normal abdominal exam, Abdomen soft, non-tender. Bowel sounds normal. No masses, organomegaly. Extremities: No deformities, edema, skin discoloration, clubbing or cyanosis. Good capillary refill. . Peripheral Pulses: Normal. Neurologic: Gait normal. Reflexes normal and symmetric. Sensation grossly intact.. Health Maintenance List SHINGRIX VACCINE(1 of 2) Never done DEPRESSION ASSESSMENT Never done MAMMOGRAM due on 08/07/2022 HEPATITIS B(1 of 3 - 3-dose series) due on 08/14/2023 COVID-19 VACCINE(3 - Booster for Pfizer series) due on 08/14/2023 INFLUENZA(Season Ended) due on 12/31/2022 COLORECTAL CANCER SCREENING due on 09/23/2023 DIABETES SCREEN due on 08/03/2024 DTAP,TDAP,TD(2 - Td or Tdap) due on 10/04/2024 PAP TESTING due on 08/06/2025 HPV TESTING due on 08/06/2025 LIPID SCREEN due on 08/03/2026 HEPATITIS C SCREENING Discontinued HIV SCREENING Discontinued Data reviewed N/a ASSESSMENT/PLAN: 1. Well adult exam - ICD9: V70.0, ICD10: Z00.00 (primary diagnosis) - Counseled on healthy diet and regular exercise - Calcium intake with supplements or by diet of 1000 mg/day for under 50, 1200- 1500 mg/day for 50+ - Discussed need and benefit for weight loss. BMI 40.00 kg/(m^2) - Mammogram ordered - exam recommended once yearly - Follow up for annual exam in one year - patient declines vaccines 2. Obesity, Class II, BMI 35-39.9 - ICD9: 278.00, ICD10: E66.9 Weight increasing - Behavioral intervention 3. Elevated hemoglobin A1c - ICD9: 790.29, ICD10: R73.09 - COMP METABOLIC PANEL - HGB A1C 4. Encounter for screening mammogram for breast cancer - ICD9: V76.12, ICD10: Z12.31 - BEATRICE SCREENING 5. Family history of pancreatic cancer - ICD9: V16.0, ICD10: Z80.0 6. Family history of thyroid disease - ICD9: V18.19, ICD10: Z83.49 - TSH BLD 7. Encounter for lipid screening for cardiovascular disease - ICD9: V77.91, V81.2, ICD10: Z13.220, Z13.6 - LIPID PANEL, NONFASTING Mady Covarrubias PA-C documented in this encounterFire[facility]2023 Miscellaneous Notes* Telephone Encounter - Indira Tyson MA - 05/10/2022 1:57 PM EST Patient contacted and scheduled. Indira Tyson MA * Telephone Encounter - Mady Covarrubias PA-C - 05/10/2022 11:00 AM EST Refill sent. See if patient would like to set up PE now so it can be on the schedule. On/after 08/03/2022 * Telephone Encounter - Indira Tyson MA - 05/10/2022 10:55 AM EST Patient has been identified by name and date of : Yes Requested Prescriptions Pending Prescriptions Disp Refills rOPINIRole (REQUIP) 2 mg tablet 90 tablet 3 Sig: Take 1 tablet by mouth daily at bedtime. RX INSTRUCTIONS: Patient aware RX will be sent to pharmacy. No need to notify patient. Indira Tyson MA Jimenez: 07/2021 Patient will be July 2022 for physical. Last refill: 04/2021 * Telephone Encounter - Marjan Rodriguez - 05/10/2022 10:49 AM EST Patient has been identified by name and date of : Yes Requested Prescriptions Pending Prescriptions Disp Refills rOPINIRole (REQUIP) 2 mg tablet 90 tablet 3 Sig: Take 1 tablet by mouth daily at bedtime. Patient requesting 3 month supply. RX INSTRUCTIONS: Patient aware RX will be sent to pharmacy. No need to notify patient. Marjan Rodriguez documented in this encounterFirelands [facility]08-19-2022 Note ORIGINAL EXAMINATION: MRI OF THE LEFT KNEE WITHOUT CONTRAST12/18/2021 3:33 pm TECHNIQUE: Multiplanar multisequence MRI of the left knee was performed without the administration of intravenous contrast. COMPARISON: None available. HISTORY: ORDERING SYSTEM PROVIDED HISTORY: Reason for Exam: Unilateral primary osteoarthritis, left knee. Pain of left knee. FINDINGS: MUSCLES, TENDONS, AND LIGAMENTS: The anterior cruciate ligament is intact. The posterior cruciate ligament is intact. A thickened morphology with intermediate intrasubstance signal and periligamentous edema is present of the medial collateral ligament. The lateral collateral ligament complex is intact. The popliteus and biceps femoris tendons, iliotibial band, and extensor mechanism are intact. Suspect magic angle artifact of the patellar tendon. MENISCI: There is a blunted morphology involving the inner free edge of the body and posterior horn segments of medial meniscus with small displaced meniscal flap noted in to the inferior aspect of the medial femorotibial recess, best seen on coronal image 14/33. The lateral meniscus is intact. OSSEOUS STRUCTURES AND JOINTS: No fracture or dislocation is evident. No visualized marrow replacing osseous lesions. Small bone island of posterior aspect of medial femoral condyle. Low-grade articular cartilage thinning is present of the medial femorotibial compartment with intermediate grade thinning focally at the posterior weight-bearing medial femoral condyle. Low-grade articular cartilage thinning is present of the lateral femorotibial compartment. Low-grade articular cartilage thinning and fissuring is present the median patellar ridge extending to the adjacent central aspects medial and lateral patellar facets. Low-grade articular cartilage thinning is also present of the inferior aspect of medial femoral trochlea. The articular cartilage of the femoral trochlea is otherwise unremarkable. There is lateral subluxation of patella. Normal morphology of the trochlear groove and normal tibial tuberosity-trochlear groove distance. Trace volume effusion. SOFT TISSUES: Small volume Mclean's cyst with element of partial rupture. Fluid tracks along the pes anserine tendon insertion. IMPRESSION: 1. Flap tear of medial meniscal body segment with displaced fragment into the inferior aspect of medial femorotibial recess. Inner free edge blunting also of the body and posterior horn segments of medial meniscus are compatible with inner free edge radial tearing. 2. Low-grade sprain of medial collateral ligament. 3. Tricompartmental osteoarthrosis, most pronounced of the medial femorotibial compartment. Trace volume effusion. 4. Small volume Mclean's cyst with element of partial rupture. 5. Low-grade sprain of medial collateral ligament. Interpreted by: Rolf Moore DO Preliminary Report By: Rolf Moore DO Electronically signed By Rolf Moore DO Dictated Date: 12/18/2021 3:40:32 PM Prelim Date: 12/18/2021 3:59:30 PM Sign Date: 12/18/2021 3:59:30 PM Ordering Provider: TYRA REYES [facility]08-19-2022 Note ORIGINAL EXAMINATION: MRI OF THE LEFT KNEE WITHOUT CONTRAST12/18/2021 3:33 pm TECHNIQUE: Multiplanar multisequence MRI of the left knee was performed without the administration of intravenous contrast. COMPARISON: None available. HISTORY: ORDERING SYSTEM PROVIDED HISTORY: Reason for Exam: Unilateral primary osteoarthritis, left knee. Pain of left knee. FINDINGS: MUSCLES, TENDONS, AND LIGAMENTS: The anterior cruciate ligament is intact. The posterior cruciate ligament is intact. A thickened morphology with intermediate intrasubstance signal and periligamentous edema is present of the medial collateral ligament. The lateral collateral ligament complex is intact. The popliteus and biceps femoris tendons, iliotibial band, and extensor mechanism are intact. Suspect magic angle artifact of the patellar tendon. MENISCI: There is a blunted morphology involving the inner free edge of the body and posterior horn segments of medial meniscus with small displaced meniscal flap noted in to the inferior aspect of the medial femorotibial recess, best seen on coronal image 14/33. The lateral meniscus is intact. OSSEOUS STRUCTURES AND JOINTS: No fracture or dislocation is evident. No visualized marrow replacing osseous lesions. Small bone island of posterior aspect of medial femoral condyle. Low-grade articular cartilage thinning is present of the medial femorotibial compartment with intermediate grade thinning focally at the posterior weight-bearing medial femoral condyle. Low-grade articular cartilage thinning is present of the lateral femorotibial compartment. Low-grade articular cartilage thinning and fissuring is present the median patellar ridge extending to the adjacent central aspects medial and lateral patellar facets. Low-grade articular cartilage thinning is also present of the inferior aspect of medial femoral trochlea. The articular cartilage of the femoral trochlea is otherwise unremarkable. There is lateral subluxation of patella. Normal morphology of the trochlear groove and normal tibial tuberosity-trochlear groove distance. Trace volume effusion. SOFT TISSUES: Small volume Mclean's cyst with element of partial rupture. Fluid tracks along the pes anserine tendon insertion. IMPRESSION: 1. Flap tear of medial meniscal body segment with displaced fragment into the inferior aspect of medial femorotibial recess. Inner free edge blunting also of the body and posterior horn segments of medial meniscus are compatible with inner free edge radial tearing. 2. Low-grade sprain of medial collateral ligament. 3. Tricompartmental osteoarthrosis, most pronounced of the medial femorotibial compartment. Trace volume effusion. 4. Small volume Mclean's cyst with element of partial rupture. 5. Low-grade sprain of medial collateral ligament. Interpreted by: Rolf Moore DO Preliminary Report By: Rolf Moore DO Electronically signed By Rolf Moore DO Dictated Date: 12/18/2021 3:40:32 PM Prelim Date: 12/18/2021 3:59:30 PM Sign Date: 12/18/2021 3:59:30 PM Ordering Provider: [facility]04-12-2022 Miscellaneous Notes* Telephone Encounter - Alaina Dasilva Ma - 08/11/2021 8:59 AM EDT Left message on Alaina Dasilva Ma * Telephone Encounter - Enoc Oliveira MD - 08/10/2021 9:15 PM EDT Let patient know mammogram was ok. documented in this encounterFirelands [facility]04-09-2022 Miscellaneous Notes* Letter - Mammography Coordinator - 08/08/2021 8:58 AM EDT August 08, 2021 PID: [id number] Elisabeth Hendricks [address] [place] [address] Dear Ms. Hendricks, We are pleased to inform you that the results of your recent breast imaging exam on 08/07/2021 are normal. Early detection of cancer is very important. We also understand recommendations regarding breast cancer screening are controversial. Please discuss with your primary care provider which strategy is best for you and whether a mammogram is right for you. Your imaging studies and report will be kept on [facility] at [facility] as part of your permanent medical record and are available for your continuing care. Thank you for allowing us to help in meeting your health care needs. Sincerely, Dr. Valentine Interpreting Radiologist [facility] (Normal over 40) documented in this encounterFirelands [facility]04-05-2022 Miscellaneous Notes* Telephone Encounter - Feroz Solomon LPN - 08/04/2021 1:24 PM EDT Pt notified of same. Feroz Solomon LPN * Telephone Encounter - Mady Covarrubias PA-C - 08/04/2021 12:27 PM EDT Let patient know that overall her labs are okay. Her a1c is 5.8% which is stable. Still prediabetes. Cholesterol is good. Thanks. Mady Covarrubias PA-C documented in this encounterFirelands [facility]04-04-2022 History of Present illness Narrative* Mady Covarrubias PA-C - 08/03/2021 2:07 PM EDT Chief Complaint Patient presents with: Physical HPI Elisabeth Hendricks is a 56 year old female who presents here today for physical. Patient with hx of hgb a1c, obesity, insomnia, ex smoker, and those as below. Patient without concerns today. Struggling with weight. Past medical history, appointments, medications, allergies reviewed. Previous Medical History PAST MEDICAL HISTORY Diagnosis Date Adhesive capsulitis of right shoulder 12/26/2014 Arthritis of right knee 06/25/2019 Bankart lesion of right shoulder 12/26/2014 Diverticulosis of colon 06/25/2019 Ex-smoker 06/09/2019 Started at age 15 up to 1 PPD and quit at 33 Family history of thyroid disease 06/09/2019 History of Clostridioides difficile colitis 06/25/2019 Impingement syndrome of right shoulder 12/26/2014 Obesity, Class II, BMI 35-39.9 06/25/2019 Other specified disorder of gallbladder 04/16/2008 Primary insomnia 06/25/2019 RLS (restless legs syndrome) 11/05/2019 Well adult exam 06/09/2019 Previous Surgical History PAST SURGICAL HISTORY Procedure Laterality Date ABDOMINAL SURGERY HX COLONOSCOPY GEN ANES 09/22/2020 Repeat in 3 years DIAGNOSTIC ARTHROSCOPY SHOULDER +- SYNOVIAL BX Right 12/25/2014 Right shoulder arthroscopic labral repair SAD, Lysis of adhesions and manipulation under anethesia EYE SURGERY HX LAPS SURG CHOLECYSTECTOMY W/CHOLANGIOGRAPHY 05/01/2008 Normal IOC LIG/TRNSXJ FLP TUBE ABDL/VAG APPR UNI/BI 1994 Tubal ligation PAST SURGICAL HISTORY OF Left 2017 labreal repair PAST SURGICAL HISTORY OF Right 12/25/2014 labreal repair Family History FAMILY HISTORY Problem Relation Age of Onset other (AAA) Father GI Sister GB Thyroid Sister other (RLS) Sister GI Sister GB other (RLS) Sister Coronary Artery Disease Brother Heart Brother pacemaker Hypertension Brother Hyperlipidemia Brother other (kidney cancer) Brother Hypertension Brother Hyperlipidemia Brother other (AAA) Brother Hypertension Brother Alzheimer's Disease No Family History Colon Cancer No Family History Prostate Cancer No Family History Breast Cancer No Family History Ovarian cancer No Family History Diabetes No Family History Kidney Disease No Family History Seizures No Family History Stroke No Family History Patient Allergies ALLERGIES Allergen Reactions Avocado Anaphylaxis Current Medications Current Outpatient Medications on File Prior to Visit Medication Sig rOPINIRole (REQUIP) 2 mg tablet Take 1 tablet by mouth daily at bedtime. clobetasol (TEMOVATE) 0.05 % ointment TO AFFECTED AREA.twice daily x 4 weeks then at night x 4 weeks then every other day x 4 weeks then taper to 1-2 times/week. loratadine (CLARITIN) 10 mg tablet Take 1 tablet by mouth once daily. As needed. PSEUDOEPHEDRINE HCL (SUDAFED ORAL) Take by mouth as needed. (Patient not taking: Reported on 08/03/2021 ) No current facility-administered medications on file prior to visit. Social History Social History Tobacco Use Smoking status: Former Smoker Packs/day: 0.50 Types: Cigarettes Quit date: 05/02/2007 Years since quittin.2 Smokeless tobacco: Never Used Substance Use Topics Alcohol use: Yes Comment: occasional 1-2 per month Drug use: No Review of Symptoms REVIEW OF SYSTEMS GENERAL: No weight loss, malaise or fevers HEENT: No changes in hearing or vision, no nose bleeds or other nasal problems NECK: Negative for lumps, goiter, pain and significant neck swelling RESPIRATORY: Negative for cough, hemoptysis, wheezing, COPD, dyspnea or shortness of breath CARDIOVASCULAR: Negative for chest pain, leg swelling, hypertension, CHF or palpitations GI: Negative for abdominal discomfort, blood in stools or black stools, change in bowel habit, heart burn, nausea, vomiting : No history of dysuria, frequency or incontinence MUSCULOSKELETAL: left knee pain chronically - Seeing ortho SKIN: Negative for lesions, rash, and itching PSYCH: Negative for sleep disturbance, mood disorder and recent psychosocial stressors HEMATOLOGY/LYMPHOLOGY: Negative for prolonged bleeding, bruising easily or swollen nodes ENDOCRINE: Negative for cold or heat intolerance, polyuria, polydipsia and goiter NEURO: No history of headaches, syncope, paralysis, seizures or tremors EXAM: BP 126/88 Pulse 80 Temp 36.6 C (97.9 F) Resp 20 Ht 161.5 cm (5' 3.58) Wt 101.2 kg (223 lb) LMP 06/02/2021 BMI 38.78 kg/m Last 6 Encounter Wt Readings: Date: Wt: 08/03/2021 101.2 kg (223 lb) 04/08/2021 101.2 kg (223 lb) 11/11/2020 96.2 kg (212 lb) 08/19/2020 93.4 kg (205 lb 14.6 oz) 08/19/2020 93.4 kg (206 lb) 08/06/2020 92.9 kg (204 lb 12.8 oz) General Appearance: Well appearing, alert, in no acute distress, well-hydrated, well nourished.. obese Skin: Skin color, texture, turgor normal, no suspicious rashes or lesions. Head: Normocephalic, no masses, lesions, tenderness or abnormalities. Eyes: Anicteric sclera. Pupils are equally round and reactive to light. Extraocular movements are intact. . Ears: External ears normal, canals clear, TMs pearly maria. Nose/Sinuses: deferred- mask. Oropharynx: deferred- mask. Neck: Supple, no adenopathy; thyroid symmetric, normal size, no bruits. Lungs: Lungs clear to auscultation. No wheezing, rhonchi, rales.. Heart: RRR without murmur, gallop, or rubs. No ectopy. Abdomen: Normal abdominal exam, Abdomen soft, non-tender. Bowel sounds normal. No masses, organomegaly. Extremities: No deformities, edema, skin discoloration, clubbing or cyanosis. Good capillary refill. . Peripheral Pulses: Normal. Neurologic: Gait normal. Reflexes normal and symmetric. Sensation grossly intact.. Health Maintenance List SHINGRIX VACCINE(1 of 2) Never done COVID-19 VACCINE(3 - Booster for Pfizer series) due on 2021 MAMMOGRAM due on 08/06/2021 DIABETES SCREEN due on 08/07/2023 COLORECTAL CANCER SCREENING due on 09/23/2023 DTAP,TDAP,TD(2 - Td or Tdap) due on 10/04/2024 LIPID SCREEN due on 08/06/2025 PAP TESTING due on 08/06/2025 HPV TESTING due on 08/06/2025 INFLUENZA Completed MENINGOCOCCAL CONJUGATE Aged Out HEPATITIS C SCREENING Discontinued HIV SCREENING Discontinued DEPRESSION SCREENING Discontinued Data reviewed ASSESSMENT/PLAN: 1. Well adult exam - ICD9: V70.0, ICD10: Z00.00 (primary diagnosis) - Counseled on healthy diet and regular exercise - Calcium intake with supplements or by diet of 1000 mg/day for under 50, 1200- 1500 mg/day for 50+ 2. RLS (restless legs syndrome) - ICD9: 333.94, ICD10: G25.81 stable - COMP METABOLIC PANEL 3. Obesity, Class II, BMI 35-39.9 - ICD9: 278.00, ICD10: E66.9 Weight increasing - Behavioral intervention - COMP METABOLIC PANEL 4. Primary insomnia - ICD9: 307.42, ICD10: F51.01 stable 5. Elevated hemoglobin A1c - ICD9: 790.29, ICD10: R73.09 Await labs 6. Arthralgia of left knee - ICD9: 719.46, ICD10: M25.562 F/u with ortho prn 7. Weight gain - ICD9: 783.1, ICD10: R63.5 check - TSH BLD 8. Screening mammogram for breast cancer - ICD9: V76.12, ICD10: Z12.31 - Set up for mammogram, yearly mammogram recommended - Follow up for annual exam in one year. - BEATRICE SCREENING 9. Encounter for screening for diabetes mellitus - ICD9: V77.1, ICD10: Z13.1 - HGB A1C 10. Family history of thyroid disease - ICD9: V18.19, ICD10: Z83.49 - TSH BLD 11. Encounter for lipid screening for cardiovascular disease - ICD9: V77.91, V81.2, ICD10: Z13.220,Z13.6 - LIPID PANEL, NONFASTING 12. Ex-smoker - ICD9: V15.82, ICD10: Z87.891 Stable. Follow up yearly. Mady Covarrubias PA-C [facility] No data available for this section [facility] Evaluation note* Diagnosis Well adult exam- Primary Routine general medical examination at a health care facility RLS (restless legs syndrome) Restless legs syndrome (RLS) Obesity, Class II, BMI 35-39.9 Obesity, unspecified Primary insomnia Persistent disorder of initiating or maintaining sleep Elevated hemoglobin A1c Other abnormal blood chemistry Arthralgia of left knee Weight gain Abnormal weight gain Screening mammogram for breast cancer Encounter for screening for diabetes mellitus Screening for diabetes mellitus Family history of thyroid disease Family history of other endocrine and metabolic diseases Encounter for lipid screening for cardiovascular disease Screening for lipoid disorders Ex-smoker Personal history of tobacco use, presenting hazards to health documented [facility]* Diagnosis Well adult exam- Primary Routine general medical examination at a health care facility Obesity, Class II, BMI 35-39.9 Obesity, unspecified Elevated hemoglobin A1c Other abnormal blood chemistry Encounter for screening mammogram for breast cancer Family history of pancreatic cancer Family history of malignant neoplasm of gastrointestinal tract Family history of thyroid disease Family history of other endocrine and metabolic diseases Encounter for lipid screening for cardiovascular disease Screening for lipoid disorders [facility] Diagnosis Diarrhea, unspecified type- Primary Generalized abdominal pain Abdominal pain, generalized Bloating Flatulence, eructation, and gas pain Left lower quadrant abdominal pain Hx of diverticulitis of colon Personal history of other diseases of digestive system documented [facility] noteNo assessment information [facility]WD[facility] Work Phone: Evaluation note* Diagnosis Diarrhea, unspecified type- Primary Bloating Flatulence, eructation, and gas pain Generalized abdominal pain Abdominal pain, generalized documented in this encounter [facility] note* Diagnosis Encounter for screening mammogram for breast cancer documented [facility] Diagnosis Well adult exam- Primary Routine general medical examination at a health care facility RLS (restless legs syndrome) Restless legs syndrome (RLS) History of colonic polyps Personal history of colonic polyps Elevated hemoglobin A1c Other abnormal blood chemistry Obesity, Class II, BMI 35-39.9 Obesity, unspecified Ex-smoker Personal history of tobacco use, presenting hazards to health Primary insomnia Persistent disorder of initiating or maintaining sleep Encounter for lipid screening for cardiovascular disease Screening for lipoid disorders Family history of thyroid disease Family history of other endocrine and metabolic diseases documented [facility] encounter [facility] note* Diagnosis Obesity, Class II, BMI 35-39.9- Primary Obesity, unspecified Prediabetes Other abnormal glucose documented in [facility] encounter [facility] note* Diagnosis Prediabetes Other abnormal glucose Class 3 severe obesity with serious comorbidity and body mass index (BMI) of 40.0 to 44.9 in adult, unspecified obesity type (HCC) documented in this encounter [facility] note* Diagnosis Encounter for screening mammogram for breast cancer documented in this encounter [facility] note* Diagnosis Well adult exam- Primary Routine general medical examination at a health care facility RLS (restless legs syndrome) Restless legs syndrome (RLS) Obesity, Class II, BMI 35-39.9 Obesity, unspecified Elevated hemoglobin A1c Other abnormal blood chemistry Screening for depression Encounter for screening examination for other mental health and behavioral disorders Family history of thyroid disease Family history of other endocrine and metabolic diseases History of colonic polyps Personal history of colonic polyps Encounter for lipid screening for cardiovascular disease Screening for lipoid disorders documented in this encounter [facility] Diagnosis Encounter for screening [facility]ogram for breast cancer [facility] No data available for this section [facility] Discharge instructions Additional Instructions There is diverticulitis so I prescribed an antibiotic called Augmentin. Please follow up with GI for a colonoscopy.[facility] Work Phone: Progress note No data available for this section [facility] Reason for referral (narrative)* Diagnostic Procedure Only (Routine) - Authorized Specialty Diagnoses / Procedures Referred By Contac t Referred To Contact [facility] Diagnoses Screening mammogram for breast cancer Procedures BEATRICE SCREENING SCREENING MAMMOGRAPHY BI 2-VIEW BREAST INC CAD Mady Covarrubias PA-C [address] [place] [address] [facility] [address] [place] [address] Referral ID Status Reason Start Date Expiration Date Visits Requested Visits Authorized [id number] Authorized Auto-Generat ed Referral 08/03/2021 09/02/2022 1 1 [facility] for referral (narrative)* Diagnostic Procedure Only (Routine) - Pending Review Specialty Diagnoses / Procedures Referred By Contac t Referred To Contact [facility] Diagnoses Encounter for screening mammogram for breast cancer Procedures BEATRICE SCREENING SCREENING MAMMOGRAPHY BI 2-VIEW BREAST INC CAD Mady Covarrubias PA-C [address] [place] [address] [facility] [address] [place] [address] Referral ID Status Reason Start Date Expiration Date Visits Requested Visits Authorized [id number] Pending Review Auto-Generat ed Referral 08/13/2022 09/12/2023 1 1 [facility] for referral (narrative)* Diagnostic Procedure Only (Routine) - Pending Review Specialty Diagnoses / Procedures Referred By Contac t Referred To Contact [facility] Diagnoses Encounter for screening mammogram for breast cancer Procedures BEATRICE SCREENING SCREENING MAMMOGRAPHY BI 2-VIEW BREAST INC CAD Enoc Oliveira MD [address] [place] [address] [facility] [address] [place] [address] Referral ID Status Reason Start Date Expiration Date Visits Requested Visits Authorized [id number] Pending Review Auto-Generat ed Referral 08/03/2023 09/01/2024 1 1 [facility]No reason for referral information availableWDunlap [facility] Work Phone: Reason for visit Narrative* Diagnostic Procedure Only (Routine) - Closed Specialty Diagnoses / Procedures Referred By Jonathan moore Referred To Contact [facility] Diagnoses Encounter for screening mammogram for breast cancer Procedures BEATRICE SCREENING W WALTER SCREENING DIGITAL BREAST TOMOSYNTHESIS BI SCREENING MAMMOGRAPHY BI 2-VIEW BREAST INC CAD Enoc Oliveira MD [address] [place] [address] Phone: tel: fax: [facility] [address] [place] [address] Referral ID Status Reason Start Date Expiration Date V isits Requested Visits Authorized [id number] Closed Auto-Generate d Referral 07/03/2024 08/02/2025 1 1 [facility] Advance Directives No Advanced Directives Records FoundDocuments on File Type Date 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 No August 29, 2024 10:48am Summary Purpose Family History No Family History Records Found Relationship Condition Age at Onset Recorded Date/T reyes brother Malignant neoplasm Unknown mother Malignant neoplasm Unknown father Cardiac disease Unknown grandmother Disorder of thyroid Unknown Reason for Referral Specialty Diagnoses / Procedures Referred By Jonathan moore Referred To Contact Gastroenterology Diagnoses Diarrhea, unspecified type Bloating Generalized abdominal pain Procedures CONSULT TO GASTROENTEROLOGY OFFICE/OUTPATIENT NEW HIGH MDM 60-74 MINUTES Mady Covarrubias PA-C [address] [place] [address] Referral ID Status Reason Start Date Expiration Date Visits Requested Visits Authorized [id number] Authorized PCP Requested Referral 11/18/2022 11/18/2023 1 1 Specialty Diagnoses / Procedures Referred By Contac t Referred To Contact CT [facility] Diagnoses Diarrhea, unspecified type Generalized abdominal pain Bloating Left lower quadrant abdominal pain Hx of diverticulitis of colon Procedures CT ABD/PEL W IVCON CT ABD & PELVIS W/CONTRAST Mady Covarrubias PA-C [address] [place] [address] Ct [facility] Referral ID Status Reason Start Date Expiration Date V isits Requested Visits Authorized [id number] Open Auto-Generate d Referral 11/12/2022 12/12/2023 1 1 Chief Complaint and Reason for Visit Chief Complaint Diarrhea Chief Complaint Admit Date Hernia June 28, 2024 7:06am Test Result September 21, 2024 6:43a m E ORDERS September 21, 2024 7:28a m E ORDER September 25, 2024 7:24a m Reason for Visit Admit Date Bloating June 28, 2024 7:06am GERD (gastroesophageal reflux disease) F ebruary 2024 7:06am History of colon polyps June 28, 2 025 7:06am Nausea June 28, 2024 7:06am Bloating September 03, 2024 5:24am GERD (gastroesophageal reflux disease) M ay 2024 5:24am History of colon polyps September 03, 2024 5: 24am Nausea September 03, 2024 5:24am GERD (gastroesophageal reflux disease) M ay 2024 6:43am Loose stools September 21, 2024 6:43a m Chief Complaint Admit Date Hernia June 28, 2024 7:06am Test Result September 21, 2024 6:43a m E ORDERS September 21, 2024 7:28a m E ORDER September 25, 2024 7:24a m 1 M FU October 24, 2024 4:28 pm Additional Source Comments Source Comments (unrecognize d section and content) In the event this informatio n is protected by the Federal Confidentiality of Alcohol and Drug Abuse Patient Records regulations: The Federal rules restrict any use of the information to criminally investigate or prosecute any alcohol or drug abuse patient.[facility] the event this information is protected by the Federal Confidentiality of Alcohol and Drug Abuse Patient Records regulations: The Federal rules restrict any use of the information to criminally investigate or prosecute any alcohol or drug abuse patient.[facility] the event this information is protected by the Federal Confidentiality of Alcohol and Drug Abuse Patient Records regulations: The Federal rules restrict any use of the information to criminally investigate or prosecute any alcohol or drug abuse patient.[facility] the event this information is protected by the Federal Confidentiality of Alcohol and Drug Abuse Patient Records regulations: The Federal rules restrict any use of the information to criminally investigate or prosecute any alcohol or drug abuse patient.[facility] the event this information is protected by the Federal Confidentiality of Alcohol and Drug Abuse Patient Records regulations: The Federal rules restrict any use of the information to criminally investigate or prosecute any alcohol or drug abuse patient.[facility] Campus[facility] the event this information is protected by the Federal Confidentiality of Alcohol and Drug Abuse Patient Records regulations: The Federal rules restrict any use of the information to criminally investigate or prosecute any alcohol or drug abuse patient.[facility] Campus[facility] the event this information is protected by the Federal Confidentiality of Alcohol and Drug Abuse Patient Records regulations: The Federal rules restrict any use of the information to criminally investigate or prosecute any alcohol or drug abuse patient.[facility] Campus[facility] the event this information is protected by the Federal Confidentiality of Alcohol and Drug Abuse Patient Records regulations: The Federal rules restrict any use of the information to criminally investigate or prosecute any alcohol or drug abuse patient.[facility] Campus[facility] the event this information is protected by the Federal Confidentiality of Alcohol and Drug Abuse Patient Records regulations: The Federal rules restrict any use of the information to criminally investigate or prosecute any alcohol or drug abuse patient.[facility] Campus[facility] the event this information is protected by the Federal Confidentiality of Alcohol and Drug Abuse Patient Records regulations: The Federal rules restrict any use of the information to criminally investigate or prosecute any alcohol or drug abuse patient.[facility] Campus[facility] the event this information is protected by the Federal Confidentiality of Alcohol and Drug Abuse Patient Records regulations: The Federal rules restrict any use of the information to criminally investigate or prosecute any alcohol or drug abuse patient.[facility] Campus[facility] the event this information is protected by the Federal Confidentiality of Alcohol and Drug Abuse Patient Records regulations: The Federal rules restrict any use of the information to criminally investigate or prosecute any alcohol or drug abuse patient.[facility] CampusIn the event this information is protected by the Federal Confidentiality of Alcohol and Drug Abuse Patient Records regulations: The Federal rules restrict any use of the information to criminally investigate or prosecute any alcohol or drug abuse patient.[facility] CampusIn the event this information is protected by the Federal Confidentiality of Alcohol and Drug Abuse Patient Records regulations: The Federal rules restrict any use of the information to criminally investigate or prosecute any alcohol or drug abuse patient.[facility] CampusIn the event this information is protected by the Federal Confidentiality of Alcohol and Drug Abuse Patient Records regulations: The Federal rules restrict any use of the information to criminally investigate or prosecute any alcohol or drug abuse patient.[facility] CampusIn the event this information is protected by the Federal Confidentiality of Alcohol and Drug Abuse Patient Records regulations: The Federal rules restrict any use of the information to criminally investigate or prosecute any alcohol or drug abuse patient.[facility] CampusIn the event this information is protected by the Federal Confidentiality of Alcohol and Drug Abuse Patient Records regulations: The Federal rules restrict any use of the information to criminally investigate or prosecute any alcohol or drug abuse patient.[facility] CampusIn the event this information is protected by the Federal Confidentiality of Alcohol and Drug Abuse Patient Records regulations: The Federal rules restrict any use of the information to criminally investigate or prosecute any alcohol or drug abuse patient.[facility] CampusIn the event this information is protected by the Federal Confidentiality of Alcohol and Drug Abuse Patient Records regulations: The Federal rules restrict any use of the information to criminally investigate or prosecute any alcohol or drug abuse patient.[facility] CampusIn the event this information is protected by the Federal Confidentiality of Alcohol and Drug Abuse Patient Records regulations: The Federal rules restrict any use of the information to criminally investigate or prosecute any alcohol or drug abuse patient.[facility] CampusIn the event this information is protected by the Federal Confidentiality of Alcohol and Drug Abuse Patient Records regulations: The Federal rules restrict any use of the information to criminally investigate or prosecute any alcohol or drug abuse patient.[facility] CampusIn the event this information is protected by the Federal Confidentiality of Alcohol and Drug Abuse Patient Records regulations: The Federal rules restrict any use of the information to criminally investigate or prosecute any alcohol or drug abuse patient.[facility] CampusIn the event this information is protected by the Federal Confidentiality of Alcohol and Drug Abuse Patient Records regulations: The Federal rules restrict any use of the information to criminally investigate or prosecute any alcohol or drug abuse patient.[facility] Reason for Visit (unrecogniz ed section and content) Reason Comments Physical Reason Comments Results Reason Onset Date Comments Refill Request 05/10/2022 Reason Comments Yearly Exam Reason Comments Diarrhea stomach pain Reason Comments Diarrhea X 3 weeks having gas and bloating Reason Comments Yearly Exam Reason Comments Obesity Specialty Diagnoses / Procedures Referred By Jonathan moore Referred To Contact Endocrinology / ENDOCRINOLOGY Diagnoses Weight loss Procedures VIDEO NEW MED WT MGMT Self Shan Vargas MD [address] [place] [address] Referral ID Status Reason Start Date Expiration Date V isits Requested Visits Authorized [id number] Denied Financial Clearance Required - Self Pay Clearance Not Met - 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 Please schedule open access colonoscopy Reason Comments Refill Request Reason Onset Date Comments Results 08/17/2024 Care Teams (unrecognized sec tion and content) Management And Budget Analyst Relationship Specialty Start Date End Date Enoc Oliveira MD [address] [place] [address] PCP - General Family Practice 06/09/19 Management And Budget Analyst Relationship Specialty Start Date End Date Enoc Oliveira MD [address] [place] [address] PCP - General Family Practice 06/09/19 Management And Budget Analyst Relationship Specialty Start Date End Date Enoc Oliveira MD [address] [place] [address] PCP - General Family Practice 06/09/19 Management And Budget Analyst Relationship Specialty Start Date End Date Enoc Oliveira MD [address] [place] [address] PCP - General Family Practice 06/09/19 Management And Budget Analyst Relationship Specialty Start Date End Date Enoc Oliveira MD [address] [place] [address] PCP - General Family Medicine 06/09/19 Management And Budget Analyst Relationship Specialty Start Date End Date Enoc Oliveira MD [address] [place] [address] PCP - General Family Medicine 06/09/19 Management And Budget Analyst Relationship Specialty Start Date End Date Enoc Oliveira MD [address] [place] [address] PCP - General Family Medicine 06/09/19 Management And Budget Analyst Relationship Specialty Start Date End Date Enoc Oliveira MD [address] [place] [address] PCP - General Family Medicine 06/09/19 Management And Budget Analyst Relationship Specialty Start Date End Date Enoc Oliveira MD [address] [place] [address] PCP - General Family Medicine 06/09/19 Team Status: Active Member Role Status Dates No Primary Care Physician Family Provider Active HAYDEN Dumont Primary Care Provider Active Team Status: Inactive Member Role Status Dates Dr. Kvng Ford , DO Emergency Provider Active HAYDEN Dumont Primary Care Provider Active Management And Budget Analyst Relationship Specialty Start Date End Date Enoc Oliveira MD [address] [place] [address] PCP - General Family Medicine 06/09/19 Management And Budget Analyst Relationship Specialty Start Date End Date Enoc Oliveira MD [address] [place] [address] PCP - General Family Medicine 06/09/19 Management And Budget Analyst Relationship Specialty Start Date End Date Enoc Oliveira MD [address] [place] [address] PCP - General Family Medicine 06/09/19 Management And Budget Analyst Relationship Specialty Start Date End Date Enoc Oliveira MD [address] [place] [address] PCP - General Family Medicine 06/09/19 Management And Budget Analyst Relationship Specialty Start Date End Date Enoc Oliveira MD [address] [place] [address] PCP - General Family Medicine 06/09/19 Nimco Reyes, ZARA.MOTOR VEHICLE TECHNICIAN [address] [place] [address] Needle Bar Molder Family Medicine 04/07/24 Mady Covarrubias PA-C [address] [place] [address] Needle Bar Molder Family Medicine 04/07/24 Management And Budget Analyst Relationship Specialty Start Date End Date Enoc Oliveira MD [address] [place] [address] PCP - General Family Medicine 06/09/19 Nimco Reyes, CERTIFIED MASTER SAFECRACKER.MOTOR VEHICLE TECHNICIAN [address] [place] [address] Needle Bar Molder Family Medicine 04/07/24 Mady Covarrubias PA-C [address] [place] [address] Needle Bar Molder Family Medicine 04/07/24 Management And Budget Analyst Relationship Specialty Start Date End Date Enoc Oliveira MD [address] [place] [address] PCP - General Family Medicine 06/09/19 Nimco Reyes, CERTIFIED MASTER SAFECRACKER.MOTOR VEHICLE TECHNICIAN [address] [place] [address] Needle Bar Molder Family Medicine 04/07/24 Mady Covarrubias PA-C [address] [place] [address] Needle Bar Molder Family Medicine 04/07/24 Management And Budget Analyst Relationship Specialty Start Date End Date Enoc Oliveira MD [address] [place] [address] PCP - General Family Medicine 06/09/19 Nimco Reyes, ZARA.MOTOR VEHICLE TECHNICIAN [address] [place] [address] Needle Bar Molder Family Medicine 04/07/24 Mady Covarrubias PA-C [address] [place] [address] Needle Bar Molder Family Medicine 04/07/24 Management And Budget Analyst Relationship Specialty Start Date End Date Enoc Oliveira MD [address] [place] [address] PCP - General Family Medicine 06/09/19 Nimco Reyes, ZARA.MOTOR VEHICLE TECHNICIAN [address] [place] [address] [facility] 04/07/24 Mady Covarrubias PA-C [address] [place] [address] [facility] 04/07/24 Management And Budget Analyst Relationship Specialty Start Date End Date Enoc Oliveira MD [address] [place] [address] PCP - General Family Medicine 06/09/19 Nimco Reyes, CERTIFIED MASTER SAFECRACKER.MOTOR VEHICLE TECHNICIAN [address] [place] [address] [facility] Mady Covarrubias PA-C [address] [place] [address] [facility] Management And Budget Analyst Relationship Specialty Start Date End Date Enoc Oliveira MD [address] [place] [address] PCP - General Family Medicine 06/09/19 Nimco Reyes, CERTIFIED MASTER SAFECRACKER.MOTOR VEHICLE TECHNICIAN [address] [place] [address] [facility] 04/07/24 Mady Covarrubias PA-C [address] [place] [address] [facility] 04/07/24 Management And Budget Analyst Relationship Specialty Start Date End Date Enoc Oliveira MD [address] [place] [address] PCP - General Family Medicine 06/09/19 Nimco Reyes, CERTIFIED MASTER SAFECRACKER.MOTOR VEHICLE TECHNICIAN [address] [place] [address] [facility] 04/07/24 Mady Covarrubias PA-C [address] [place] [address] [facility] 04/07/24 Team Status: Active Member Role Status Dates Mady Covarrubias PA, PA Primary Care Provider Active Team Status: Inactive Member Role Status Dates Mady Covarrubias PA, PA Primary Care Provider Active Start: June 28, 2024 End: June 28, 2024 Mady Covarrubias PA, PA Referring Provider Active Start: June 28, 2024 End: June 28, 2024 Vira Valderrama PA Attending Provider Active Start: June 28, 2024 End: June 28, 2024 Team Status: Inactive Member Role Status Dates Mady Covarrubias PA, PA Primary Care Provider Active Start: September 03, 2024 End: September 03, 2024 Mady Covarrubias PA, PA Referring Provider Active Start: September 03, 2024 End: September 03, 2024 Dr. Juan R Haddad , DO Attending Provider Active Start: September 03, 2024 End: September 03, 2024 Team Status: Active Member Role Status Dates Mady Covarrubias PA, PA Primary Care Provider Active Start: September 03, 2024 Mady Covarrubias PA, PA Referring Provider Active Start: September 03, 2024 Dr. Juan R Haddad , DO Attending Provider Active Start: September 03, 2024 Dr. Juan R Haddad , DO Other Provider Active St art: September 03, 2024 Team Status: Inactive Member Role Status Dates Mady BLAKE, PA Primary Care Provider Active Start: September 21, 2024 End: September 21, 2024 Mady BLAKE, PA Referring Provider Active Start: September 21, 2024 End: September 21, 2024 Vira Valderrama PA Attending Provider Active Start: September 21, 2024 End: September 21, 2024 Team Status: Inactive Member Role Status Dates Mady BLAKE, PA Primary Care Provider Active Start: September 21, 2024 End: September 21, 2024 Vira Valderrama PA Attending Provider Active Start: September 21, 2024 End: September 21, 2024 Vira Valderrama PA Referring Provider Active Start: September 21, 2024 End: September 21, 2024 Team Status: Active Member Role Status Dates Mady Covarrubias PA, PA Primary Care Provider Active Start: September 25, 2024 Vira Valderrama PA Attending Provider Active Start: September 25, 2024 Vira Valderrama PA Referring Provider Active Start: September 25, 2024 Team Status: Inactive Member Role Status Dates HAYDEN Dumont Primary Care Provider Active Start: September 25, 2024 End: September 25, 2024 HAYDEN Rain Attending Provider Active Start: September 25, 2024 End: September 25, 2024 HAYDEN Rain Referring Provider Active Start: September 25, 2024 End: September 25, 2024 Management And Budget Analyst Relationship Specialty Start Date End Date Enoc Oliveira MD [address] [place], [place] [id number] PCP - General Family Medicine 06/09/19 Nimco Reyes, ZARA.MOTOR VEHICLE TECHNICIAN [facility] [place], [place] [id number] [facility] 04/07/24 09/16/24 Mady Covarrubias PA-C [facility] [place], [place] [id number] [facility] 04/07/24 09/30/24 Nimco Reyes, ZARA.MOTOR VEHICLE TECHNICIAN [address] [place] [id number] [facility] 10/01/24 Mady Covarrubias PA-C [facility] [place], [place] [id number] [facility] 10/01/24 Team Status: Inactive Member Role Status Dates HAYDEN Dumont Primary Care Provider Active Start: October 24, 2024 End: October 24, 2024 HAYDEN Dumont Referring Provider Active Start: October 24, 2024 End: October 24, 2024 HAYDEN Rain Attending Provider Active Start: October 24, 2024 End: October 24, 2024 Care Team (unrecognized sect ion and content) Care Team Personnel Name: PHYSICIAN, NONE Position: Physician Member Role: Primary Care Physician Care Team Related Persons Name: CONCHITA HENDRICKS Address: [address] [phone] [place] Care Team Personnel Name: PHYSICIAN, NONE Position: Physician Member Role: Primary Care Physician Care Team Related Persons Name: CONCHITA HENDRICKS Address: [address] INFORMATION SOURCE (unrecogn ized section and content) DATE CREATED AUTHOR 03/04/2022 [facility] ([place]) DATE CREATED AUTHOR AUTHOR'S ORGANIZ ATION 09/28/2024 [facility] DATE CREATED AUTHOR AUTHOR'S ORGANIZ ATION 10/26/2024 [facility] Goals (unrecognized section and content) Goals may be documented in a n alternate section FOR RECORDS PERTAINING TO PATIENTS WHO ARE OR HAVE BEEN ENROLLED IN A CHEMICAL DEPENDENCY/SUBSTANCEABUSE PROGRAM, SOME INFORMATION MAY BE OMITTED. This clinical summary was aggregated from multiple sources. Caution should be exercised in using it in the provision of clinical care. This summary normalizes information from multiple sources, and as a consequence, information in this document may materially change the coding, format and clinical context of patient data. In addition, data may be omitted in some cases. CLINICAL DECISIONS SHOULD BE BASED ON THE PRIMARY CLINICAL RECORDS. [facility]. provides no warranty or guarantee of the accuracy or completeness of information in this document.
[2024-11-03 16:53] VITALS: BP 141/82; PULSE 83; RESP 16; TEMP 36.7; O2SAT 97
== END 2024-11-03 16:54 | disposition home or self-care (01) ==
PROVIDERS: Emergency Provider Emergency Medicine; PCP Physician Assistant; Visit Provider Emergency Medicine
DX: S40.011A Contusion of right shoulder, initial encounter (principal); S70.01XA Contusion of right hip, initial encounter; Z87.891 Personal history of nicotine dependence; K21.9 Gastro-esophageal reflux disease without esophagitis; W18.2XXA Fall in (into) shower or empty bathtub, initial encounter; Y93.E9 Activity, other interior property and clothing maintenance
CPT/HCPCS: 73030; 73060; 99282